=== PATIENT | female | born 1995 | race Hispanic/Latino ===

== ENCOUNTER 2018-10-02 21:46 | Emergency (ER) | payer OTHER, MEDICAID, SELFPAY ==
[2018-10-02 22:00] VITALS: BP 130/85; PULSE 105; RESP 18; TEMP 36.1; O2SAT 96; BMI 43.4
--- NOTE | 2018-10-02 22:33 | ED.ABDPAIN ---
HPI - Abdominal Pain General Chief Complaint: Abdominal Pain Stated Complaint: STATES PAIN FROM CYST ON OVARY Time Seen by Provider: 10/02/18 22:32 Source: patient and family Mode of arrival: ambulatory Limitations: no limitations History of Present Illness HPI narrative: 23-year-old female, nonsmoker presents with chief complaint lower pelvic pain consistent with a previously diagnosed right ovarian cyst. She states her pain is worse with motion and improves with rest. She denies any dizziness, weakness or lightheadedness. She denies nausea or vomiting. She denies any vaginal discharge but has had minimal bleeding. Her symptoms have been significant ever since an IUD that was placed in May. She had been put on some unknown control for help with her symptoms. MD complaint: abdominal pain Onset (ago): day(s) Pain Consistency: constant Location: suprapubic Severity: mild Related Data Allergies Allergy/AdvReac Type Severity Reaction Status Date / Time No Known Drug Allergies Allergy Verified 10/03/18 00:12 Review of Systems Constitutional Denies chills, Denies fever(s), Denies lethargy and Denies weakness Eyes Denies change in vision, Denies eye discharge, Denies irritation and Denies loss of vision ENT Ears, Nose, Mouth, and Throat: Denies change in voice, Denies neck pain and Denies sore throat Cardiovascular Denies chest pain, Denies irregular heart rhythm, Denies lightheadedness, Denies palpitations, Denies dyspnea, Denies dyspnea on exertion and Denies orthopnea Respiratory Denies cough, Denies dyspnea, Denies dyspnea on exertion and Denies wheezing Gastrointestinal Gastrointestinal: Denies abdominal pain, Denies change in bowel habits, Denies diarrhea, Denies nausea and Denies vomiting Genitourinary Denies hematuria, Reports pelvic pain, Denies flank pain, Denies urinary incontinence and Denies urinary urgency Musculoskeletal Denies neck pain Integumentary/Breasts Denies pruritus, Denies erythema, Denies rash and Denies wounds Neurologic Denies confusion, Denies loss of vision and Denies weakness Psychiatric Denies anxiety, Denies confusion, Denies depression, Denies homicidal ideation and Denies suicidal ideation Endocrine Denies palpitations Hematologic/Lymphatic Denies easy bruising Allergic/Immunologic Denies wheezing PFSH Social History Smoking Status: Never smoker Exam Narrative Exam Narrative: GEN: Morbidly obese 23-year-old female in mild distress, clutching her right lower abdomen EYES: Pupils are equal, round, and reactive to light and accommodation. Extraoccular muscles are intact bilaterally. There is no subconjunctival hemorrhage or exudate. CHEST: Lungs are clear to auscultation bilaterally and free of wheezes, rales, or rhonchi. Heart rate is regular rhythm, there are no murmurs, clicks, rubs, or gallops. There is no chest wall tenderness. ABD: Abdomen is soft and moderate tenderness. There is no guarding or rebound. Bowel sounds are normal in all 4 quadrants. There is no mass or organomegaly. EXT: Full painless ROM of all extremities with no loss of sensation or strength. SKIN: Warm, pink, and dry. No erythema or rash Initial Vital Signs Initial Vital Signs: Vital Signs Temperature 97 F L 10/02/18 22:00 Pulse Rate 105 H 10/02/18 22:00 Respiratory Rate 18 10/02/18 22:00 Blood Pressure 130/85 10/02/18 22:00 Pulse Oximetry 96 10/02/18 22:00 Course Orders Ordered: ED Orders 10/02/18 23:13 US pelvic complete Stat 10/03/18 00:33 Urine Microscopic Stat Discontinued Medications Hydrocodone Bitart/Acetaminophen (Vicodin Prepack) 1 bottle MISC SEEINSTR ONE Stop: 10/03/18 01:16 Last Admin: 10/03/18 01:22 Dose: 1 bottle Ketorolac Tromethamine (Toradol) 60 mg IM NOW ONE Stop: 10/02/18 23:13 Last Admin: 10/02/18 23:22 Dose: 60 mg Vital Signs - 8 hr 10/02/18 22:00 10/03/18 01:25 Temperature 97 F L Pulse Rate 105 H 95 H Respiratory Rate 18 18 Blood Pressure 130/85 125/80 Pulse Oximetry 96 98 MDM - Abdominal Pain Differential Diagnosis Differential diagnosis: Likely abdominal pain, acute appendicitis, calculus of kidney, constipation, diverticulitis, endometriosis, gastroenteritis, pancreatitis and small bowel obstruction Medical Records Attestation: I reviewed the patient's medical records. Lab Data Attestation: I reviewed the patient's lab results. Lab Results 10/03/18 Range/Units 00:33 Urine RBC 1-5/hpf (0-5/HPF) Urine WBC 1-5/hpf (0-5/HPF) Ur Squamous Epith Cells 5-10 /hpf H Calcium Oxalate Crystal Moderate H (None) Urine Bacteria Few (2-10) H (None) Urine Mucus 2+ H (Negative) Ur Culture Indicated? Culture not indicate Micro UA Comment Point of care testing: Point of Care Testing Test Results Negative Urine Dip Bedside Urine Glucose 100 mg/dl Bedside Urine Bilirubin - Negative Bedside Urine Ketone +/- 5 Urine Specific [place] 1.03 Bedside Urine Occult Blood +++ Bedside Urine pH 5.5 Bedside Urine Protein + 30 Bedside Urine Urobilinogen +/- 1mg Bedside Urine Nitrite - Negative Bedside Urine Leukocytes +/- 15 Esterase Imaging Data US - abdomen: Radiologist's impression: Well positioned IUD. Trace fluid in the cervix. 1.2 cm maximum diameter follicle left ovary. 1.8 cm simple dominant follicle in right ovary Discharge Plan Departure Patient Disposition: Home Clinical Impression: Ovarian cyst Discharge Date/Time: 10/03/18 01:25 Interventions: ED Discharge Assessment Last Done: 10/03/18 01:25 Instructions: DI for Ovarian Cyst Activity Restrictions/Additional Instructions: *You have been diagnosed with [ ovarian cyst pain ] *What to do: *Take medications as directed *Follow up with your primary care provider in 2-3 days, call for an appointment. Let them know you were seen in the Emergency Department and that we ask that you be seen in follow up *Return to ER if you should have any new, worsening or concerning symptoms
--- NOTE | 2018-10-02 23:13 | DI.US.S_ITS ---
PROCEDURE: US PELVIC COMPLETE INDICATIONS: PAIN; HISTORY CYSTS TECHNIQUE: Real-time scanning was performed of the pelvic organs, with image documentation. Additional endovaginal scanning was necessary due to incomplete visualization of the adnexal and endometrial structures by transabdominal scanning. COMPARISON: None. FINDINGS: Transabdominal scanning: Limited scanning through the kidneys shows no hydronephrosis. No pathologic free abdominal or pelvic fluid. Endovaginal scanning: Uterus: Uterus is normal in size at 8.9 x 4.1 x 5.9 cm. appropriately positioned intrauterine device is noted. Possible section scar is noted in the lower uterine segment; please correlate with clinical history. The endometrium measures 7.4 mm in combined thickness. Ovaries: Right adnexa measures 3.7 x 2.7 x 2.8 cm. There is a 1.8 x 1.4 x 1.3 cm simple cyst in the left adnexa. Left adnexa measures 3.3 x 2.1 x 2.7 cm. There is a 1.1 x 1.2 x 1.0 cm complex cyst in left adnexa. Doppler evaluation of the left adnexal cyst demonstrates no internal vascularity. IMPRESSION: 1. Intrauterine device appears properly positioned. 2. Probable lower uterine segment section scar. 3. 1.8 cm simple right adnexal cyst. 3. 1.2 cm complex left adnexal cyst which likely represents small hemorrhagic cyst. Recommend followup ultrasound in 4-6 weeks to ensure resolution of the finding. Dictated by: Joan Tatum MD, PhD on 10/03/2018 at 9:05 Approved by: Joan Tatum MD, PhD on 10/03/2018 at 9:09
[2018-10-02] MEDS: KETOROLAC 60 MG/2 ML VIAL IM (23:22)
[2018-10-03 00:47] LABS: Calcium Oxalate Crystals Urine Moderate; RBC Urine 1-5/HPF (0-5/HPF); Squamous Epithelial Cell Urine 5-10 /HPF; WBC Urine 1-5/HPF (0-5/HPF)
[2018-10-03 00:48] LABS: Bacteria Urine Few (2-10); Mucus Urine 2+ (Negative)
[2018-10-03] MEDS: HYDROCODONE/ACET 5/325 PREPACK 1 BOTTLE MISC (01:22)
[2018-10-03 01:25] VITALS: BP 125/80; PULSE 95; RESP 18; O2SAT 98
== END 2018-10-03 01:25 | disposition home or self-care (01) ==
PROVIDERS: Emergency Provider Emergency Medicine
DX: N83.209 Unspecified ovarian cyst, unspecified side (principal)
CPT/HCPCS: 76830; 76856; 81003; 81015; 81025; 96372; 99282; 99284; J1885

== ENCOUNTER 2019-01-22 22:54 | Emergency (ER) | payer OTHER, MEDICAID, SELFPAY ==
[2019-01-22 23:04] VITALS: BP 137/84; PULSE 120; RESP 20; TEMP 36.7; O2SAT 96; BMI 43.4
--- NOTE | 2019-01-22 23:55 | ED.BACK ---
HPI - Back Pain/Injury General Chief Complaint: Back Pain/Injury Stated Complaint: LOW BACK PAIN Time Seen by Provider: 01/22/19 22:58 Source: patient and family Mode of arrival: ambulatory Limitations: no limitations History of Present Illness HPI Narrative: 23-year-old female nonsmoker presents with 1 year of lumbar pain with radiation to her right buttock. She states the pain has been present off and on ever since she had an epidural with the delivery of her last child. She denies any numbness, tingling or weakness. She states her pain is worse with motion and improves with rest. She denies fever or chills. her pain is present the majority of the time but made worse by the above. She denies any saddle anesthesia or foot drop. She has no trouble with bowel or bladder control MD Complaint: back pain and back injury Onset (ago): year(s) Duration: intermittent Similar Symptoms Previously: Yes Location: lumbar spine Severity: moderate Quality: sharp and stabbing Radiation: buttocks Severity scale (1-10): 8 Relieving factors: none Exacerbating factors: movement Context: other Associated symptoms: denies other symptoms Related Data Previous Rx's Medication Instructions Recorded hydrocodone-acetaminophen 1 tab PO Q4-6H PRN #10 tab 01/23/19 ketorolac 10 mg PO Q6H PRN #14 tab 01/23/19 prednisone 20 mg PO DAILY #5 tab 01/23/19 Allergies Allergy/AdvReac Type Severity Reaction Status Date / Time No Known Drug Allergies Allergy Verified 10/03/18 00:12 Review of Systems Review of Systems ROS Unobtainable: All systems reviewed & are unremarkable except as noted in HPI and below Constitutional Denies chills, Denies fever(s), Denies lethargy and Denies weakness Eyes Denies change in vision, Denies eye discharge, Denies irritation and Denies loss of vision ENT Ears, Nose, Mouth, and Throat: Denies change in voice, Denies neck pain and Denies sore throat Cardiovascular Denies chest pain, Denies irregular heart rhythm, Denies lightheadedness, Denies palpitations, Denies dyspnea, Denies dyspnea on exertion and Denies orthopnea Respiratory Denies cough, Denies dyspnea, Denies dyspnea on exertion and Denies wheezing Gastrointestinal Gastrointestinal: Denies abdominal pain, Denies change in bowel habits, Denies diarrhea, Denies nausea and Denies vomiting Genitourinary Denies hematuria, Denies flank pain, Denies urinary incontinence and Denies urinary urgency Musculoskeletal Reports back pain and Denies neck pain Integumentary/Breasts Denies pruritus, Denies erythema, Denies rash and Denies wounds Neurologic Denies confusion, Denies loss of vision and Denies weakness Psychiatric Denies anxiety, Denies confusion, Denies depression, Denies homicidal ideation and Denies suicidal ideation Endocrine Denies palpitations Hematologic/Lymphatic Denies easy bruising Allergic/Immunologic Denies wheezing PFSH Social History Smoking Status: Never smoker Social History Smoking Status: Never smoker Exam Narrative Exam Narrative: GENERAL: This is a well-nourished, well-developed patient, in mild distress. HEAD: Atraumatic. Normocephalic. No temporal or scalp tenderness. EYES: Pupils equal round and reactive. Extraocular motions intact. No scleral icterus. No injection or drainage. ENT: Nose without bleeding, purulent drainage or septal hematoma. Throat without erythema, tonsillar hypertrophy or exudate. Uvula midline. Airway patent. NECK: Trachea midline. No JVD or lymphadenopathy. Supple, nontender, no meningeal signs. CARDIOVASCULAR: Regular rate and rhythm without murmurs, gallops, or rubs. RESPIRATORY: Clear to auscultation. Breath sounds equal bilaterally. No wheezes, rales, or rhonchi. GASTROINTESTINAL: Abdomen soft, non-tender, nondistended. No hepato-splenomegaly, or palpable masses. No guarding. EXTREMITIES: No clubbing, cyanosis, or edema. No joint tenderness, effusion, or edema noted. BACK: decorating machine tender but free of any obvious external abnormalities. Patient exam notes decreased range of motion and muscle spasm, but no CVA tenderness, or vertebral point tenderness. There are no symptoms of cauda equina such as saddle anesthesia, and decreased reflexes, decreased sensation or strength. NEURO: AOx3. SKIN: No rash or erythema. Initial Vital Signs Initial Vital Signs: Vital Signs Temperature 98.1 F 01/22/19 23:04 Pulse Rate 120 H 01/22/19 23:04 Respiratory Rate 20 01/22/19 23:04 Blood Pressure 137/84 01/22/19 23:04 Pulse Oximetry 96 01/22/19 23:04 Course Orders Ordered: Discontinued Medications Hydrocodone Bitart/Acetaminophen (Vicodin Prepack) 1 bottle MISC SEEINSTR ONE Stop: 01/23/19 00:07 Last Admin: 01/23/19 00:23 Dose: 1 bottle Ketorolac Tromethamine (Toradol) 60 mg IM NOW ONE Stop: 01/23/19 00:07 Last Admin: 01/23/19 00:23 Dose: 60 mg Prednisone (Deltasone) 40 mg PO NOW ONE Stop: 01/23/19 00:07 Last Admin: 01/23/19 00:24 Dose: 40 mg Vital Signs - 8 hr 01/22/19 23:04 Temperature 98.1 F Pulse Rate 120 H Respiratory Rate 20 Blood Pressure 137/84 Pulse Oximetry 96 MDM - Back Pain/Injury MDM Narrative Medical decision making narrative: Multiple etiologies of back pain considered including; Epidural abscess, cauda equina, mass occupying lesion, and other considered Discharge Plan Departure Patient Disposition: Home Clinical Impression: Strain of lumbar region Qualifiers: Encounter type: initial encounter Qualified Code(s): S39.012A - Strain of muscle, fascia and tendon of lower back, initial encounter Instructions: DI for Low Back Pain Activity Restrictions/Additional Instructions: *You have been diagnosed with [chronic low back pain] *What to do: *Take medications as directed *Follow up with your primary care provider in 2-3 days, call for an appointment. Let them know you were seen in the Emergency Department and that we ask that you be seen in follow up *Return to ER if you should have any new, worsening or concerning symptoms, such as [worsening pain, fever, chills, weakness of your right leg, trouble controlling her bowel or bladder or other bothersome symptoms] Prescriptions: New hydrocodone-acetaminophen 5-325 mg tablet 1 tab PO Q4-6H PRN (Reason: pain) Qty: 10 RF: 0 prednisone 20 mg tablet 20 mg PO DAILY Qty: 5 RF: 0 ketorolac 10 mg tablet 10 mg PO Q6H PRN (Reason: pain) Qty: 14 RF: 0
[2019-01-23] MEDS: KETOROLAC 60 MG/2 ML VIAL IM (00:23)
[2019-01-23] MEDS: HYDROCODONE/ACET 5/325 PREPACK 1 BOTTLE MISC (00:23)
[2019-01-23] MEDS: predniSONE 20 MG TABLET 40 MG PO (00:24)
[2019-01-23 00:56] VITALS: BP 144/94; PULSE 103; O2SAT 97
== END 2019-01-23 00:56 | disposition home or self-care (01) ==
PROVIDERS: Emergency Provider Emergency Medicine
DX: S39.012A Strain of muscle, fascia and tendon of lower back, initial encounter (principal)
CPT/HCPCS: 96372; 99282; 99283; J1885

== ENCOUNTER → 2019-04-09 14:30 | Outpatient (CLI) | payer OTHER, MEDICAID, SELFPAY ==
--- NOTE | 2019-04-09 14:33 | DI.RAD.S_ITS ---
PROCEDURE: XR ABDOMEN 1V INDICATIONS: Missing IUD TECHNIQUE: One view of the abdomen acquired. COMPARISON: None. FINDINGS: Surgical changes and devices: None. Bowel: Bowel gas pattern is normal. Soft tissues: No suspicious abdominal calcifications. Visualized solid organ contours appear normal in size. Bones: No suspicious bony lesions. IMPRESSION: No visualized IUD. Dictated by: Bi Thorne M.D. on 04/09/2019 at 15:51 Approved by: Bi Thorne M.D. on 04/09/2019 at 15:52
== END ==
PROVIDERS: PCP Hospitalist; Visit Provider Specialist
DX: T83.32XA Displacement of intrauterine contraceptive device, initial encounter (principal)
CPT/HCPCS: 74018

== ENCOUNTER → 2019-05-06 13:00 | Outpatient (CLI) | payer OTHER, MEDICAID, SELFPAY | PROVIDERS: PCP Hospitalist; Visit Provider Hospitalist | DX: R19.7 Diarrhea, unspecified (principal) | CPT/HCPCS: 87045; 87147; 87899 ==

== ENCOUNTER 2019-05-16 23:17 | Emergency (ER) | payer OTHER, MEDICAID, SELFPAY ==
--- NOTE | 2019-05-16 23:20 | ED.ABDPAIN ---
HPI - Abdominal Pain General Chief Complaint: GI Bleed Stated Complaint: abdominal pain Time Seen by Provider: 05/16/19 23:20 Source: patient Mode of arrival: ambulatory Limitations: no limitations History of Present Illness HPI narrative: Patient is a 24-year-old female here for evaluation of bright red blood per rectum. Patient states she has been diagnosed with hemorrhoids in the past. She states that she does have pain with going to the bathroom. She states she had 1 episode of bright red blood today. She also states she has diarrhea. This is not new. She has talked with her primary doctor about this. She states that her primary doctor has not referred her to see a GI specialist. No vaginal bleeding. No urinary symptoms. She also is complaining of right-sided abdominal pain. Related Data Previous Rx's Medication Instructions Recorded citalopram 20 mg tablet 20 mg PO DAILY #30 tab 04/01/19 norelgestromin 150 mcg-e.estradiol 1 patch TRANSDERMAL QWEEK #3 each 04/09/19 35 mcg/24 hr weekly transderm patch hydrocortisone acetate 25 mg 25 mg HI BEDTIME #12 each 05/05/19 rectal suppository nortriptyline 25 mg capsule 25 mg PO BEDTIME #30 cap 05/14/19 Allergies Allergy/AdvReac Type Severity Reaction Status Date / Time No Known Drug Allergies Allergy Verified 05/16/19 23:29 Review of Systems Constitutional Denies fever(s) Cardiovascular Denies chest pain and Denies dyspnea Respiratory Denies dyspnea Gastrointestinal Gastrointestinal: Reports abdominal pain, Denies nausea and Denies vomiting Comments: Diarrhea bright red blood per rectum Musculoskeletal Denies back pain and Denies arthralgias Integumentary/Breasts Denies rash Neurologic Denies behavioral changes Psychiatric Denies behavioral changes Hematologic/Lymphatic Denies easy bleeding and Denies easy bruising [facility] Medical History Hemorrhoids (Acute) Social History Smoking Status: Never smoker Social History Smoking Status: Never smoker Exam Initial Vital Signs Initial Vital Signs: Vital Signs Temperature 98.4 F 05/16/19 23:25 Pulse Rate 97 H 05/16/19 23:25 Respiratory Rate 18 05/16/19 23:25 Blood Pressure 153/90 H 05/16/19 23:25 Pulse Oximetry 98 05/16/19 23:25 Const General: cooperative, well developed and well groomed Orientation: alert, awake and oriented x3 Resp Effort & Inspection: normal respiratory effort Auscultation: clear to auscultation bilaterally Cardio Rate: tachycardic Rhythm: regular rhythm GI Inspection: non-distended Palpation: soft, No firm and tender (Mild tender right side abdomen) Skin Lesions: no lesions Rashes: no rashes Neuro General: alert and awake Cognition: normal cognition Speech: speech normal Extrem General: normal to inspection and capillary refill normal Psych Appearance: grossly normal and well kempt Course Orders Ordered: ED Orders 05/16/19 23:40 CT abdomen pelvis w con Stat Basic Metabolic Panel Stat Complete Blood Count AUTO DIFF Stat 05/16/19 23:54 Urine Culture Stat Urine Microscopic Stat Discontinued Medications Sodium Chloride (Normal Saline 0.9%) 1,000 mls @ 1,000 mls/hr IV BOLUS ONE Stop: 05/17/19 00:39 Last Infusion: 05/17/19 01:30 Dose: 0 mls/hr Admin: 05/17/19 00:15 Dose: 1,000 mls/hr Vital Signs - 8 hr 05/16/19 23:25 05/17/19 01:33 Temperature 98.4 F Pulse Rate 97 H 109 H Respiratory Rate 18 14 Blood Pressure 153/90 H Blood Pressure [Right Arm] 109/52 L Pulse Oximetry 98 98 MDM - Abdominal Pain Medical Records Attestation: I reviewed the patient's medical records. Lab Data Attestation: I reviewed the patient's lab results. Result diagrams: 05/17/19 00:15 05/17/19 00:15 Lab Results 05/16/19 05/17/19 05/17/19 Range/Units 23:54 00:15 00:15 WBC 11.6 H (4.5-11.0) X10^3/uL RBC 5.16 (4.0-5.2) X10^6/uL Hgb 14.0 (12.0-16.0) g/dL Hct 40.5 (36-46) % MCV 78.4 L (80-100) fL MCH 27.1 (26-34) PG MCHC 34.6 (30-36) % RDW 13.7 (11.6-14.8) % Plt Count 254 (150-400) X10^3/uL Neut % (Auto) 58.5 (50-75) % Lymph % (Auto) 31.8 (25-40) % Stone % (Auto) 7.0 (3-14) % Eos % (Auto) 2.2 (2-4) % Baso % (Auto) 0.5 (0-2) % Neut # (Auto) 6800 (5072-7476) /uL Lymph # (Auto) 3700 (0293-9229) /uL Stone # (Auto) 800 (0-900) /uL Eos # (Auto) 300 (0-450) /uL Baso # (Auto) 100 (0-100) /uL Sodium 139 (137-145) mmol/L Potassium 3.9 (3.4-5.1) mmol/L Chloride 100 (98-107) mmol/L Carbon Dioxide 25 (22-32) mmol/L BUN 9 (7-17) mg/dL Creatinine 0.40 L (0.52-1.04) mg/dL Estimated GFR > 60.0 (>60) mL/min BUN/Creatinine Ratio 22.5 H (6-22) Glucose 257 H (70-100) mg/dL Calcium 9.8 (8.4-10.2) mg/dL Urine RBC 0-1/hpf (0-5/HPF) Urine WBC 0-1/hpf (0-5/HPF) Ur Squamous Epith Cells 1-5 /hpf (0-5/HPF) Urine Bacteria None seen (None) Ur Culture Indicated? Specimen cultured Micro UA Comment Vicky esterase + Point of care testing: Point of Care Testing Test Results Negative Urine Dip Bedside Urine Glucose 500 mg/dl Bedside Urine Bilirubin - Negative Bedside Urine Ketone + 15 Urine Specific [place] 1.025 Bedside Urine Occult Blood - Negative Bedside Urine pH 6 Bedside Urine Protein +/- 15 Bedside Urine Urobilinogen +/- 1mg Bedside Urine Nitrite + Positive Bedside Urine Leukocytes + [address] scan - abdomen: Radiologist's impression: Preliminary read Normal appendix No diverticulitis or bowel obstruction MDM Narrative Medical decision making narrative: Labs are unremarkable, has a relatively benign abdominal exam. CT scan is negative. I do suspect her symptoms are secondary to her hemorrhoids. I did inform her that she should talk with the primary doctor about referral to have a colonoscopy. There is no surgical issue currently. Will hold on further workup. Patient was given return precautions and follow-up instructions. She expressed understanding and agreement plan. Discharge Plan Departure Patient Disposition: Home Clinical Impression: Bright red blood per rectum Abdominal pain Qualifiers: Abdominal location: unspecified location Qualified Code(s): R10.9 - Unspecified abdominal pain Instructions: DI for Rectal Bleeding Activity Restrictions/Additional Instructions: I do recommend that you talk with your primary doctor on Saturday about the indications for referral to have a colonoscopy. Return to the emergency department for any new symptoms. Prescriptions: No Action citalopram [Celexa] 20 mg tablet 20 mg PO DAILY Qty: 30 RF: 1 Xulane 150-35 mcg/24 hr patch weekly 1 patch transdermal QWEEK Qty: 3 RF: 6 hydrocortisone acetate [Anucort-HC] 25 mg suppository 25 mg HI BEDTIME Qty: 12 RF: 0 nortriptyline 25 mg capsule 25 mg PO BEDTIME Qty: 30 RF: 0 Referrals: Amanda Balderrama MD [Primary Care Provider] -
[2019-05-16 23:25] VITALS: BP 153/90; PULSE 97; RESP 18; TEMP 36.9; O2SAT 98; BMI 36.6
--- NOTE | 2019-05-16 23:40 | DI.CT.S_ITS ---
PROCEDURE: CT ABDOMEN PELVIS W CON INDICATIONS: Right-sided abdominal pain TECHNIQUE: After the administration of oral and intravenous contrast, 5 mm thick sections acquired from the diaphragms to the symphysis. 5 mm thick coronal and sagittal reformats were performed. For radiation dose reduction, the following was used: automated exposure control, adjustment of mA and/or kV according to patient size. COMPARISON: None. FINDINGS: Image quality: Diagnostic. ABDOMEN: Lung bases: Lung bases are clear. Heart size is normal. Solid organs: The liver is enlarged and measures up to 24.4 cm in craniocaudal dimension. There is prominent hypodensity of the liver when compared to the spleen. More focally prominent areas of low attenuation are evident along the falciform ligament. No solid liver lesions are appreciated. The gallbladder is decompressed and subsequently not well evaluated. No intrahepatic or extrahepatic biliary dilatation is evident. The spleen is enlarged, as well and measures up to 15.7 cm in craniocaudal dimension. No focal splenic lesions are appreciated. The adrenals and pancreas are within normal limits. Both kidneys are normal in size. There is no hydronephrosis or nephrolithiasis. 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 Peritoneum and bowel: Stomach is unremarkable. The small bowel loops are nondilated. The appendix is well-visualized and normal in size. Air and stool are seen within the colon. No free fluid, loculated fluid collection or free air is evident. Subcutaneous thickening and edema is identified within the periumbilical region, which may represent scarring from previous surgery. Nodes and vessels: No retroperitoneal or mesenteric adenopathy. Aorta and inferior vena cava are normal in caliber. Bones: No acute fracture or suspicious osseous lesion. PELVIS: Genitourinary: Bladder wall thickness is normal. The uterus and ovaries are not enlarged or adequately evaluated on CT. Miscellaneous: No inguinal hernias or adenopathy. No free fluid or loculated fluid collection is evident. Bones: No suspicious bony lesions. No acute pelvic fractures are evident. Mild elongation of the bilateral acetabula is present. This can be seen in the setting of femoral acetabular impingement. Please correlate clinically. IMPRESSION: 1. No acute process is evident within the abdomen or pelvis. 2. Hepatosplenomegaly. There is also hepatic steatosis. 3. Normal appendix. No bowel obstruction. Note: The preliminary [facility] report and the final report are concordant. Dictated by: Bry Goodson M.D. on 05/17/2019 at 7:10 Approved by: Bry Goodson M.D. on 05/17/2019 at 7:15
[2019-05-17] MEDS: SODIUM CHLORIDE 0.9% 1,000 ML 1000 ML IV (00:15)
[2019-05-17 00:16] LABS: Bacteria Urine None Seen; RBC Urine 0-1/HPF (0-5/HPF); Squamous Epithelial Cell Urine 1-5 /HPF (0-5/HPF); WBC Urine 0-1/HPF (0-5/HPF)
[2019-05-17 00:17] LABS: Culture Indicated Urine Specimen Cultured; Urine Comments LEU ESTERASE +
[2019-05-17 00:31] LABS: Add Manual Diff / Slide Review NO; Basophils Absolute Auto 100 /uL (0-100); Basophils Percent Auto 0.5 % (0-2); Eosinophils Absolute Auto 300 /uL (0-450); Eosinophils Percent Auto 2.2 % (2-4); Hematocrit 40.5 % (36-46); Lymphocytes Absolute Auto 3700 /uL (1100-4500); Lymphocytes Percent Auto 31.8 % (25-40); Mean Corpuscular HGB Conc 34.6 % (30-36); Mean Corpuscular Hemoglobin 27.1 PG (26-34); Mean Corpuscular Volume 78.4 fL (80-100); Monocytes Absolute Auto 800 /uL (0-900); Neutrophils Absolute Auto 6800 /uL (1500-7000); Neutrophils Percent Auto 58.5 % (50-75); Platelet Count 254 X10^3/uL (150-400); Red Blood Cell Count 5.16 X10^6/uL (4.0-5.2); Red Cell Distribution Width 13.7 % (11.6-14.8); White Blood Cell Count 11.6 X10^3/uL (4.5-11.0)
[2019-05-17 00:36] LABS: BUN Creatinine Ratio 22.5 (6-22); Blood Urea Nitrogen 9 mg/dL (7-17); Calcium 9.8 mg/dL (8.4-10.2); Carbon Dioxide 25 mmol/L (22-32); Chloride 100 mmol/L (98-107); Estimated Glomerular Filt Rate > 60.0 mL/min (>60); Glucose 257 mg/dL (70-100); HEMOLYSIS < 15 (0-50); Potassium 3.9 mmol/L (3.4-5.1); Sodium 139 mmol/L (137-145)
[2019-05-17 01:33] VITALS: BP 109/52; PULSE 109; RESP 14; O2SAT 98
--- NOTE | 2019-05-17 02:06 | PC.NURSE ---
Pt reports having a month of water stools and some bloody stools. Tonight she had bright red blood and clots in the toilet after bowel movment. She called PCP who sent her to ER for evaluation. She reports some lightheadedness and feeling tired. conjunctiva is bright pink with no pallor noted. Pt came in a wheelchair then ambulated self to restroom.
[2019-05-17 02:15] VITALS: BP 115/81; PULSE 98; RESP 14; O2SAT 98
== END 2019-05-17 02:15 | disposition home or self-care (01) ==
PROVIDERS: Emergency Provider Emergency Medicine; PCP Hospitalist
DX: R10.9 Unspecified abdominal pain (principal); K62.5 Hemorrhage of anus and rectum
CPT/HCPCS: 36415; 36591; 74177; 80048; 81003; 81015; 81025; 85025; 87086; 96360; 99283; 99285; Q9967

== ENCOUNTER 2019-05-22 22:42 | Emergency (ER) | payer OTHER, MEDICAID, SELFPAY ==
[2019-05-22 23:21] VITALS: BP 98/62; PULSE 117; RESP 22; TEMP 36.8; O2SAT 96
[2019-05-23] MEDS: SODIUM CHLORIDE 0.9% 1,000 ML 1000 ML IV (00:25)
[2019-05-23 00:33] LABS: Prothrombin Time 11.8 SECONDS (10.1-12.7)
--- NOTE | 2019-05-23 00:33 | ED_ITS ---
HPI - Abdominal Pain General Chief Complaint: Abdominal Pain Stated Complaint: LOTS OF PAIN DOWN BELLOW Time Seen by Provider: 05/23/19 00:33 Source: patient Mode of arrival: ambulatory Limitations: no limitations History of Present Illness HPI narrative: A 24-year-old female comes to the emergency with complaint of abdominal pain. Patient states that she has been having this abdominal pain on off for a while but it is much worse tonight. She did start her right side but now it is more right lower quadrant. Patient has had issues with nausea but no vomiting. She has had issues with bowel movements with blood in them on and off for several weeks and is in the process of being set up for a colonoscopy. She is currently on her period but states that that is a regular thing and has not been related to her blood. She denies any dysuria urgency or frequency. She denies any vaginal discharge or odor. Patient states she has a history of PCOS. She has been following with Dr. Balderrama in order to get set up for full or other evaluation. She has had a history of an ovarian cyst which required removal, sh e states was about softball size. Related Data Previous Rx's Medication Instructions Recorded citalopram 20 mg tablet 20 mg PO DAILY #30 tab 04/01/19 norelgestromin 150 mcg-e.estradiol 1 patch TRANSDERMAL QWEEK #3 each 04/09/19 35 mcg/24 hr weekly transderm patch nortriptyline 25 mg capsule 25 mg PO BEDTIME #30 cap 05/14/19 hydrocortisone acetate 25 mg 25 mg UT BEDTIME #12 each 05/19/19 rectal suppository dicyclomine 20 mg PO QID PRN #14 tab 05/23/19 Allergies Allergy/AdvReac Type Severity Reaction Status Date / Time No Known Drug Allergies Allergy Verified 05/19/19 12:17 Review of Systems Review of Systems ROS Unobtainable: All systems reviewed & are unremarkable except as noted in HPI and below PFSH Social History Smoking Status: Never smoker Social History Smoking Status: Never smoker Exam Narrative Exam Narrative: GENERAL: Alert and oriented x three, obese female in moderate distress. HEENT: Head normocephalic, atraumatic, EOMI, pupils reactive, face symmetric, moist mucous membranes NECK: Supple, full range of motion CARDIOVASCULAR: Regular rate and rhythm without murmurs, rubs or gallops. RESPIRATORY: Breath sounds equal bilaterally, no wheezes rales or rhonchi. ABDOMEN: Soft, right lower quadrant tenderness. Normoactive bowel sounds all 4 quadrants. No guarding or rebound, rigidity, no mass. : Mild right CVA tenderness, no left CVA tenderness. EXTREMITIES: Normal range of motion, no clubbing or edema. Neurovascularly intact NEUROLOGICAL: Cranial nerves II through XII grossly intact. Moving all e xtremities SKIN: Warm, dry, no petechiae, no rashes or lesions. Initial Vital Signs Initial Vital Signs: Vital Signs Temperature 98.3 F 05/22/19 23:21 Pulse Rate 117 H 05/22/19 23:21 Respiratory Rate 22 05/22/19 23:21 Blood Pressure 98/62 05/22/19 23:21 Pulse Oximetry 96 05/22/19 23:21 Course Orders Ordered: ED Orders 05/22/19 23:32 Complete Blood Count AUTO DIFF Stat Comprehensive Metabolic Panel Stat Lipase Stat Partial Thromboplastin Time Stat Prothrombin Time INR Stat 05/23/19 00:59 CT abdomen pelvis w con Stat 05/23/19 01:00 Urine Culture Stat Urine Microscopic Stat Discontinued Medications Sodium Chloride (Normal Saline 0.9%) 1,000 mls @ 1,000 mls/hr IV BOLUS ONE Stop: 05/23/19 00:34 Last Infusion: 05/23/19 01:38 Dose: 0 mls/hr Documented by: Admin: 05/23/19 00:25 Dose: 1,000 mls/hr Documented by: DENA Ketorolac Tromethamine (Toradol) 30 mg IV NOW ONE Stop: 05/23/19 00:59 Last Admin: 05/23/19 01:17 Dose: 30 mg Documented by: DENA Ondansetron HCl (Zofran) 4 mg IV NOW ONE Stop: 05/23/19 00:59 Last Admin: 05/23/19 01:17 Dose: 4 mg Documented by: DENA Vital Signs Vital signs: Vital Signs - 8 hr 05/22/19 23:21 05/23/19 01:18 05/23/19 03:12 Temperature 98.3 F Pulse Rate 117 H 111 H 106 H Respiratory Rate 22 17 22 Blood Pressure 98/62 114/67 Blood Pressure [Left Arm] 141/88 H Pulse Oximetry 96 98 99 MDM - Abdominal Pain Lab Data Attestation: I reviewed the patient's lab results. Result diagrams: 05/23/19 00:20 05/23/19 00:20 Labs: Lab Results 05/23/19 05/23/19 05/23/19 Range/Units 00:20 00:20 00:20 WBC 12.1 H (4.5-11.0) X10^3/uL RBC 5.01 (4.0-5.2) X10^6/uL Hgb 13.4 (12.0-16.0) g/dL Hct 39.6 (36-46) % MCV 79.0 L (80-100) fL MCH 26.8 (26-34) PG MCHC 34.0 (30-36) % RDW 13.8 (11.6-14.8) % Plt Count 298 (150-400) X10^3/uL Neut % (Auto) 61.5 (50-75) % Lymph % (Auto) 29.0 (25-40) % Barton % (Auto) 6.9 (3-14) % Eos % (Auto) 1.9 L (2-4) % Baso % (Auto) 0.7 (0-2) % Neut # (Auto) 7500 H (2344-9777) /uL Lymph # (Auto) 3500 (0120-2376) /uL Barton # (Auto) 800 (0-900) /uL Eos # (Auto) 200 (0-450) /uL Baso # (Auto) 100 (0-100) /uL PT 11.8 (10.1-12.7) SECONDS INR 1.0 (0.9-1.3) APTT 34 (26.4-36.2) SECONDS Sodium 139 (137-145) mmol/L Potassium 4.0 (3.4-5.1) mmol/L Chloride 102 (98-107) mmol/L Carbon Dioxide 24 (22-32) mmol/L BUN 9 (7-17) mg/dL Creatinine 0.40 L (0.52-1.04) mg/dL Estimated GFR > 60.0 (>60) mL/min BUN/Creatinine Ratio 22.5 H (6-22) Glucose 221 H (70-100) mg/dL Calcium 9.4 (8.4-10.2) mg/dL Total Bilirubin 0.2 (0.2-1.3) mg/dL AST 78 H (14-36) IU/L ALT 38 (9-52) IU/L Alkaline Phosphatase 69 (38-126) U/L Total Protein 7.7 (6.3-8.2) g/dL Albumin 4.2 (3.5-5.0) g/dL Globulin 3.5 (1.7-4.1) g/dL Albumin/Globulin Ratio 1.2 (1.0-2.8) Lipase 44 (23-300) U/L Urine RBC (0-5/HPF) Urine WBC (0-5/HPF) Ur Squamous Epith Cells (0-5/HPF) Urine Bacteria (None) Ur Culture Indicated? 05/23/19 Range/Units 01:00 WBC (4.5-11.0) X10^3/uL RBC (4.0-5.2) X10^6/uL Hgb (12.0-16.0) g/dL Hct (36-46) % MCV (80-100) fL MCH (26-34) PG MCHC (30-36) % RDW (11.6-14.8) % Plt Count (150-400) X10^3/uL Neut % (Auto) (50-75) % Lymph % (Auto) (25-40) % Barton % (Auto) (3-14) % Eos % (Auto) (2-4) % Baso % (Auto) (0-2) % Neut # (Auto) (9035-7402) /uL Lymph # (Auto) (0061-1537) /uL Barton # (Auto) (0-900) /uL Eos # (Auto) (0-450) /uL Baso # (Auto) (0-100) /uL PT (10.1-12.7) SECONDS INR (0.9-1.3) APTT (26.4-36.2) SECONDS Sodium (137-145) mmol/L Potassium (3.4-5.1) mmol/L Chloride (98-107) mmol/L Carbon Dioxide (22-32) mmol/L BUN (7-17) mg/dL Creatinine (0.52-1.04) mg/dL Estimated GFR (>60) mL/min BUN/Creatinine Ratio (6-22) Glucose (70-100) mg/dL Calcium (8.4-10.2) mg/dL Total Bilirubin (0.2-1.3) mg/dL AST (14-36) IU/L ALT (9-52) IU/L Alkaline Phosphatase (38-126) U/L Total Protein (6.3-8.2) g/dL Albumin (3.5-5.0) g/dL Globulin (1.7-4.1) g/dL Albumin/Globulin Ratio (1.0-2.8) Lipase (23-300) U/L Urine RBC None seen (0-5/HPF) Urine WBC 0-1/hpf (0-5/HPF) Ur Squamous Epith Cells 1-5 /hpf (0-5/HPF) Urine Bacteria Few (2-10) H (None) Ur Culture Indicated? Specimen cultured Point of care testing: Point of Care Testing Test Results Negative Urine Dip Bedside Urine Glucose 250 mg/dl Bedside Urine Bilirubin - Negative Bedside Urine Ketone + 15 Urine Specific [place] 1.030 Bedside Urine Occult Blood - Negative Bedside Urine pH 6.0 Bedside Urine Protein + 30 Bedside Urine Urobilinogen 1+ 2mg Bedside Urine Nitrite - Negative Bedside Urine Leukocytes +/- [address] scan - abdomen: Radiologist's impression: Twenty lung bases clear, fatty hepatomegaly again noted. Gallbladder and solid organs otherwise unremarkable. No urolithiasis. Uterus, ovaries and appendix normal. No bowel obstruction, pneumoperitoneum, hernia or acute fracture. [facility] Narrative Medical decision making narrative: Discussed with patient her white count is very slightly high at 13, she has been slightly tachycardic throughout her stay but she states that is normal for her when she is in pain. Patient's lab work otherwise not show a lot of other major abnormalities her single LFT is slightly elevated. Urine shows some leuks but no nitrates and was sent for urine culture but patient's symptoms sound more GI in nature she is scheduled to follow up with General surgery on Saturday for possible scope. CT of abdomen pelvis does not show any acute findings. Patient has never been on Bentyl but does describe crampy like pain so we discussed trying this in the short term. Patient feeling more comfortable. Discharge Plan Departure Patient Disposition: Home Clinical Impression: Abdominal pain Discharge Date/Time: 05/23/19 03:12 Instructions: DI for Abdominal Pain-Adult Activity Restrictions/Additional Instructions: Follow-up with your physician this week for recheck. I would encourage you to follow up with General surgery for colonoscopy is you have already planning. Your urine was sent for urine culture today shows possible infection and takes 24-48 hours to result. If positive you will get a phone call. Continue home medications as prescribed. Take Bentyl 1 tablet every 6-8 hours as needed for abdominal spasm or cramping. Your prescription was sent to [facility] in [place]. Return to the emergency department for fevers greater than 100.4 F, persistent vomiting, rapidly worsening symptoms, passing out, new chest pain or shortness of breath, bloody stools that are increasing or any other new or concerning symptoms. Prescriptions: New dicyclomine 20 mg tablet 20 mg PO QID PRN (Reason: spasm) Qty: 14 RF: 0 No Action citalopram [Celexa] 20 mg tablet 20 mg PO DAILY Qty: 30 RF: 1 Xulane 150-35 mcg/24 hr patch weekly 1 patch transdermal QWEEK Qty: 3 RF: 6 nortriptyline 25 mg capsule 25 mg PO BEDTIME Qty: 30 RF: 0 hydrocortisone acetate [Anucort-HC] 25 mg suppository 25 mg UT BEDTIME Qty: 12 RF: 0 Referrals: Amanda Balderrama MD [Primary Care Provider] -
[2019-05-23 00:35] LABS: Add Manual Diff / Slide Review NO; Basophils Absolute Auto 100 /uL (0-100); Basophils Percent Auto 0.7 % (0-2); Eosinophils Absolute Auto 200 /uL (0-450); Eosinophils Percent Auto 1.9 % (2-4); Hematocrit 39.6 % (36-46); Hemoglobin 13.4 g/dL (12.0-16.0); Lymphocytes Absolute Auto 3500 /uL (1100-4500); Mean Corpuscular Hemoglobin 26.8 PG (26-34); Monocytes Absolute Auto 800 /uL (0-900); Monocytes Percent Auto 6.9 % (3-14); Neutrophils Absolute Auto 7500 /uL (1500-7000); Neutrophils Percent Auto 61.5 % (50-75); PTT Partial Thromboplastin Tim 34 SECONDS (26.4-36.2); Platelet Count 298 X10^3/uL (150-400); Red Blood Cell Count 5.01 X10^6/uL (4.0-5.2); Red Cell Distribution Width 13.8 % (11.6-14.8); White Blood Cell Count 12.1 X10^3/uL (4.5-11.0)
[2019-05-23 00:37] LABS: Alanine Aminotransferase 38 IU/L (9-52); Albumin 4.2 g/dL (3.5-5.0); Albumin Globulin Ratio 1.2 (1.0-2.8); Alkaline Phosphatase 69 U/L (38-126); Aspartate Aminotransferase 78 IU/L (14-36); BUN Creatinine Ratio 22.5 (6-22); Bilirubin Total 0.2 mg/dL (0.2-1.3); Blood Urea Nitrogen 9 mg/dL (7-17); Calcium 9.4 mg/dL (8.4-10.2); Carbon Dioxide 24 mmol/L (22-32); Chloride 102 mmol/L (98-107); Estimated Glomerular Filt Rate > 60.0 mL/min (>60); Globulin 3.5 g/dL (1.7-4.1); Glucose 221 mg/dL (70-100); HEMOLYSIS < 15 (0-50); Lipase 44 U/L (23-300); Sodium 139 mmol/L (137-145); Total Protein 7.7 g/dL (6.3-8.2)
--- NOTE | 2019-05-23 00:59 | DI.CT.S_ITS ---
PROCEDURE: CT ABDOMEN PELVIS W CON INDICATIONS: Right lower abdominal pain, acute on chronic TECHNIQUE: After the administration of intravenous contrast, 5 mm thick sections acquired from the diaphragm to the symphysis. 5 mm coronal and sagittal reformats were acquired. For radiation dose reduction, the following was used: automated exposure control, adjustment of mA and/or kV according to patient size. COMPARISON: [facility], CT, CT ABDOMEN PELVIS W CON, 05/17/2019, 1:12. FINDINGS: Image quality: Excellent. ABDOMEN: Lung bases: Lung bases are clear. Heart size is normal. Solid organs: Liver is prominent in size. No focal liver lesions are seen. Diffuse fatty liver infiltration is noted. Gallbladder is largely decompressed at the time of this study. Biliary system is non dilated. Pancreas enhances normally. The spleen is enlarged measuring 14.7 cm craniocaudally. No adrenal nodules. Kidneys demonstrate normal size and enhancement, without hydronephrosis. Peritoneum and bowel: In this patient with this given history, scrutiny is given to the appendix. No appendix (either normal or abnormal) is identified on this study. Bowel loops demonstrate normal wall thickness and caliber. No free fluid or air. Nodes and vessels: No retroperitoneal or mesenteric adenopathy by size criteria. Aorta and inferior vena cava are normal in size. Miscellaneous: No ventral hernias. PELVIS: Genitourinary: Bladder wall thickness is normal. The right ovary is not identified. The left ovary demonstrates physiologic cystic changes. Miscellaneous: No inguinal hernias or adenopathy. Bones: No suspicious bony lesions. No vertebral body compression fractures. IMPRESSION: No imaging explanation is found for this patient's presenting history of right lower abdominal pain, acute on chronic. Incidental note is made of: Fatty liver infiltration Hepatosplenomegaly Note: No significant discrepancy from the preliminary report. Dictated by: Santosh Mart M.D. on 05/23/2019 at 8:32 Approved by: Santosh Mart M.D. on 05/23/2019 at 8:35
[2019-05-23] MEDS: ONDANSETRON 4 MG/2 ML INJ IV (01:17)
[2019-05-23] MEDS: KETOROLAC 60 MG/2 ML VIAL 30 MG IV (01:17)
[2019-05-23 01:18] VITALS: BP 141/88; PULSE 111; RESP 17; O2SAT 98
[2019-05-23 01:19] LABS: RBC Urine None Seen (0-5/HPF)
[2019-05-23 01:36] LABS: Bacteria Urine Few (2-10); Culture Indicated Urine Specimen Cultured; Squamous Epithelial Cell Urine 1-5 /HPF (0-5/HPF); WBC Urine 0-1/HPF (0-5/HPF)
[2019-05-23 03:12] VITALS: BP 114/67; PULSE 106; RESP 22; O2SAT 99
== END 2019-05-23 03:12 | disposition home or self-care (01) ==
PROVIDERS: Emergency Provider Emergency Medicine; PCP Hospitalist
DX: R10.9 Unspecified abdominal pain (principal)
CPT/HCPCS: 36591; 74177; 80053; 81003; 81015; 81025; 83690; 85025; 85610; 85730; 87086; 96361; 96374; 96375; 99283; 99285; J1885; J2405; Q9967

== ENCOUNTER 2019-06-08 06:23 | Day surgery (SDC) | payer OTHER, MEDICAID, SELFPAY ==
[2019-06-08] VITALS (17 sets, daily range): BP systolic 80–126; BP diastolic 43–85; PULSE 86–114; RESP 10–30; TEMP 36.1–36.7; O2SAT 90–98
--- NOTE | 2019-06-08 07:23 | PM.PREOP ---
Pre-operative Note Interval Note History & Physical reviewed/Exam performed by Physician: Yes Changes to H&P: No ASA Class (for procedural sedation): II
[2019-06-08] MEDS: SODIUM CHLORIDE 0.9% 1,000 ML 200 ML IV ×2 (07:45→08:47)
--- NOTE | 2019-06-08 07:45 | PM.OP.ENDO ---
Operative Date/Time/Diagnoses Date of procedure: 06/08/19 Time of procedure: 08:13 Pre-op diagnosis: blood per rectum Post-op diagnosis: same Procedure & Clinicians Study performed: colonoscopy Same procedure as scheduled: Yes Indications: 24-year-old female with blood per rectum presents for a diagnostic colonoscopy. Surgeon: Wayne Fierro Procedure Notes SCOAP/Timeout: Performed Procedure in detail: A digital rectal exam was performed that was negative for internal masses. Small external hemorrhoids present. This scope was inserted into the rectum and advanced through the colon. The ileocecal valve was reached. Attempt was made to intubate the terminal ileum but after multiple attempts I was unable to do so successfully. The scope was then carefully withdrawn. The quality of the prep was excellent. The colon was negative for masses negative for bleeding negative for diverticulosis negative for polyps. The scope was retroflexed within the rectum and in demonstrated no internal hemorrhoids. Scope was then carefully withdrawn. Patient tolerated the procedure well. Scope withdrawal time: 6 Sedation minutes: 22 Specimen(s): none sent Complications: none Impression: Normal colonoscopy Post-procedure Recommendations: High fiber diet and Other recommendation (will refer to GI if continued abdominal pain and blood per rectum) Disposition: same day surgery
[2019-06-08] MEDS: ONDANSETRON 4 MG/2 ML INJ IV (07:52)
[2019-06-08] MEDS: GLUCAGON,HUMAN RECOMBINANT 1 MG/ML VIAL IV (07:57)
[2019-06-08] MEDS: fentaNYL 250 MCG/5 ML INJ IV (08:01)
[2019-06-08] MEDS: MIDAZOLAM 5 MG/5 ML VIAL IV (08:11)
--- NOTE | 2019-06-08 08:31 | SUR.PHASEI ---
Arrived in PACU sleeping, aroused easily to voice, denies pain/nausea 0815 Dr. Fierro here, spoke with patient, told her that she had a normal colon and would refer her to a GI dr for follow-up. Pt returned to sleep. HOB elevated slightly.
--- NOTE | 2019-06-08 08:39 | SUR.PHASEI ---
Pt. states that that she is normally tachy when in this type of setting and that it is related to anxiety. She is calm and pleased that the procedure went well. Denies pain, nausea, light-headedness. Juice given.
--- NOTE | 2019-06-08 08:56 | SUR.PHASEI ---
copy of note on VS -Desats, questioned patient regarding sleep apnea, denies snoring, states that people tell her that she makes more of a moaning type sound. Observed patient, noticed brief periods of apnea. Discussed following up with her primary doctor. Pt. has since desat to 82% and rebounds to upper 90's. Dozing intermittently, arouses easily to voice.
--- NOTE | 2019-06-08 09:12 | SUR.PHASEI ---
Pt. sitting up without bed/back support; denies pain or light-headedness. Tolerated juice well. Relaxed.
--- NOTE | 2019-06-08 09:25 | SUR.PHASEII ---
Pt to [facility], friend called to bedside. Sitting up, comfortable, more fluids given. Will continue to monitor. Patient on continuous pulse oximeter, RA sat 95%; skin warm and dry, resp unlabored.
--- NOTE | 2019-06-08 09:52 | SUR.PHASEII ---
0945 Pt stable, has not desatted in [facility], 96% RA; denies s/s of hypotension, states that she feels great. Will consult surgeon regarding discharge.
--- NOTE | 2019-06-08 19:27 | SUR.PHASEII ---
[address] Fierro, told him of patients BP primarily in the 80's and tendency to desat, but has maintained sat in the mid-upper 90s in [facility]. Pt. denies pain, light-headedness/dizziness. approved discharge and stated that she had quite a bit of vomiting prior to admission. IV dc'd.
== END 2019-06-08 10:30 | disposition home or self-care (01) ==
PROVIDERS: PCP Hospitalist; Visit Provider Surgery
PROC: 0DJD8ZZ Inspection of Lower Intestinal Tract, Via Natural or Artificial Opening Endoscopic (ICD-10-PCS; CPT 45378; principal; 2019-06-08 07:45)
DX: K62.5 Hemorrhage of anus and rectum (principal); K64.4 Residual hemorrhoidal skin tags
CPT/HCPCS: 45378; 99152; J1610; J2250; J2405; J3010

== ENCOUNTER 2020-08-20 16:10 | Emergency (ER) | payer OTHER, MEDICAID, SELFPAY ==
[2020-08-20 16:17] VITALS: BP 144/90; PULSE 112; RESP 18; TEMP 36.9; O2SAT 97; BMI 40.2
[2020-08-20 16:39] VITALS: PULSE 106; RESP 19; O2SAT 97
[2020-08-20] MEDS: SODIUM CHLORIDE 0.9% 1,000 ML 1000 ML IV ×2 (16:55→17:53)
[2020-08-20] MEDS: ONDANSETRON 4 MG/2 ML INJ IV (16:55)
[2020-08-20 17:00] VITALS: BP 120/70; PULSE 98; RESP 18; O2SAT 96
[2020-08-20 17:03] LABS: Add Manual Diff / Slide Review NO; Basophils Absolute Auto 0 /uL (0-100); Basophils Percent Auto 0.4 % (0-2); Eosinophils Absolute Auto 200 /uL (0-450); Eosinophils Percent Auto 1.8 % (2-4); Hematocrit 42.5 % (36-46); Hemoglobin 14.5 g/dL (12.0-16.0); Lymphocytes Absolute Auto 2700 /uL (1100-4500); Lymphocytes Percent Auto 25.6 % (25-40); Mean Corpuscular HGB Conc 34.1 % (30-36); Mean Corpuscular Hemoglobin 27.1 PG (26-34); Mean Corpuscular Volume 79.4 fL (80-100); Monocytes Absolute Auto 800 /uL (0-900); Monocytes Percent Auto 7.8 % (3-14); Neutrophils Absolute Auto 6700 /uL (1500-7000); Neutrophils Percent Auto 64.4 % (50-75); Platelet Count 286 X10^3/uL (150-400); Red Blood Cell Count 5.36 X10^6/uL (4.0-5.2); Red Cell Distribution Width 13.9 % (11.6-14.8); White Blood Cell Count 10.5 X10^3/uL (4.5-11.0)
[2020-08-20 17:16] LABS: Alanine Aminotransferase 72 IU/L (<35); Albumin 4.4 g/dL (3.5-5.0); Albumin Globulin Ratio 1.1 (1.0-2.8); Alkaline Phosphatase 93 U/L (38-126); Aspartate Aminotransferase 121 IU/L (14-36); BUN Creatinine Ratio 17.9 (6-22); Bilirubin Total 0.4 mg/dL (0.2-1.3); Blood Urea Nitrogen 7 mg/dL (7-17); Calcium 9.1 mg/dL (8.4-10.2); Carbon Dioxide 27 mmol/L (22-32); Chloride 102 mmol/L (98-107); Estimated Glomerular Filt Rate > 60.0 mL/min (>60); Globulin 3.9 g/dL (1.7-4.1); Glucose 229 mg/dL (70-100); HEMOLYSIS < 15 (0-50); Lipase 46 U/L (23-300); Potassium 3.6 mmol/L (3.4-5.1); Sodium 137 mmol/L (137-145); Total Protein 8.3 g/dL (6.3-8.2)
[2020-08-20 17:30] VITALS: BP 120/68; PULSE 98; O2SAT 98
[2020-08-20 17:32] LABS: Magnesium 1.8 mg/dL (1.6-2.3)
[2020-08-20 17:47] LABS: COVID19 -Nasal RAPID Negative (Negative)
[2020-08-20 18:00] VITALS: BP 133/79; PULSE 100; RESP 18; O2SAT 97
--- NOTE | 2020-08-20 18:00 | ED.NAVMDI ---
HPI - Nausea/Vomiting/Diarrhea <MARKUS Cantu - Last Filed: 08/20/20 19:16> General Chief complaint: Nausea/Vomiting/Diarrhea Stated complaint: nausea, vomiting, diarrhea since Sat. Time Seen by Provider: 08/20/20 16:14 Source: patient and family Mode of arrival: Ambulatory Limitations: no limitations History of Present Illness HPI Narrative: The patient is a 25-year-old female nonsmoker presents with her mother with a history of PCOS who presents with a chief complaint of nausea vomiting and diarrhea off and on since Saturday. She states this started shortly after she had some sandwich from [employer], though her daughter also ate sandwich from [employer] and did not get ill. She states that she had vomiting and diarrhea all day on , felt better on Saturday, and then today developed loose watery stools again. No recent antibiotic use denies any fevers muscle aches or chills. Denies any abdominal pain. Denies any cough, congestion, shortness of breath. Denies any dysuria urgency or frequency. Related Data Home Medications Medication Instructions Recorded Confirmed naproxen 500 mg tablet 500 mg PO BID PRN 01/15/20 04/08/20 Previous Rx's Medication Instructions Recorded norelgestromin 150 mcg-e.estradiol 1 patch TRANSDERMAL QWEEK #6 each 04/08/20 35 mcg/24 hr weekly transderm patch ondansetron 4 mg PO Q6H PRN #20 tab 08/20/20 Allergies Allergy/AdvReac Type Severity Reaction Status Date / Time propofol Allergy Severe Difficulty Verified 06/08/19 07:51 Breathing Review of Systems <MARKUS Cantu - Last Filed: 08/20/20 19:16> Review of Systems Narrative: GENERAL: Denies chills, fatigue, malaise, fever, sweats. HEENT: Denies sinus pain, ear pain, sore throat, difficulty swallowing, dizziness. RESPIRATORY: Denies dyspnea, cough, wheezing, hemoptysis, sputum. CARDIOVASCULAR: Denies chest pain, palpitations, orthopnea, edema, GASTROINTESTINAL: See HPI : Denies dysuria, frequency, incontinence, hematuria, urinary retention. MUSCULOSKELETAL: denies weakness, joint pain, or bony pain SKIN: Denies rash, skin lesions, or other NEUROLOGIC: Denies weakness, headache, numbness, change in speech, confusion, seizures, incoordination. PSYCHIATRIC: No concerning psychosocial issues. 12 point review of systems is negative except for those stated above Patient History <MARKUS Cantu - Last Filed: 08/20/20 19:16> Medical History Blood per rectum Elevated fasting blood sugar Hemorrhoids Miscarriage within last 12 months PCOS (polycystic ovarian syndrome) Pelvic pain Preventative health care Sciatic nerve pain Strep pharyngitis Surveillance of oral contraception, patch, or vaginal ring Tonsillitis Unwanted fertility Uses hormonal contraceptive patch as primary control method Surgical History History of Hx of cholecystectomy Hx of dilation and curettage Family History Grandmother Hypertension Cancer Stroke Grandfather Diabetes mellitus Stroke Social History household members: family Smoking Status: Never smoker alcohol intake: current substance use type: does not use Smoking Status: Never smoker alcohol intake frequency: 0-2 drinks per day Substance Use Type: does not use Exam <MARKUS Cantu - Last Filed: 08/20/20 19:16> Narrative Exam Narrative: GENERAL: This is a well-nourished, well-developed patient, in no acute distress HEAD: Atraumatic. Normocephalic. No temporal or scalp tenderness. EYES: Pupils equal round and reactive. Extraocular motions intact. No scleral icterus. No injection or drainage. ENT: Nose without bleeding, purulent drainage or septal hematoma. Throat without erythema, tonsillar hypertrophy or exudate. Uvula midline. Airway patent. Dry mucous membranes noted. NECK: Trachea midline. No JVD or lymphadenopathy. Supple, nontender, no meningeal signs. CARDIOVASCULAR: Regular rate and rhythm respiratory effort. RESPIRATORY: Clear to auscultation. Breath sounds equal bilaterally. No wheezes, rales, or rhonchi. Cough. Accessory muscle use. GASTROINTESTINAL: Abdomen soft, non-tender, nondistended. No hepato-splenomegaly, or palpable masses. No guarding. Active bowel sounds all 4 quadrants. Soft and non tender to palpation with no guarding. EXTREMITIES: No clubbing, cyanosis, or edema. No joint tenderness, effusion, or edema noted. BACK: Nontender without deformity or crepitance. No flank tenderness. NEURO: AOx3. SKIN: No rash or erythema on visible skin. Initial Vital Signs Initial Vital Signs: Vital Signs Temperature 98.4 F 08/20/20 16:17 Pulse Rate 112 H 08/20/20 16:17 Respiratory Rate 18 08/20/20 16:17 Blood Pressure 144/90 H 08/20/20 16:17 Pulse Oximetry 97 08/20/20 16:17 <Aaliyah Velasco DO - Last Filed: 08/21/20 07:41> Initial Vital Signs Initial Vital Signs: Vital Signs Temperature 98.4 F 08/20/20 16:17 Pulse Rate 112 H 08/20/20 16:17 Respiratory Rate 18 08/20/20 16:17 Blood Pressure 144/90 H 08/20/20 16:17 Pulse Oximetry 97 08/20/20 16:17 Scores <MARKUS Cantu - Last Filed: 08/20/20 19:16> GCS Johny coma scale eye opening: Spontaneous Johny coma scale verbal response: Orientated [place] coma scale motor response: Obey commands [place] coma scale total score: 15 Course <MARKUS Cantu - Last Filed: 08/20/20 19:16> Orders Ordered: Discontinued Medications Sodium Chloride (Normal Saline 0.9%) 1,000 mls @ 1,000 mls/hr IV BOLUS ONE Stop: 08/20/20 17:45 Last Infusion: 08/20/20 17:54 Dose: 0 mls/hr Documented by: Admin: 08/20/20 16:55 Dose: 1,000 mls/hr Documented by: OLAMIDE Sodium Chloride (Normal Saline 0.9%) 1,000 mls @ 1,000 mls/hr IV BOLUS ONE Stop: 08/20/20 18:50 Last Infusion: 08/20/20 18:37 Dose: 0 mls/hr Documented by: Admin: 08/20/20 17:53 Dose: 1,000 mls/hr Documented by: OLAMIDE Ondansetron HCl (Ondansetron 4 Mg/2 Ml Inj) 4 mg IV NOW ONE Stop: 08/20/20 16:47 Last Admin: 08/20/20 16:55 Dose: 4 mg Documented by: OLAMIDE Ondansetron HCl (Ondansetron 4 Mg Odt Prepack) 1 bottle MISC SEEINSTR ONE Stop: 08/20/20 19:08 Last Admin: 08/20/20 19:17 Dose: 1 bottle Documented by: OLAMIDE Vital Signs Vital signs: Vital Signs - 8 hr 08/20/20 16:17 08/20/20 16:39 08/20/20 17:00 Temperature 98.4 F Pulse Rate 112 H 106 H 98 H Respiratory Rate 18 19 18 Blood Pressure 144/90 H 120/70 Pulse Oximetry 97 97 96 08/20/20 17:30 08/20/20 18:00 Temperature Pulse Rate 98 H 100 H Respiratory Rate 18 Blood Pressure 120/68 133/79 Pulse Oximetry 98 97 <Aaliyah Velasco DO - Last Filed: 08/21/20 07:41> Orders Ordered: Discontinued Medications Sodium Chloride (Normal Saline 0.9%) 1,000 mls @ 1,000 mls/hr IV BOLUS ONE Stop: 08/20/20 17:45 Last Infusion: 08/20/20 17:54 Dose: 0 mls/hr Documented by: Admin: 08/20/20 16:55 Dose: 1,000 mls/hr Documented by: OLAMIDE Sodium Chloride (Normal Saline 0.9%) 1,000 mls @ 1,000 mls/hr IV BOLUS ONE Stop: 08/20/20 18:50 Last Infusion: 08/20/20 18:37 Dose: 0 mls/hr Documented by: Admin: 08/20/20 17:53 Dose: 1,000 mls/hr Documented by: OLAMIDE Ondansetron HCl (Ondansetron 4 Mg/2 Ml Inj) 4 mg IV NOW ONE Stop: 08/20/20 16:47 Last Admin: 08/20/20 16:55 Dose: 4 mg Documented by: OLAMIDE Ondansetron HCl (Ondansetron 4 Mg Odt Prepack) 1 bottle MISC SEEINSTR ONE Stop: 08/20/20 19:08 Last Admin: 08/20/20 19:17 Dose: 1 bottle Documented by: OLAMIDE Vital Signs Vital signs: Vital Signs - 8 hr 08/20/20 16:17 08/20/20 16:39 08/20/20 17:00 Temperature 98.4 F Pulse Rate 112 H 106 H 98 H Respiratory Rate 18 19 18 Blood Pressure 144/90 H 120/70 Pulse Oximetry 97 97 96 08/20/20 17:30 08/20/20 18:00 Temperature Pulse Rate 98 H 100 H Respiratory Rate 18 Blood Pressure 120/68 133/79 Pulse Oximetry 98 97 MDM - Nausea/Vomiting/Diarrhea <NUNU Cantu- - Last Filed: 08/20/20 19:16> Lab Data Attestation: I reviewed the patient's lab results. Result diagrams: 08/20/20 16:25 08/20/20 16:25 Labs: Lab Results 08/20/20 08/20/20 08/20/20 Range/Units 16:25 16:25 16:25 WBC 10.5 (4.5-11.0) X10^3/uL RBC 5.36 H (4.0-5.2) X10^6/uL Hgb 14.5 (12.0-16.0) g/dL Hct 42.5 (36-46) % MCV 79.4 L (80-100) fL MCH 27.1 (26-34) PG MCHC 34.1 (30-36) % RDW 13.9 (11.6-14.8) % Plt Count 286 (150-400) X10^3/uL Neut % (Auto) 64.4 (50-75) % Lymph % (Auto) 25.6 (25-40) % [place] % (Auto) 7.8 (3-14) % Eos % (Auto) 1.8 L (2-4) % Baso % (Auto) 0.4 (0-2) % Neut # (Auto) 6700 (9135-0223) /uL Lymph # (Auto) 2700 (9773-4660) /uL [place] # (Auto) 800 (0-900) /uL Eos # (Auto) 200 (0-450) /uL Baso # (Auto) 0 (0-100) /uL Sodium 137 (137-145) mmol/L Potassium 3.6 (3.4-5.1) mmol/L Chloride 102 (98-107) mmol/L Carbon Dioxide 27 (22-32) mmol/L BUN 7 (7-17) mg/dL Creatinine 0.39 L (0.52-1.04) mg/dL Estimated GFR > 60.0 (>60) mL/min BUN/Creatinine Ratio 17.9 (6-22) Glucose 229 H (70-100) mg/dL Calcium 9.1 (8.4-10.2) mg/dL Magnesium 1.8 (1.6-2.3) mg/dL Total Bilirubin 0.4 (0.2-1.3) mg/dL AST 121 H (14-36) IU/L ALT 72 H (<35) IU/L Alkaline Phosphatase 93 (38-126) U/L Total Protein 8.3 H (6.3-8.2) g/dL Albumin 4.4 (3.5-5.0) g/dL Globulin 3.9 (1.7-4.1) g/dL Albumin/Globulin Ratio 1.1 (1.0-2.8) Lipase 46 (23-300) U/L COVID-19 PCR (Negative) 08/20/20 Range/Units 16:50 WBC (4.5-11.0) X10^3/uL RBC (4.0-5.2) X10^6/uL Hgb (12.0-16.0) g/dL Hct (36-46) % MCV (80-100) fL MCH (26-34) PG MCHC (30-36) % RDW (11.6-14.8) % Plt Count (150-400) X10^3/uL Neut % (Auto) (50-75) % Lymph % (Auto) (25-40) % [place] % (Auto) (3-14) % Eos % (Auto) (2-4) % Baso % (Auto) (0-2) % Neut # (Auto) (2686-1448) /uL Lymph # (Auto) (8054-8855) /uL [place] # (Auto) (0-900) /uL Eos # (Auto) (0-450) /uL Baso # (Auto) (0-100) /uL Sodium (137-145) mmol/L Potassium (3.4-5.1) mmol/L Chloride (98-107) mmol/L Carbon Dioxide (22-32) mmol/L BUN (7-17) mg/dL Creatinine (0.52-1.04) mg/dL Estimated GFR (>60) mL/min BUN/Creatinine Ratio (6-22) Glucose (70-100) mg/dL Calcium (8.4-10.2) mg/dL Magnesium (1.6-2.3) mg/dL Total Bilirubin (0.2-1.3) mg/dL AST (14-36) IU/L ALT (<35) IU/L Alkaline Phosphatase (38-126) U/L Total Protein (6.3-8.2) g/dL Albumin (3.5-5.0) g/dL Globulin (1.7-4.1) g/dL Albumin/Globulin Ratio (1.0-2.8) Lipase (23-300) U/L COVID-19 PCR Negative (Negative) Point of Care Testing Test Results Negative Urine Dip Bedside Urine Glucose Negative Bedside Urine Bilirubin - Negative Bedside Urine Ketone - Negative Urine Specific [place] 1.020 Bedside Urine Occult Blood - Negative Bedside Urine pH 6.0 Bedside Urine Protein +/- 15 Bedside Urine Urobilinogen - Negative Bedside Urine Nitrite - Negative Bedside Urine Leukocytes - Negative Esterase MDM Narrative Medical decision making narrative: The patient is a 25-year-old female who presents with a chief complaint of nausea and diarrhea. She was vomiting a few days ago, but is no longer. She is hemodynamically stable throughout her stay in the ER, labs are grossly within normal limits with no leukocytosis. She denies any abdominal pain and has no pain to palpation. She feels much improved after Zofran and fluids. Urinalysis shows no signs of infection. The patient does complain of hemorrhoid pain, but adamantly declines Hemoccult or rectal exam. She was able to be stable reviewed removal was throughout her stay in the ER, she has no episodes of vomiting or diarrhea during her 3 hour emergency department stay, so we were unable to obtain a GI panel. Will hold off on imaging as she feels much improved, has no leukocytosis, no fever, no abdominal pain whatsoever. Discussed at length the importance of follow-up with primary care provider in the next few days. Patient has no questions or concerns upon discharge and states understanding of return precautions as well as follow-up care. <Aaliyah Velasco, DO - Last Filed: 08/21/20 07:41> Lab Data Labs: Lab Results 08/20/20 08/20/20 08/20/20 Range/Units 16:25 16:25 16:25 WBC 10.5 (4.5-11.0) X10^3/uL RBC 5.36 H (4.0-5.2) X10^6/uL Hgb 14.5 (12.0-16.0) g/dL Hct 42.5 (36-46) % MCV 79.4 L (80-100) fL MCH 27.1 (26-34) PG MCHC 34.1 (30-36) % RDW 13.9 (11.6-14.8) % Plt Count 286 (150-400) X10^3/uL Neut % (Auto) 64.4 (50-75) % Lymph % (Auto) 25.6 (25-40) % [place] % (Auto) 7.8 (3-14) % Eos % (Auto) 1.8 L (2-4) % Baso % (Auto) 0.4 (0-2) % Neut # (Auto) 6700 (5057-7896) /uL Lymph # (Auto) 2700 (7582-8331) /uL [place] # (Auto) 800 (0-900) /uL Eos # (Auto) 200 (0-450) /uL Baso # (Auto) 0 (0-100) /uL Sodium 137 (137-145) mmol/L Potassium 3.6 (3.4-5.1) mmol/L Chloride 102 (98-107) mmol/L Carbon Dioxide 27 (22-32) mmol/L BUN 7 (7-17) mg/dL Creatinine 0.39 L (0.52-1.04) mg/dL Estimated GFR > 60.0 (>60) mL/min BUN/Creatinine Ratio 17.9 (6-22) Glucose 229 H (70-100) mg/dL Calcium 9.1 (8.4-10.2) mg/dL Magnesium 1.8 (1.6-2.3) mg/dL Total Bilirubin 0.4 (0.2-1.3) mg/dL AST 121 H (14-36) IU/L ALT 72 H (<35) IU/L Alkaline Phosphatase 93 (38-126) U/L Total Protein 8.3 H (6.3-8.2) g/dL Albumin 4.4 (3.5-5.0) g/dL Globulin 3.9 (1.7-4.1) g/dL Albumin/Globulin Ratio 1.1 (1.0-2.8) Lipase 46 (23-300) U/L COVID-19 PCR (Negative) 08/20/20 Range/Units 16:50 WBC (4.5-11.0) X10^3/uL RBC (4.0-5.2) X10^6/uL Hgb (12.0-16.0) g/dL Hct (36-46) % MCV (80-100) fL MCH (26-34) PG MCHC (30-36) % RDW (11.6-14.8) % Plt Count (150-400) X10^3/uL Neut % (Auto) (50-75) % Lymph % (Auto) (25-40) % [place] % (Auto) (3-14) % Eos % (Auto) (2-4) % Baso % (Auto) (0-2) % Neut # (Auto) (3518-2861) /uL Lymph # (Auto) (3109-9118) /uL [place] # (Auto) (0-900) /uL Eos # (Auto) (0-450) /uL Baso # (Auto) (0-100) /uL Sodium (137-145) mmol/L Potassium (3.4-5.1) mmol/L Chloride (98-107) mmol/L Carbon Dioxide (22-32) mmol/L BUN (7-17) mg/dL Creatinine (0.52-1.04) mg/dL Estimated GFR (>60) mL/min BUN/Creatinine Ratio (6-22) Glucose (70-100) mg/dL Calcium (8.4-10.2) mg/dL Magnesium (1.6-2.3) mg/dL Total Bilirubin (0.2-1.3) mg/dL AST (14-36) IU/L ALT (<35) IU/L Alkaline Phosphatase (38-126) U/L Total Protein (6.3-8.2) g/dL Albumin (3.5-5.0) g/dL Globulin (1.7-4.1) g/dL Albumin/Globulin Ratio (1.0-2.8) Lipase (23-300) U/L COVID-19 PCR Negative (Negative) Point of Care Testing Test Results Negative Urine Dip Bedside Urine Glucose Negative Bedside Urine Bilirubin - Negative Bedside Urine Ketone - Negative Urine Specific [place] 1.020 Bedside Urine Occult Blood - Negative Bedside Urine pH 6.0 Bedside Urine Protein +/- 15 Bedside Urine Urobilinogen - Negative Bedside Urine Nitrite - Negative Bedside Urine Leukocytes - Negative Esterase Discharge Plan Departure Patient Disposition: Home Clinical Impression: Nausea Diarrhea Qualifiers: Diarrhea type: unspecified type Qualified Code(s): R19.7 - Diarrhea, unspecified Instructions: DI for Diarrhea and Traveler's Diarrhea -- Adult, DI for Nausea -- Adult, DI for Vomiting -- Adult Activity Restrictions/Additional Instructions: Thank you for trusting us with your care today. As discussed, please follow-up with primary care provider in the next few days. We have done lab work which came back well, urinalysis which came back well, and the nausea medicine has worked well. I sent a prescription of nausea medicine to [facility] in [place]. We gave you a take-home pack of ondansetron to get a 3rd tonight since pharmacies are closed. Be aware that this can be constipating. As suggested, please eat a light diet. Please avoid spicy foods, deep fried fatty foods etcetera As discussed, please come back to the ER for acute concerns such as abdominal pain with fever, inability keep down fluids etcetera Prescriptions: New ondansetron 4 mg tablet,disintegrating 4 mg PO Q6H PRN (Reason: nausea and vomiting) Qty: 20 RF: 0 No Action norelgestromin-ethin.estradiol 150-35 mcg/24 hr patch weekly 1 patch transdermal QWEEK Qty: 6 RF: 6 naproxen 500 mg tablet 500 mg PO BID PRNRF: 0 Referrals: Cecy Schneider ARNP [Primary Care Provider] - Stand Alone Forms: Work Release Note <Aaliyah Velasco DO - Last Filed: 08/21/20 07:41> Cosign ED Attending Cosnicholasature Attestation: I was immediately available in the department for consultation. Documentation has been reviewed. I agree with assessment and plan.
[2020-08-20] MEDS: ONDANSETRON 4 MG ODT PREPACK 1 BOTTLE MISC (19:17)
[2020-08-20 19:20] VITALS: BP 126/67; PULSE 94; RESP 18; TEMP 36.9; O2SAT 97
== END 2020-08-20 19:32 | disposition home or self-care (01) ==
PROVIDERS: Emergency Provider Nurse Practitioner Family; PCP Nurse Practitioner
DX: R19.7 Diarrhea, unspecified (principal)
CPT/HCPCS: 36415; 80053; 81003; 81025; 83690; 83735; 85025; 87635; 96361; 96374; 99281; 99284; J2405

== ENCOUNTER → 2020-12-13 09:28 | Outpatient (ROUT) | payer OTHER, MEDICAID, SELFPAY | PROVIDERS: PCP Nurse Practitioner; Visit Provider Specialist | DX: N90.89 Other specified noninflammatory disorders of vulva and perineum (principal) | CPT/HCPCS: 87255 ==

== ENCOUNTER → 2021-04-03 07:56 | Outpatient (CLI) | payer OTHER, MEDICAID, SELFPAY ==
--- NOTE | 2021-04-03 07:57 | DI.US.S_ITS ---
PROCEDURE: US PELVIC COMPLETE INDICATIONS: PAIN TECHNIQUE: Real-time scanning was performed of the pelvic organs, with image documentation. Additional endovaginal scanning was necessary due to incomplete visualization of the adnexal and endometrial structures by transabdominal scanning. COMPARISON: [facility], US, US PELVIC COMPLETE, 01/15/2020, 13:37. FINDINGS: Uterus: Uterus is normal in size at 7.1 x 3.6 x 4.9 cm. The endometrium measures 9.8 mm in combined thickness. Ovaries: The right ovary measures 5.2 x 3.2 x 2.3 centimeters. There are 2 complex cysts, 1 measuring 1.9 x 1.7 x 1.5 centimeters which has a crenated appearance and one measuring 1.7 x 1.3 x 1.5 centimeters with a simple appearance. Normal appearing and number of follicles are seen. The left ovary measures 2.5 x 1.7 x 2.4 centimeters. No solid or cystic mass. Normal appearing and number of follicles are seen. Other: No pathologic free abdominal or pelvic fluid. IMPRESSION: 1. Left ovarian cysts.. 2. No ultrasound evidence of polycystic ovarian disease at this time. Dictated by: Jeremi Lopez M.D. on 04/03/2021 at 17:13 Approved by: Jeremi Lopez M.D. on 04/03/2021 at 17:19
== END ==
PROVIDERS: PCP Nurse Practitioner; Referring Provider Specialist; Visit Provider Specialist
DX: R10.2 Pelvic and perineal pain (principal); N83.291 Other ovarian cyst, right side
CPT/HCPCS: 76830; 76856

== ENCOUNTER → 2021-05-04 13:12 | Outpatient (CLI) | payer OTHER, MEDICAID, SELFPAY ==
[2021-05-05 10:25] LABS: Candida species Negative (Negative); Gardnerella vaginalis Positive (Negative); Trichomoas vaginalis Negative (Negative)
== END ==
PROVIDERS: PCP Nurse Practitioner; Visit Provider Specialist
DX: L29.2 Pruritus vulvae (principal)
CPT/HCPCS: 87480; 87510; 87660

== ENCOUNTER 2021-06-26 20:22 | Emergency (ER) | payer OTHER, MEDICAID, SELFPAY ==
[2021-06-26 20:24] VITALS: BP 148/82; PULSE 112; RESP 18; TEMP 36.6; O2SAT 96
[2021-06-26 21:48] LABS: Bacteria Urine Few (2-10); RBC Urine 0-1/HPF (0-5/HPF); Squamous Epithelial Cell Urine 0-1 /HPF (0-5/HPF); WBC Urine 0-1/HPF (0-5/HPF)
[2021-06-26 21:49] LABS: Culture Indicated Urine Cult Not Indicated
--- NOTE | 2021-06-26 23:10 | ED.FEMALEGU ---
HPI - Female Genitourinary General Chief complaint: Urogenital-Female Stated complaint: LOWER PELVIC PAIN Time Seen by Provider: 06/26/21 23:10 Source: patient Mode of arrival: Ambulatory Limitations: no limitations History of Present Illness HPI Narrative: 26-year-old female comes emergency department complaint of lower pelvic pain. Patient states acute on chronic. She has had chronic or pelvic discomfort. She has had torsion in the past which she went to surgery for but states this does not feel similar at this time. She denies fevers or chills. She has some nausea when her pain was much worse at home. She has not any vomiting. She denies any back or flank pain. She describes at all in the lower pelvic. She denies any frequency dysuria or sense of urgency. She denies any new vaginal bleeding. She has some discharge which she saw Dr. White for and was told she had an infection with the pH was off. And was prescribed something for it. She denies any black or bloody stools or diarrhea. She has had some mild constipation but having bowel movements. She denies other abdominal surgeries besides one for ovarian torsion. She denies any other daily medications. She did recently go back on her transdermal control patch. She had stopped this because she thought it might affect her pelvic pain. She is accompanied by her mother. She denies tobacco, your to 2 drinks daily, no illicit. She did try dose of ibuprofen earlier today. Related Data Home Medications Medication Instructions Recorded Confirmed naproxen 500 mg tablet 500 mg PO BID PRN 01/15/20 04/08/20 Previous Rx's Medication Instructions Recorded norelgestromin 150 mcg-e.estradiol 1 patch TRANSDERMAL QWEEK #6 each 04/08/20 35 mcg/24 hr weekly transderm patch fluconazole 150 mg tablet 150 mg PO Q3D #2 tab 12/09/20 valacyclovir 1 gram tablet 1,000 mg PO BID #20 tab 12/15/20 terconazole 0.8 % vaginal cream 1 appful VAGINAL BEDTIME 3 Days 03/14/21 #20 g clobetasol 0.05 % topical gel 1 applic TOPICAL BID #15 g 05/04/21 Allergies Allergy/AdvReac Type Severity Reaction Status Date / Time propofol Allergy Severe Difficulty Verified 06/08/19 07:51 Breathing Review of Systems Review of Systems ROS Unobtainable: All systems reviewed & are unremarkable except as noted in HPI and below Patient History Medical History Blood per rectum Elevated fasting blood sugar Hemorrhoids Infection due to yeast Miscarriage within last 12 months PCOS (polycystic ovarian syndrome) Pelvic pain Preventative health care Sciatic nerve pain Strep pharyngitis Surveillance of oral contraception, patch, or vaginal ring Tonsillitis Unwanted fertility Uses hormonal contraceptive patch as primary control method Surgical History History of Hx of cholecystectomy Hx of dilation and curettage Family History Grandmother Hypertension Cancer Stroke Grandfather Diabetes mellitus Stroke alcohol intake frequency: 0-2 drinks per day Substance Use Type: does not use Exam Narrative Exam Narrative: GENERAL: Alert and oriented x three, obese female in [id number] distress. HEENT: Head normocephalic, atraumatic, EOMI, pupils reactive, face symmetric, moist mucous membranes NECK: Supple, full range of motion CARDIOVASCULAR: Regular rate and rhythm without murmurs, rubs or gallops. RESPIRATORY: Breath sounds equal bilaterally, no wheezes rales or rhonchi. ABDOMEN: Soft, generalized lower bilateral quadrant tenderness. Normoactive bowel sounds all 4 quadrants. No guarding or rebound, rigidity, no mass, nondistended. : No CVA tenderness. Patient politely defers pelvic exam. EXTREMITIES: Normal range of motion, no clubbing or edema. Neurovascularly intact NEUROLOGICAL: Cranial nerves II through XII grossly intact. Moving all extremities SKIN: Warm, dry, no petechiae, no rashes or lesions. Initial Vital Signs Initial Vital Signs: Vital Signs Temperature 97.9 F 06/26/21 20:24 Pulse Rate 112 H 06/26/21 20:24 Respiratory Rate 18 06/26/21 20:24 Blood Pressure 148/82 H 06/26/21 20:24 Pulse Oximetry 96 06/26/21 20:24 Course Orders Ordered: ED Orders 06/26/21 21:00 Urine Microscopic Stat 06/26/21 23:18 pelvic complete Stat Complete Blood Count AUTO DIFF Stat Comprehensive Metabolic Panel Stat Lipase Stat Discontinued Medications Ketorolac Tromethamine (Ketorolac 30 Mg/Ml Vial) 30 mg IV NOW ONE Stop: 06/26/21 23:19 Last Admin: 06/27/21 00:25 Dose: 30 mg Documented by: VICTORIA Vital Signs Vital signs: Vital Signs - 8 hr 06/27/21 01:31 Pulse Rate 91 H Respiratory Rate 17 Blood Pressure 118/69 Pulse Oximetry 97 MDM - Female Genitourinary Lab Data Result diagrams: 06/27/21 00:20 06/27/21 00:20 Labs: Lab Results 06/26/21 06/27/21 06/27/21 Range/Units 21:00 00:20 00:20 WBC 14.1 H (4.5-11.0) X10^3/uL RBC 5.22 H (4.0-5.2) X10^6/uL Hgb 13.7 (12.0-16.0) g/dL Hct 41.5 (36-46) % MCV 79.5 L (80-100) fL MCH 26.3 (26-34) PG MCHC 33.1 (30-36) % RDW 13.4 (11.6-14.8) % Plt Count 347 (150-400) X10^3/uL Neut % (Auto) 64.8 (50-75) % Lymph % (Auto) 27.1 (25-40) % [place] % (Auto) 5.6 (3-14) % Eos % (Auto) 1.5 L (2-4) % Baso % (Auto) 1.0 (0-2) % Neut # (Auto) 9200 H (5907-0071) /uL Lymph # (Auto) 3800 (7922-4851) /uL [place] # (Auto) 800 (0-900) /uL Eos # (Auto) 200 (0-450) /uL Baso # (Auto) 100 (0-100) /uL Sodium 139 (137-145) mmol/L Potassium 4.0 (3.4-5.1) mmol/L Chloride 101 (98-107) mmol/L Carbon Dioxide 29 (22-32) mmol/L BUN 9 (7-17) mg/dL Creatinine 0.38 L (0.52-1.04) mg/dL Estimated GFR > 60.0 (>60) mL/min BUN/Creatinine Ratio 23.7 H (6-22) Glucose 318 H (70-100) mg/dL Calcium 9.8 (8.4-10.2) mg/dL Total Bilirubin 0.3 (0.2-1.3) mg/dL AST 18 (14-36) IU/L ALT 18 (<35) IU/L Alkaline Phosphatase 83 (38-126) U/L Total Protein 8.2 (6.3-8.2) g/dL Albumin 4.4 (3.5-5.0) g/dL Globulin 3.8 (1.7-4.1) g/dL Albumin/Globulin Ratio 1.2 (1.0-2.8) Lipase 44 (23-300) U/L Urine RBC 0-1/hpf (0-5/HPF) Urine WBC 0-1/hpf (0-5/HPF) Ur Squamous Epith Cells 0-1 /hpf (0-5/HPF) Urine Bacteria Few (2-10) H (None) Ur Culture Indicated? Cult not indicated Point of Care Testing Test Results Negative Urine Dip Bedside Urine Glucose 500 mg/dl Bedside Urine Bilirubin - Negative Bedside Urine Ketone - Negative Urine Specific [place] 1.020 Bedside Urine Occult Blood - Negative Bedside Urine pH 6 Bedside Urine Protein - Negative Bedside Urine Urobilinogen - Negative Bedside Urine Nitrite - Negative Bedside Urine Leukocytes - Negative Esterase Imaging Data US - MANAGER OF WAREHOUSE: Radiologist's Impression: [place] [address] Ultrasound Report Signed Patient: Rosalino Dinh MR#: [id number] : 1995 Acct:[id number] Age/Sex: 26 / F Date of Service: 06/26/21 Loc: ED Accession Number: [id number] ?? Procedure: US pelvic complete Ordering Provider: Paty Almendarez D.O. PROCEDURE:? US PELVIC COMPLETE ? INDICATIONS:? PAIN ? TECHNIQUE:? Real-time scanning was performed of the pelvic organs, with image documentation.? Additional endovaginal scanning was necessary due to incomplete visualization of the adnexal and endometrial structures by transabdominal scanning.? ? COMPARISON:? [facility], , US PELVIC COMPLETE, 01/15/2020, 13:37.? [facility], , US PELVIC COMPLETE, 04/03/2021, 8:33. ? FINDINGS:? ?? Uterus:? Uterus is normal in size at 7.6 x 5.6 x 4.1 cm.? No fibroids seen.? The endometrium measures 13 mm in combined thickness.? Heterogeneous hypoechoic nabothian cyst.? ? Ovaries:? Within normal limits.? Blood flow seen in both ovaries. Right ovary measures 4 x 3.8 x 3.4 cm.? Simple right ovarian cyst measuring 3.2 cm. Left ovary measures 3.7 x 3.5 x 1.9 cm.? Crenulated left ovarian cyst measuring 1.5 cm. ? Other: ? No pathologic free abdominal or pelvic fluid. ? IMPRESSION:? ? 1. Sonographic appearance of the ovaries is within normal limits.? Small crenulated left ovarian cyst likely a corpus luteum or collapsing hemorrhagic cyst.? Simple right ovarian cyst. ? 2. Endometrium measures 1.3 cm. ? 3. Mildly complex nabothian cyst is unchanged in the short-term interval. ? ? Dictated by: Victor Hugo Bonner M.D. on 06/27/2021 at 0:17 ? ? Approved by: Victor Hugo Bonner M.D. on 06/27/2021 at 0:23?? MDM Narrative Medical decision making narrative: This is a 26-year-old female with acute on chronic pelvic pain. Patient states she was significantly more comfortable prior to arrival. She still quite uncomfortable. Labs show mild leukocytosis, she does have elevated glucose with otherwise normal belly labs. Urine is negative. poc urine is + for glucose, no ketones. Anion gap is 9 with bicarb of 29. Patient is hyperglycemic but no signs of DKA. Pelvic ultrasound shows ovarian cyst and a cranially did ovarian cyst which could potentially be hemorrhagic cyst. We discussed is a potential for her pain. We also discussed a pelvic exam would be appropriate she very politely defers at this time and would prefer to follow-up. Patient feels much better after Toradol. Return precautions were discussed. Patient feels comfortable with this plan. Discharge Plan Departure Patient Disposition: Home Clinical Impression: Ovarian cyst, Pelvic pain Instructions: DI for Pelvic Pain Activity Restrictions/Additional Instructions: Your imaging today does show an ovarian cyst on the right that is 3.2cm and small cyst or possible collapsing hemorrhagic cyst on the left. Your imaging otherwise does not show any other major changes. Your labs show mildly elevated white count and glucose. You may continue to take ibuprofen up to 800 mg every 8 hours and/or Tylenol up to a 1000 mg every 8 hours. As discussed a repeated pelvic exam would be appropriate if you are not having any improvement in her pelvic pain. Please return for fevers, lightheadedness or passing out, rapidly worsening abdominal pain, persistent vomiting, black or bloody stools, pain that is reminiscent of your prior ovarian torsion or other new or concerning symptoms. Prescriptions: No Action valacyclovir 1 gram tablet 1,000 mg PO BID Qty: 20 RF: 0 terconazole 0.8 % cream 1 appful vaginal BEDTIME 3 Days Qty: 20 RF: 1 norelgestromin-ethin.estradiol 150-35 mcg/24 hr patch weekly 1 patch transdermal QWEEK Qty: 6 RF: 6 fluconazole 150 mg tablet 150 mg PO Q3D Qty: 2 RF: 1 clobetasol 0.05 % gel 1 applic topical BID Qty: 15 RF: 1 naproxen 500 mg tablet 500 mg PO BID PRNRF: 0 Referrals: Cecy Schneider ARNP [Primary Care Provider] -
--- NOTE | 2021-06-26 23:18 | DI.US.S_ITS ---
PROCEDURE: US PELVIC COMPLETE INDICATIONS: PAIN TECHNIQUE: Real-time scanning was performed of the pelvic organs, with image documentation. Additional endovaginal scanning was necessary due to incomplete visualization of the adnexal and endometrial structures by transabdominal scanning. COMPARISON: [facility], US, US PELVIC COMPLETE, 01/15/2020, 13:37. [facility], US, US PELVIC COMPLETE, 04/03/2021, 8:33. FINDINGS: Uterus: Uterus is normal in size at 7.6 x 5.6 x 4.1 cm. No fibroids seen. The endometrium measures 13 mm in combined thickness. Heterogeneous hypoechoic nabothian cyst. Ovaries: Within normal limits. Blood flow seen in both ovaries. Right ovary measures 4 x 3.8 x 3.4 cm. Simple right ovarian cyst measuring 3.2 cm. Left ovary measures 3.7 x 3.5 x 1.9 cm. Crenulated left ovarian cyst measuring 1.5 cm. Other: No pathologic free abdominal or pelvic fluid. IMPRESSION: 1. Sonographic appearance of the ovaries is within normal limits. Small crenulated left ovarian cyst likely a corpus luteum or collapsing hemorrhagic cyst. Simple right ovarian cyst. 2. Endometrium measures 1.3 cm. 3. Mildly complex nabothian cyst is unchanged in the short-term interval. Dictated by: Victor Hugo Bonner M.D. on 06/27/2021 at 0:17 Approved by: Victor Hugo Bonner M.D. on 06/27/2021 at 0:23
[2021-06-27] MEDS: KETOROLAC 30 MG/ML VIAL IV (00:25)
[2021-06-27 00:30] LABS: Add Manual Diff / Slide Review NO; Basophils Absolute Auto 100 /uL (0-100); Eosinophils Absolute Auto 200 /uL (0-450); Eosinophils Percent Auto 1.5 % (2-4); Hematocrit 41.5 % (36-46); Hemoglobin 13.7 g/dL (12.0-16.0); Lymphocytes Absolute Auto 3800 /uL (1100-4500); Lymphocytes Percent Auto 27.1 % (25-40); Mean Corpuscular HGB Conc 33.1 % (30-36); Mean Corpuscular Hemoglobin 26.3 PG (26-34); Mean Corpuscular Volume 79.5 fL (80-100); Monocytes Absolute Auto 800 /uL (0-900); Monocytes Percent Auto 5.6 % (3-14); Neutrophils Absolute Auto 9200 /uL (1500-7000); Neutrophils Percent Auto 64.8 % (50-75); Platelet Count 347 X10^3/uL (150-400); Red Blood Cell Count 5.22 X10^6/uL (4.0-5.2); Red Cell Distribution Width 13.4 % (11.6-14.8); White Blood Cell Count 14.1 X10^3/uL (4.5-11.0)
[2021-06-27 00:39] LABS: Alanine Aminotransferase 18 IU/L (<35); Albumin 4.4 g/dL (3.5-5.0); Albumin Globulin Ratio 1.2 (1.0-2.8); Alkaline Phosphatase 83 U/L (38-126); Aspartate Aminotransferase 18 IU/L (14-36); BUN Creatinine Ratio 23.7 (6-22); Bilirubin Total 0.3 mg/dL (0.2-1.3); Blood Urea Nitrogen 9 mg/dL (7-17); Calcium 9.8 mg/dL (8.4-10.2); Carbon Dioxide 29 mmol/L (22-32); Chloride 101 mmol/L (98-107); Estimated Glomerular Filt Rate > 60.0 mL/min (>60); Globulin 3.8 g/dL (1.7-4.1); Glucose 318 mg/dL (70-100); HEMOLYSIS 16 (0-50); Lipase 44 U/L (23-300); Sodium 139 mmol/L (137-145); Total Protein 8.2 g/dL (6.3-8.2)
[2021-06-27 01:31] VITALS: BP 118/69; PULSE 91; RESP 17; O2SAT 97
== END 2021-06-27 01:33 | disposition home or self-care (01) ==
PROVIDERS: Emergency Provider Emergency Medicine; PCP Nurse Practitioner
DX: N83.201 Unspecified ovarian cyst, right side (principal); R10.2 Pelvic and perineal pain; K59.00 Constipation, unspecified; R73.9 Hyperglycemia, unspecified
CPT/HCPCS: 36415; 76830; 76856; 80053; 81003; 81015; 81025; 83690; 85025; 96374; 99284; J1885

== ENCOUNTER → 2021-08-21 10:42 | Outpatient (CLI) | payer OTHER, MEDICAID, SELFPAY | PROVIDERS: PCP Nurse Practitioner; Referring Provider Physician Assistant; Visit Provider Physician Assistant | DX: R30.9 Painful micturition, unspecified (principal) | CPT/HCPCS: 87086 ==

== ENCOUNTER → 2021-08-21 11:23 | Outpatient (CLI) | payer OTHER, MEDICAID, SELFPAY ==
[2021-08-21 13:07] LABS: Hematocrit 39.7 % (36-46); Hemoglobin 13.4 g/dL (12.0-16.0); Mean Corpuscular HGB Conc 33.8 % (30-36); Mean Corpuscular Hemoglobin 26.9 PG (26-34); Mean Corpuscular Volume 79.7 fL (80-100); Platelet Count 290 X10^3/uL (150-400); Red Blood Cell Count 4.99 X10^6/uL (4.0-5.2); Red Cell Distribution Width 13.6 % (11.6-14.8); White Blood Cell Count 13.8 X10^3/uL (4.5-11.0)
[2021-08-21 13:23] LABS: Hemoglobin A1C% w Est Avg Glu 10.4 % (4.0-6.0)
[2021-08-21 13:25] LABS: Alanine Aminotransferase 28 IU/L (<35); Albumin 4.4 g/dL (3.5-5.0); Albumin Globulin Ratio 1.3 (1.0-2.8); Alkaline Phosphatase 80 U/L (38-126); Aspartate Aminotransferase 45 IU/L (14-36); BUN Creatinine Ratio 26.3 (6-22); Bilirubin Total 0.3 mg/dL (0.2-1.3); Blood Urea Nitrogen 10 mg/dL (7-17); Calcium 9.6 mg/dL (8.4-10.2); Carbon Dioxide 23 mmol/L (22-32); Chloride 100 mmol/L (98-107); Cholesterol 201 mg/dL (140-199); Estimated Glomerular Filt Rate > 60.0 mL/min (>60); Globulin 3.3 g/dL (1.7-4.1); Glucose 356 mg/dL (70-100); HDL Cholesterol 37 mg/dL (40-60); HEMOLYSIS < 15 (0-50); Potassium 4.1 mmol/L (3.4-5.1); Sodium 137 mmol/L (137-145); Total Protein 7.7 g/dL (6.3-8.2); Triglycerides 461 mg/dL (35-150)
[2021-08-21 13:47] LABS: Free T3, Triiodothyronine Free 3.78 pg/mL (2.77-5.27); Free T4, Direct Thyroxine 1.24 ng/dL (0.78-2.19)
[2021-08-21 14:00] LABS: Thyroid Stimulating Hormone 1.12 uIU/mL (0.47-4.68)
[2021-08-21 14:20] LABS: Urine N gonorrhoeae NOT DETECTED
[2021-08-21 14:21] LABS: Urine Chlamydia NOT DETECTED
[2021-08-21 15:42] LABS: Creatinine Urine Random 74.6 mg/dL
[2021-08-21 15:50] LABS: Microalbumi Creatinin Ratio Ur 210.4 ug/mg CR (<30); Microalbumin Urine Random 15.7 mg/dL (0-1.6)
[2021-08-21 17:10] LABS: Hepatitis B Surface Antigen NEGATIVE s/c (NEGATIVE)
[2021-08-21 17:29] LABS: HIV 1 & 2 Ab/Ag 4th Gen Combo NEGATIVE (NEGATIVE); Hep C Virus Ab w/Reflex Quant NEGATIVE s/c (NEGATIVE)
[2021-08-22 09:04] LABS: HSV1IGG < 0.91 index (0.00-0.90)
[2021-08-22 20:24] LABS: HSV I/II IgM <0.91 Ratio (0.00-0.90)
[2021-08-24 16:16] LABS: RPR Screen Non Reactive (Non Reactive)
== END ==
PROVIDERS: PCP Nurse Practitioner; Referring Provider Nurse Practitioner; Visit Provider Nurse Practitioner
DX: D72.829 Elevated white blood cell count, unspecified (principal); R73.9 Hyperglycemia, unspecified; Z11.3 Encounter for screening for infections with a predominantly sexual mode of transmission; E28.2 Polycystic ovarian syndrome; R03.0 Elevated blood-pressure reading, without diagnosis of hypertension; R30.9 Painful micturition, unspecified
CPT/HCPCS: 36415; 80053; 80061; 81002; 82043; 82570; 82948; 83036; 84439; 84443; 84481; 85027; 86592; 86694; 86695; 86696; 86803; 87077; 87086; 87186; 87340; 87389; 87491; 87591

== ENCOUNTER → 2021-10-23 12:38 | Outpatient (CLI) | payer OTHER, MEDICAID, SELFPAY ==
--- NOTE | 2021-10-23 | DI.RAD.S_ITS ---
PROCEDURE: XR HAND LT MIN 3V INDICATIONS: PAIN RT HAND AND FINGER TECHNIQUE: 3 views of the left hand(s) acquired. COMPARISON: None. FINDINGS: Bones: Joint spaces maintained. No degenerative changes. No fractures or dislocations. Carpal bones are normally aligned. No suspicious bony lesions. Soft tissues: No suspicious soft tissue calcifications. IMPRESSION: Normal left and radiographs. No acute finding or degenerative changes. Dictated by: Alf St M.D. on 10/23/2021 at 13:32 Approved by: Alf St M.D. on 10/23/2021 at 13:34
== END ==
PROVIDERS: PCP Nurse Practitioner; Referring Provider Nurse Practitioner; Visit Provider Nurse Practitioner
DX: M79.641 Pain in right hand (principal); M79.644 Pain in right finger(s)
CPT/HCPCS: 73130

== ENCOUNTER 2022-04-06 09:32 | Emergency (ER) | payer OTHER, MEDICAID, SELFPAY ==
[2022-04-06 09:43] VITALS: BP 123/77; PULSE 85; RESP 22; TEMP 36.3; O2SAT 97; BMI 39.7
--- NOTE | 2022-04-06 10:08 | ED.FEMALEGU ---
HPI - Female Genitourinary General Chief complaint: Urogenital-Female Stated complaint: cyst on rt ovary Time Seen by Provider: 04/06/22 10:04 Source: patient Mode of arrival: Wheelchair Limitations: no limitations History of Present Illness HPI Narrative: The patient presents with onset of sharp right lower quadrant pain this morning. She says she has chronic pain in that area, pain is much worse now. She also has occasional sciatic pain. She has not eaten breakfast, but she has no loss of appetite. She has no nausea or vomiting. She is probably mid cycle, she denies . She has no fever or chills. In 2017 she had an ovarian cyst with torsion, requiring operative intervention. Related Data Home Medications Medication Instructions Recorded Confirmed naproxen 500 mg tablet 500 mg PO BID PRN 01/15/20 02/01/22 cholecalciferol (vitamin D3) 25 25 mcg PO DAILY 02/01/22 02/01/22 mcg (1,000 unit) capsule iron 125 mg-iron 25 mg (asp tab PO 02/01/22 02/01/22 gly)-folic acid 1 mg-mvit,min#38 tablet multivitamin with minerals 1 tab PO DAILY 02/01/22 02/01/22 (Hair,Skin and Nails tablet) norelgestromin 150 mcg-e.estradiol 1 patch transdermal QWEEK 02/01/22 02/01/22 35 mcg/24 hr weekly transderm patch (Xulane) vitamin B complex (B 1 tab PO DAILY 02/01/22 02/01/22 Complex-Vitamin B12 tablet) Previous Rx's Medication Instructions Recorded Glucometer #1 ea 08/22/21 Lancettes #100 ea 08/22/21 glucose test strips #100 ea 08/22/21 lancette device #1 ea 08/22/21 omega-3 acid ethyl esters 1 gram 1 cap PO BID #180 caps 08/22/21 capsule (Lovaza) Blood Pressure Cuff - Omron upper #1 ea 10/23/21 arm lisinopril 5 mg tablet 5 mg PO DAILY #90 tabs 10/23/21 metformin 1,000 mg tablet,extended 2,000 mg PO QPM #180 tabs 10/23/21 release 24hr metformin 500 mg tablet,extended 1,000 mg PO BID 30 days #120 tabs 02/10/22 release 24 hr calcium carbonate 600 mg calcium 600 mg PO BID #180 tabs 02/01/22 (1,500 mg) tablet (Calcium) spironolactone 50 mg tablet 50 mg PO QAM #90 tabs 02/01/22 valacyclovir 1 gram tablet 1,000 mg PO BID herpes #20 tabs 03/28/22 hydrocodone 5 mg-acetaminophen 325 1 tab PO Q4-6H PRN pain #14 tabs 04/06/22 mg tablet Allergies Allergy/AdvReac Type Severity Reaction Status Date / Time propofol Allergy Severe Difficulty Verified 12/23/21 14:09 Breathing Review of Systems Constitutional Constitutional: Denies body ache(s), Denies chills and Denies headache(s) ENT Ears, Nose, Mouth, and Throat: Denies headache(s), Denies sinus pain and Denies sinus pressure Cardiovascular Cardiovascular: Denies chest pain, Denies pedal edema and Denies dyspnea Respiratory Respiratory: Denies cough and Denies dyspnea Gastrointestinal Gastrointestinal: Reports as per HPI, Reports abdominal pain, Denies heartburn and Denies vomiting Genitourinary Genitourinary: Denies dysuria and Denies flank pain Musculoskeletal Musculoskeletal: Denies back pain Integumentary/Breasts Skin/Breast: Denies rash Neurologic Neurologic: Denies headache(s) Comments: No lower extremity weakness. Hematologic/Lymphatic On Anticoagulants: No Patient History Medical History Acute cystitis Blood per rectum Diabetes mellitus type 2 in obese Diabetes mellitus, new onset Elevated fasting blood sugar Hemorrhoids Hirsutism Hypertension Hypertriglyceridemia Infection due to yeast Miscarriage within last 12 months Non-insulin dependent diabetes mellitus PCOS (polycystic ovarian syndrome) Pelvic pain Preventative health care Sciatic nerve pain Strep pharyngitis Surveillance of oral contraception, patch, or vaginal ring Tonsillitis Unwanted fertility Uses hormonal contraceptive patch as primary control method Surgical History History of Hx of cholecystectomy Hx of dilation and curettage Family History Grandmother Hypertension Cancer Stroke Grandfather Diabetes mellitus Stroke alcohol intake frequency: 0-2 drinks per day Substance Use Type: marijuana Exam Initial Vital Signs Initial Vital Signs: Vital Signs Temperature 97.4 F L 04/06/22 09:43 Pulse Rate 85 04/06/22 09:43 Respiratory Rate 22 04/06/22 09:43 Blood Pressure 123/77 04/06/22 09:43 Pulse Oximetry 97 04/06/22 09:43 Oxygen Delivery Method 04/06/22 09:43 Const General: cooperative, healthy appearing and other (Uncomfortable.) Nutritional Appearance: obese [facility] Head: normocephalic and atraumatic Resp Auscultation: clear to auscultation bilaterally Cardio Rate: regular rate Rhythm: regular rhythm Heart Sounds: S1 normal, S2 normal, no click, no gallops, no murmurs and no rubs GI Inspection: normal to inspection Other: Tenderness in the right lower quadrant, guarding but no rebound. No masses. Normal bowel sounds. General: No CVA tenderness Back/Spine/Pelvis Back: normal to inspection and No CVA tenderness Skin General: no rashes or lesions noted Neuro General: patient alert, patient awake and patient oriented x3 Motor: muscle tone normal throughout Other: Normal SLR on the right Extrem General: normal to inspection, no pedal edema and no calf tenderness Psych Appearance: grossly normal Course Course Course Narrative: The patient feels somewhat better with IV Toradol. CT revealed an ovarian cyst, no appendicitis. Ultrasound confirmed the absence of ovarian torsion. She will be discharged home on Ne[place]ha and ibuprofen. 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 Orders Ordered: ED Orders 04/06/22 10:11 CT abdomen pelvis w con Stat 04/06/22 10:49 Complete Blood Count AUTO DIFF Stat Comprehensive Metabolic Panel Stat Lipase Stat 04/06/22 12:34 US pelvic limited Stat Sodium Chloride (Normal Saline 0.9%) 1,000 mls @ 250 mls/hr IV CONT MUSTAPHA Last Admin: 04/06/22 11:26 Dose: 250 mls/hr Documented By: NIRAJ Discontinued Medications Ketorolac Tromethamine (Ketorolac 30 Mg/Ml Vial) 30 mg IV NOW ONE Stop: 04/06/22 10:10 Last Admin: 04/06/22 11:26 Dose: 30 mg Documented By: NIRAJ Vital Signs Vital signs: Vital Signs - 8 hr 04/06/22 09:43 04/06/22 12:35 04/06/22 12:36 Temperature 97.4 F L Pulse Rate 85 88 88 Respiratory Rate 22 Blood Pressure 123/77 Pulse Oximetry 97 97 98 Oxygen Delivery Method Room Air 04/06/22 12:36 04/06/22 13:00 04/06/22 13:00 Temperature Pulse Rate 88 Respiratory Rate Blood Pressure 124/76 117/73 Pulse Oximetry 96 Oxygen Delivery Method MDM - Female Genitourinary Lab Data Result diagrams: 04/06/22 10:49 04/06/22 10:49 Labs: Lab Results 04/06/22 04/06/22 Range/Units 10:49 10:49 WBC 9.9 (4.5-11.0) X10^3/uL RBC 4.90 (4.0-5.2) X10^6/uL Hgb 13.4 (12.0-16.0) g/dL Hct 38.9 (36-46) % MCV 79.4 L (80-100) fL MCH 27.4 (26-34) PG MCHC 34.5 (30-36) % RDW 13.6 (11.6-14.8) % Plt Count 308 (150-400) X10^3/uL Neut % (Auto) 66.8 (50-75) % Lymph % (Auto) 25.1 (25-40) % [place] % (Auto) 6.5 (3-14) % Eos % (Auto) 1.1 L (2-4) % Baso % (Auto) 0.5 (0-2) % Neut # (Auto) 6600 (8207-5508) /uL Lymph # (Auto) 2500 (2397-2707) /uL [place] # (Auto) 600 (0-900) /uL Eos # (Auto) 100 (0-450) /uL Baso # (Auto) 0 (0-100) /uL Sodium 135 L (137-145) mmol/L Potassium 4.1 (3.4-5.1) mmol/L Chloride 102 (98-107) mmol/L Carbon Dioxide 24 (22-32) mmol/L BUN 7 (7-17) mg/dL Creatinine 0.41 L (0.52-1.04) mg/dL Estimated GFR > 60 (>60) mL/min BUN/Creatinine Ratio 17.1 (6-22) Glucose 318 H (70-100) mg/dL Calcium 8.6 (8.4-10.2) mg/dL Total Bilirubin 0.4 (0.2-1.3) mg/dL AST 44 H (14-36) IU/L ALT 44 H (<35) IU/L Alkaline Phosphatase 74 (38-126) U/L Total Protein 7.4 (6.3-8.2) g/dL Albumin 4.1 (3.5-5.0) g/dL Globulin 3.3 (1.7-4.1) g/dL Albumin/Globulin Ratio 1.2 (1.0-2.8) Lipase 47 (23-300) U/L Point of Care Testing Test Results Negative Urine Dip Bedside Urine Glucose 1000 mg/dl Bedside Urine Bilirubin - Negative Bedside Urine Ketone + 15 Urine Specific [place] 1.025 Bedside Urine Occult Blood - Negative Bedside Urine pH 6.0 Bedside Urine Protein - Negative Bedside Urine Urobilinogen - Negative Bedside Urine Nitrite - Negative Bedside Urine Leukocytes - Negative Esterase Imaging Data CT scan - abdomen/pelvis: Radiologist's Impression: Lung bases:? Unremarkable.? ? Heart:? No significant findings. ? ABDOMEN: Liver:? There is diffuse hypoattenuation of the liver parenchyma relative to the spleen compatible with hepatic steatosis. Gallbladder:? Unremarkable.? ? Biliary ducts:? Unremarkable.? ? Pancreas:? Homogeneous enhancement without focal lesions or pancreatic ductal dilatation. ?No peripancreatic inflammation or organized fluid collections.? ? Spleen:? Unremarkable.? ? Adrenal Glands:? Unremarkable.? ? Kidneys and Ureters:? Unremarkable.? ? ? Stomach and Bowel:? Stomach, small bowel loops, and colon are unremarkable.? Normal appendix Peritoneum:? No abnormal intraperitoneal fluid.? No free air.? ? Ventral Wall: ? No hernia.? Abdominal Nodes:? No retroperitoneal or mesenteric adenopathy by size criteria.? Vessels:? Aorta and inferior vena cava are normal in size.? ? PELVIS: Pelvic Organs:? There is a prominent cystic lesion noted in the right ovary/adnexa which is likely a cyst.? This measures approximately 3.9 x 3.7 cm in size (image 78/series 2).? Trace amount of pelvic free fluid likely physiologic.? No acute inflammatory changes in the region.? ? Bladder:? Urinary bladder thickness appears normal for degree of distention. No perivesicular inflammatory stranding.? ? Pelvic Nodes: No enlarged lymph nodes.? Miscellaneous: No inguinal hernias are seen. ? ? ? Bones:? Unremarkable.? ? ? IMPRESSION:? ? 1. A 3.9 x 3.7 cm cystic structure within the region of the right ovary/adnexa likely representing a cyst.? No associated inflammatory changes.? Otherwise, no acute abnormalities identified in the abdomen or pelvis.? Appendix is normal. ? 2. Hepatic steatosis.? ? Pelvic ultrasound:: My Impression: Right ovarian cyst, no evidence of torsion. Discharge Plan Departure Patient Disposition: Home Clinical Impression: Cyst of right ovary Instructions: DI for Ovarian Cyst Activity Restrictions/Additional Instructions: Ibuprofen foreign mg every 6 hours for pain. [place]ha every 4-6 hours as needed for added pain control. Contact your sugar laboratory assistant to arrange follow-up. Return to the ER as needed. Prescriptions: New hydrocodone-acetaminophen 5-325 mg tablet 1 tab PO Q4-6H PRN (Reason: pain) Qty: 14 0RF No Action metformin 500 mg tablet extended release 24 hr 1,000 mg PO BID 30 Days Qty: 120 11RF Rx Instructions: Take 1 tabs (1000mg) twice per day with meals valacyclovir 1 gram tablet 1,000 mg PO BID Qty: 20 0RF metformin 1,000 mg tablet extended release 24hr 2,000 mg PO QPM Qty: 180 3RF Rx Instructions: Take 2 of the extended release tabs every evening with dinner. lisinopril 5 mg tablet 5 mg PO DAILY Qty: 90 3RF Rx Instructions: Take 1 tab at bedtime daily. Please check your BP daily. (DME) Blood Pressure Cuff - Omron upper arm See Rx Instructions .Route .MEDSUPPLY Qty: 1 0RF Rx Instructions: Take your blood pressure daily as directed spironolactone 50 mg tablet 50 mg PO QAM Qty: 90 3RF Xulane 150-35 mcg/24 hr patch weekly 1 patch transdermal QWEEK Rx Instructions: apply once weekly for 3 weeks of a 4-week cycle vitamin B complex [B Complex-Vitamin B12] Tablet 1 tab PO DAILY Hair,Skin and Nails Tablet 1 tab PO DAILY calcium carbonate [Calcium 600] 600 mg calcium (1,500 mg) tablet 600 mg PO BID Qty: 180 0RF cholecalciferol (vitamin D3) 25 mcg (1,000 unit) capsule 25 mcg PO DAILY iron,iron asp gly-FA-mv,min38 125 mg iron-25 mg iron-1 mg tablet PO omega-3 acid ethyl esters [Lovaza] 1 gram capsule 1 cap PO BID Qty: 180 3RF Rx Instructions: Take 1 tab twice per day for elevated triglycerides (DME) Glucometer See Rx Instructions .Route .MEDSUPPLY Qty: 1 0RF Rx Instructions: Check FSBG daily and as needed. BRAND PER INSURANCE ([facility]) glucose test strips See Rx Instructions .Route .MEDSUPPLY Qty: 100 3RF Rx Instructions: Check FSBG daily and as needed. BRAND PER INSURANCE ([facility]) lancette device See Rx Instructions .Route .MEDSUPPLY Qty: 1 0RF Rx Instructions: Check blood glucose daily and as needed. BRAND PER INSURANCE ([facility]) Lancettes See Rx Instructions .Route .MEDSUPPLY Qty: 100 3RF Rx Instructions: Check FSBG daily and as needed. BRAND PER INSURANCE naproxen 500 mg tablet 500 mg PO BID PRN Referrals: Cecy Schneider ARNP [Primary Care Provider] - Stand Alone Forms: Work Release Note
--- NOTE | 2022-04-06 10:11 | DI.CT.S_ITS ---
PROCEDURE: CT ABDOMEN PELVIS W CON INDICATIONS: lower pelvic pains TECHNIQUE: After the administration of intravenous contrast, axial sections acquired from the lung bases to the pubic symphysis. Coronal and sagittal reformats were performed. For radiation dose reduction, the following was used: automated exposure control, adjustment of mA and/or kV according to patient size. COMPARISON: [facility], CT, CT ABDOMEN PELVIS W CON, 05/23/2019, 1:09. [facility], CT, CT ABDOMEN PELVIS W CON, 05/17/2019, 1:12. FINDINGS: Image quality: Excellent. Lung bases: Unremarkable. Heart: No significant findings. ABDOMEN: Liver: There is diffuse hypoattenuation of the liver parenchyma relative to the spleen compatible with hepatic steatosis. Gallbladder: Unremarkable. Biliary ducts: Unremarkable. Pancreas: Homogeneous enhancement without focal lesions or pancreatic ductal dilatation. No peripancreatic inflammation or organized fluid collections. Spleen: Unremarkable. Adrenal Glands: Unremarkable. Kidneys and Ureters: Unremarkable. Stomach and Bowel: Stomach, small bowel loops, and colon are unremarkable. Normal appendix Peritoneum: No abnormal intraperitoneal fluid. No free air. Ventral Wall: No hernia. Abdominal Nodes: No retroperitoneal or mesenteric adenopathy by size criteria. Vessels: Aorta and inferior vena cava are normal in size. PELVIS: Pelvic Organs: There is a prominent cystic lesion noted in the right ovary/adnexa which is likely a cyst. This measures approximately 3.9 x 3.7 cm in size (image 78/series 2). Trace amount of pelvic free fluid likely physiologic. No acute inflammatory changes in the region. Bladder: Urinary bladder thickness appears normal for degree of distention. No perivesicular inflammatory stranding. Pelvic Nodes: No enlarged lymph nodes. Miscellaneous: No inguinal hernias are seen. Bones: Unremarkable. IMPRESSION: 1. A 3.9 x 3.7 cm cystic structure within the region of the right ovary/adnexa likely representing a cyst. No associated inflammatory changes. Otherwise, no acute abnormalities identified in the abdomen or pelvis. Appendix is normal. 2. Hepatic steatosis. Dictated by: Brandon Alejandro M.D. on 04/06/2022 at 11:11 Approved by: Brandon Alejandro M.D. on 04/06/2022 at 11:18
[2022-04-06 10:56] LABS: Add Manual Diff / Slide Review NO; Basophils Absolute Auto 0 /uL (0-100); Basophils Percent Auto 0.5 % (0-2); Eosinophils Absolute Auto 100 /uL (0-450); Eosinophils Percent Auto 1.1 % (2-4); Hematocrit 38.9 % (36-46); Hemoglobin 13.4 g/dL (12.0-16.0); Lymphocytes Absolute Auto 2500 /uL (1100-4500); Lymphocytes Percent Auto 25.1 % (25-40); Mean Corpuscular HGB Conc 34.5 % (30-36); Mean Corpuscular Hemoglobin 27.4 PG (26-34); Mean Corpuscular Volume 79.4 fL (80-100); Monocytes Absolute Auto 600 /uL (0-900); Monocytes Percent Auto 6.5 % (3-14); Neutrophils Absolute Auto 6600 /uL (1500-7000); Neutrophils Percent Auto 66.8 % (50-75); Platelet Count 308 X10^3/uL (150-400); Red Cell Distribution Width 13.6 % (11.6-14.8); White Blood Cell Count 9.9 X10^3/uL (4.5-11.0)
[2022-04-06 11:07] LABS: Alanine Aminotransferase 44 IU/L (<35); Albumin 4.1 g/dL (3.5-5.0); Albumin Globulin Ratio 1.2 (1.0-2.8); Alkaline Phosphatase 74 U/L (38-126); Aspartate Aminotransferase 44 IU/L (14-36); BUN Creatinine Ratio 17.1 (6-22); Bilirubin Total 0.4 mg/dL (0.2-1.3); Blood Urea Nitrogen 7 mg/dL (7-17); Calcium 8.6 mg/dL (8.4-10.2); Carbon Dioxide 24 mmol/L (22-32); Chloride 102 mmol/L (98-107); Estimated Glomerular Filt Rate > 60 mL/min (>60); Globulin 3.3 g/dL (1.7-4.1); Glucose 318 mg/dL (70-100); HEMOLYSIS < 15 (0-50); Lipase 47 U/L (23-300); Potassium 4.1 mmol/L (3.4-5.1); Sodium 135 mmol/L (137-145); Total Protein 7.4 g/dL (6.3-8.2)
[2022-04-06] MEDS: KETOROLAC 30 MG/ML VIAL IV (11:26)
[2022-04-06] MEDS: SODIUM CHLORIDE 0.9% 1,000 ML 250 ML IV (11:26)
[2022-04-06 12:35] VITALS: PULSE 88; O2SAT 97
[2022-04-06 12:36] VITALS: BP 124/76; PULSE 88; O2SAT 98
[2022-04-06 13:00] VITALS: BP 117/73; PULSE 88; O2SAT 96
--- NOTE | 2022-04-06 13:54 | DI.US.S_ITS ---
PROCEDURE: US PELVIC COMPLETE COMPARISON: [facility], CT, CT ABDOMEN PELVIS W CON, 04/06/2022, 10:55. INDICATIONS: OVARIAN CYST VS TORSION TECHNIQUE: Grayscale and color flow transabdominal and transvaginal scanning of the pelvis, with image documentation. FINDINGS: The uterus is normal in size at 8.0 x 4.8 x 3.9 cm. The uterus is anteverted with a homogeneous echotexture. The endometrial echo complex measures 9 mm in thickness. The right ovary measures 3.9 x 3.6 x 4.6 cm (33.6 cc). The left ovary measures 3.4 x 2.6 x 2.7 cm (12.4 cc). A right ovarian cyst is seen with low-level internal echoes measuring 2.2 x 2.3 x 2.0 cm. Arterial and venous Doppler flow is seen within both ovaries, although this does not exclude the possibility of intermittent torsion-detorsion. Trace free fluid in seen in the pelvis. IMPRESSION: 1. Right ovary is enlarged by a 2.3 cm hemorrhagic cyst. Arterial and venous Doppler flow is seen to each ovary. 2. Trace free fluid in the pelvis is nonspecific and may be physiologic. Dictated by: Han Casey M.D. on 04/06/2022 at 14:22 Approved by: Han Casey M.D. on 04/06/2022 at 14:29
== END 2022-04-06 14:30 | disposition home or self-care (01) ==
PROVIDERS: Emergency Provider Emergency Medicine; PCP Nurse Practitioner
DX: N83.201 Unspecified ovarian cyst, right side (principal)
CPT/HCPCS: 36415; 74177; 76856; 76857; 80053; 81003; 81025; 83690; 85025; 96361; 96374; 99284; J1885

== ENCOUNTER → 2022-07-11 16:00 | Outpatient (CLI) | payer OTHER, MEDICAID, SELFPAY ==
[2022-07-11 16:39] LABS: Add Manual Diff / Slide Review NO; Basophils Absolute Auto 100 /uL (0-100); Basophils Percent Auto 0.6 % (0-2); Eosinophils Absolute Auto 200 /uL (0-450); Eosinophils Percent Auto 2.1 % (2-4); Hematocrit 41.4 % (36-46); Hemoglobin 13.8 g/dL (12.0-16.0); Hemoglobin A1C% w Est Avg Glu 6.7 % (4.0-6.0); Lymphocytes Absolute Auto 3100 /uL (1100-4500); Lymphocytes Percent Auto 26.9 % (25-40); Mean Corpuscular HGB Conc 33.3 % (30-36); Mean Corpuscular Hemoglobin 27.1 PG (26-34); Mean Corpuscular Volume 81.4 fL (80-100); Monocytes Absolute Auto 600 /uL (0-900); Monocytes Percent Auto 5.6 % (3-14); Neutrophils Absolute Auto 7400 /uL (1500-7000); Neutrophils Percent Auto 64.8 % (50-75); Platelet Count 383 X10^3/uL (150-400); Red Blood Cell Count 5.08 X10^6/uL (4.0-5.2); Red Cell Distribution Width 13.7 % (11.6-14.8); White Blood Cell Count 11.5 X10^3/uL (4.5-11.0)
[2022-07-11 16:48] LABS: Alanine Aminotransferase 25 IU/L (<35); Albumin 4.3 g/dL (3.5-5.0); Alkaline Phosphatase 64 U/L (38-126); Aspartate Aminotransferase 25 IU/L (14-36); BUN Creatinine Ratio 26.3 (6-22); Bilirubin Total 0.3 mg/dL (0.2-1.3); Blood Urea Nitrogen 15 mg/dL (7-17); Calcium 9.4 mg/dL (8.4-10.2); Carbon Dioxide 25 mmol/L (22-32); Chloride 103 mmol/L (98-107); Cholesterol 241 mg/dL (140-199); Estimated Glomerular Filt Rate > 60 mL/min (>60); Globulin 4.3 g/dL (1.7-4.1); Glucose 113 mg/dL (70-100); HDL Cholesterol 35 mg/dL (40-60); HEMOLYSIS < 15 (0-50); LDL Cholesterol Calculated 169 mg/dL (<100); Sodium 139 mmol/L (137-145); Total Protein 8.6 g/dL (6.3-8.2); Triglycerides 186 mg/dL (35-150)
[2022-07-11 17:18] LABS: Thyroid Stimulating Hormone 0.967 uIU/mL (0.47-4.68)
[2022-07-11 17:46] LABS: Creatinine Urine Random 47.4 mg/dL
[2022-07-11 17:52] LABS: Microalbumi Creatinin Ratio Ur 18.9 ug/mg CR (<30); Microalbumin Urine Random 0.9 mg/dL (0-1.6)
== END ==
PROVIDERS: PCP Nurse Practitioner; Referring Provider Nurse Practitioner; Visit Provider Nurse Practitioner
DX: D72.829 Elevated white blood cell count, unspecified (principal); E28.2 Polycystic ovarian syndrome; E78.1 Pure hyperglyceridemia; I10 Essential (primary) hypertension
CPT/HCPCS: 36415; 80053; 80061; 82043; 82570; 83036; 84443; 85025

== ENCOUNTER → 2022-07-30 15:10 | Outpatient (CLI) | payer OTHER, MEDICAID, SELFPAY | PROVIDERS: PCP Nurse Practitioner; Visit Provider Registered Nurse | DX: J02.9 Acute pharyngitis, unspecified (principal) | CPT/HCPCS: 87070; 87077; 87147; 87880 ==

== ENCOUNTER 2023-04-03 08:31 | Observation (INO) | payer OTHER, MEDICAID, SELFPAY ==
[2023-04-03] VITALS (20 sets, daily range): BP systolic 100–136; BP diastolic 54–86; PULSE 70–123; RESP 16–35; TEMP 36.6–37.7; O2SAT 86–99; BMI 37.1
--- NOTE | 2023-04-03 | PATH_ITS ---
[facility] Accession Number: [id number] No. of containers..01 Tissue . 01 Material submitted: . product of conception - PRODUCTS OF CONCEPTION . 01 Diagnosis: Uterine Contents: Rare degenerated chorionic villi, gestational endometrium, and decidual tissues (products of conception). Negative for gestational trophoblastic disease. MRV 04/10/2023 1508 Local . 01 Electronically signed: . Sanjana Guthrie MD, Pathologist NPI- [id number] . 01 Gross description: . The specimen is received in formalin labeled with the patient's name, , and products of conception, and consists of multiple de la rosa, spongy soft tissue fragments admixed with hemorrhagic material aggregating to 6.4 x 5.5 x 3.1 cm. No tissue is grossly identified. Mortar Worker sections are submitted in cassettes A1-A2. ([id number]) /[facility] 04/06/2023 1607 Local . 01 Pathologist provided ICD-10: O03.4 . 01 CPT . 064678 Specimen Comment: A courtesy copy of this report has been sent to [phone] Performed at: 01 [facility] [address] [place] [address], [place], [place] [id number] MD Adrian Parnell MD Phone: [phone]
--- NOTE | 2023-04-03 09:42 | DI.US.S_ITS ---
PROCEDURE: US PELVIC COMPLETE INDICATIONS: HEAVY BLEEDING. CHEMICALLY INDUCED 03/28/23 TECHNIQUE: Real-time scanning was performed of the pelvic organs, with image documentation. Additional endovaginal scanning was necessary due to incomplete visualization of the adnexal and endometrial structures by transabdominal scanning. COMPARISON: [facility], CT, CT ABDOMEN PELVIS W CON, 04/06/2022, 10:55. [facility], RG, US PELVIC COMPLETE, 04/06/2022, 13:54. FINDINGS: Limited examination due to the patient's body habitus. Uterus: Uterus is anteverted and normal in size at 10.5 x 6.0 x 4.3 cm. The myometrium is heterogeneous. The endometrium measures 25.6 mm combined thickness. On Doppler ultrasound, endometrium has increased vascularity. Cervix is thickened and demonstrates no vascularity, probably caused by a clot. Ovaries: The right ovary is not visualized. The left ovary measures 4.1 x 2.1 x 2.0 cm, with a calculated ovarian volume of 9.2 cc. The ovaries have a normal sonographic appearance. Less than 12 follicles can be seen in each ovary. No adnexal masses are seen. Other: No pathologic free abdominal or pelvic fluid. IMPRESSION: 1. Enlarged uterus with thickened endometrium which demonstrates increased vascularity. Cannot rule out retained products of conception. 2. Thickened cervix with no vascularity on Doppler ultrasound, probably caused by clot in the endocervical canal. 3. Right ovary is not visualized. Left ovary is grossly normal. We strive to produce accurate, complete, and clear reports of imaging services. To assist us in improving patient care, this report was composed using standard report templates and voice recognition software. Therefore, it may contain abnormal punctuation, insertions and/or omissions. Occasional wrong-word or sound-alike substitutions may occur. Though we review the report and make efforts to correct it, we do recommend that the report be read carefully in proper context to recognize any text inaccuracies. Dictated by: Pam Whitney M.D. on 04/03/2023 at 10:39 Approved by: Pam Whitney M.D. on 04/03/2023 at 10:54
[2023-04-03] MEDS: KETOROLAC 30 MG/ML VIAL 15 MG IV (09:49)
[2023-04-03 10:15] LABS: Add Manual Diff / Slide Review NO; Basophils Absolute Auto 0 /uL (0-100); Basophils Percent Auto 0.3 % (0-2); Eosinophils Absolute Auto 300 /uL (0-450); Eosinophils Percent Auto 2.4 % (2-4); Hemoglobin 10.9 g/dL (12.0-16.0); Lymphocytes Absolute Auto 3300 /uL (1100-4500); Mean Corpuscular HGB Conc 35.1 % (30-36); Mean Corpuscular Hemoglobin 29.1 PG (26-34); Mean Corpuscular Volume 82.7 fL (80-100); Monocytes Absolute Auto 900 /uL (0-900); Monocytes Percent Auto 6.8 % (3-14); Neutrophils Absolute Auto 8200 /uL (1500-7000); Neutrophils Percent Auto 64.5 % (50-75); Platelet Count 348 X10^3/uL (150-400); Red Blood Cell Count 3.75 X10^6/uL (4.0-5.2); Red Cell Distribution Width 13.4 % (11.6-14.8); White Blood Cell Count 12.7 X10^3/uL (4.5-11.0)
[2023-04-03 10:24] LABS: Alanine Aminotransferase 27 IU/L (<35); Albumin 3.9 g/dL (3.5-5.0); Albumin Globulin Ratio 1.2 (1.0-2.8); Alkaline Phosphatase 74 U/L (38-126); Aspartate Aminotransferase 26 IU/L (14-36); Bilirubin Total 0.1 mg/dL (0.2-1.3); Blood Urea Nitrogen 7 mg/dL (7-17); Calcium 8.6 mg/dL (8.4-10.2); Carbon Dioxide 25 mmol/L (22-32); Chloride 102 mmol/L (98-107); Estimated Glomerular Filt Rate > 60 mL/min (>60); Globulin 3.3 g/dL (1.7-4.1); Glucose 206 mg/dL (70-100); HEMOLYSIS < 15 (0-50); Potassium 3.9 mmol/L (3.4-5.1); Sodium 136 mmol/L (137-145); Total Protein 7.2 g/dL (6.3-8.2)
--- NOTE | 2023-04-03 10:28 | ED.PREGNANCY ---
HPI - General Chief complaint: OB/Uterine Contractions Stated complaint: process T-6, pain and heavy bleeding Time Seen by Provider: 04/03/23 09:42 Source: patient Mode of arrival: Ambulatory History of Present Illness HPI Narrative: This is a 28-year-old female with history of PCOS, diabetes type 2 and suspected endometriosis with prior who took Milfoprostone on 03/30/2023 patient was reportedly 7 weeks she was seen at [facility] emergency department at that time. Patient's hCG level on 03/30/2023 was 40,275 mIU per mL, hemoglobin was 12 with a hematocrit of 35 platelets of 268. Patient had presented with vaginal bleeding and some nausea was recommended to follow up if having new or worsening symptoms. No fevers. Patient states she did have quite a bit of bleeding with large clots the 1st day, she states it is slowed but still present still occasionally has clots but sometimes is more stringy had decreased somewhat but is like a very heavy. Has increased a little bit more. She states she is felt a little dizzy no syncope. No active chest pain or shortness of breath. No nausea or vomiting, she states she is been having regular bowel movements. No urinary symptoms such as dysuria urgency or frequency. Patient states she is having quite a bit of crampy abdominal pain. She is tried ibuprofen and Tylenol home without much improvement. She states she is had prior and removal of ovarian cyst. She was following with OBGYN here locally in the past. [facility] approximately 7 weeks did have an ultrasound at that time. States she is sensitivity to propofol 3rd difficult for her to wake up. Occasional tobacco, occasional ETOH, occasional marijuana no other illicit. She is accompanied by her mother today. Related Data Home Medications Medication Instructions Recorded Confirmed naproxen 500 mg tablet 500 mg PO BID PRN Pain (Scale 01/15/20 04/03/23 Score 1-3) cholecalciferol (vitamin D3) 25 25 mcg PO DAILY 02/01/22 04/03/23 mcg (1,000 unit) capsule iron 125 mg-iron 25 mg (asp tab PO 02/01/22 07/19/22 gly)-folic acid 1 mg-mvit,min#38 tablet multivitamin with minerals 1 tab PO DAILY 02/01/22 04/03/23 (Hair,Skin and Nails tablet) vitamin B complex (B 1 tab PO DAILY 02/01/22 04/03/23 Complex-Vitamin B12 tablet) Previous Rx's Medication Instructions Recorded Glucometer #1 ea 08/22/21 Lancettes #100 ea 08/22/21 glucose test strips #100 ea 08/22/21 lancette device #1 ea 08/22/21 Blood Pressure Cuff - Omron upper #1 ea 10/23/21 arm lisinopril 5 mg tablet 5 mg PO DAILY #90 tabs 10/23/21 calcium carbonate 600 mg calcium 600 mg PO BID #180 tabs 02/01/22 (1,500 mg) tablet (Calcium) hydrocodone 5 mg-acetaminophen 325 1 tab PO Q4-6H PRN pain #14 tabs 04/06/22 mg tablet metformin 500 mg tablet,extended 1,000 mg PO BID 30 days #120 tabs 05/16/22 release 24 hr empagliflozin 10 mg tablet 10 mg PO QAM #90 tabs 07/19/22 (Jardiance) metronidazole 1 % topical gel 1 applic topical BEDTIME #60 grams 07/19/22 omega-3 acid ethyl esters 1 gram 1 cap PO BID #180 caps 07/19/22 capsule (Lovaza) rosuvastatin 5 mg tablet 5 mg PO DAILY #90 tabs 07/19/22 spironolactone 100 mg tablet 100 mg PO QAM #90 tabs 07/19/22 valacyclovir 1 gram tablet 1,000 mg PO BID herpes #20 tabs 07/19/22 norelgestromin 150 mcg-e.estradiol 1 patch transdermal QWEEK #12 ea 08/20/22 35 mcg/24 hr weekly transderm patch (Xulane) oxycodone 5 mg tablet 5 mg PO Q4H PRN pain #10 tabs 04/03/23 Allergies Allergy/AdvReac Type Severity Reaction Status Date / Time propofol Allergy Severe Difficulty Verified 04/03/23 08:39 Breathing Review of Systems Review of Systems ROS Unobtainable: All systems reviewed & are unremarkable except as noted in HPI and below Exam Narrative Exam Narrative: GENERAL: Alert and oriented x three, obese female in mild distress. HEENT: Head normocephalic, atraumatic, EOMI, pupils reactive, face symmetric, moist mucous membranes NECK: Supple, full range of motion CARDIOVASCULAR: Regular rate and rhythm without murmurs, rubs or gallops. RESPIRATORY: Breath sounds equal bilaterally, no wheezes rales or rhonchi. ABDOMEN: Soft, nontender. Normoactive bowel sounds all 4 quadrants. No guarding or rebound, rigidity, no mass : No CVA tenderness EXTREMITIES: Normal range of motion, no clubbing or edema. Neurovascularly intact NEUROLOGICAL: Cranial nerves II through XII grossly intact. Moving all extremities SKIN: Warm, dry, no petechiae, no rashes or lesions. Initial Vital Signs Initial Vital Signs: Vital Signs Temperature 97.9 F 04/03/23 08:33 Pulse Rate 105 H 04/03/23 08:33 Respiratory Rate 22 04/03/23 08:33 Blood Pressure 134/75 04/03/23 08:33 Pulse Oximetry 97 04/03/23 08:33 Oxygen Delivery Method Room Air 04/03/23 08:33 Course Orders Ordered: ED Orders 04/03/23 09:55 ABO RH Type Stat CBC Auto Diff [Complete Blood Count AUTO DIFF] Stat CMP [Comprehensive Metabolic Panel] Stat HCG Quantitative /Beta subunit Stat Lactated Ringer's (Lactated Ringers) 1,000 mls @ 100 mls/hr IV CONT MUSTAPHA Last Infusion: 04/03/23 17:08 Dose: 100 mls/hr Documented By: Admin: 04/03/23 12:47 Dose: 100 mls/hr Documented By: TYRONE Discontinued Medications Hydrocodone Bitart/Acetaminophen (Hydrocodone/Acet 5/325 Tablet) 2 tab PO NOW ONE Stop: 04/03/23 11:01 Last Admin: 04/03/23 11:06 Dose: 2 tab Documented By: NIVIA Ketorolac Tromethamine (Ketorolac 30 Mg/Ml Vial) 15 mg IV NOW ONE Stop: 04/03/23 09:43 Last Admin: 04/03/23 09:49 Dose: 15 mg Documented By: NIVIA Vital Signs Vital signs: Vital Signs - 8 hr 04/03/23 11:12 04/03/23 11:11 04/03/23 11:11 Pulse Rate 96 H 85 Respiratory Rate 18 Blood Pressure 136/83 136/83 Pulse Oximetry 98 98 Oxygen Delivery Method Room Air Room Air MDM - OB/Uterine Contractions Lab Data 04/03/23 09:55 04/03/23 09:55 Labs: Lab Results 04/03/23 04/03/23 04/03/23 Range/Units 09:55 09:55 09:55 WBC 12.7 H (4.5-11.0) X10^3/uL RBC 3.75 L (4.0-5.2) X10^6/uL Hgb 10.9 L (12.0-16.0) g/dL Hct 31.0 L (36-46) % MCV 82.7 (80-100) fL MCH 29.1 (26-34) PG MCHC 35.1 (30-36) % RDW 13.4 (11.6-14.8) % Plt Count 348 (150-400) X10^3/uL Neut % (Auto) 64.5 (50-75) % Lymph % (Auto) 26.0 (25-40) % [place] % (Auto) 6.8 (3-14) % Eos % (Auto) 2.4 (2-4) % Baso % (Auto) 0.3 (0-2) % Neut # (Auto) 8200 H (7317-7810) /uL Lymph # (Auto) 3300 (7192-7272) /uL [place] # (Auto) 900 (0-900) /uL Eos # (Auto) 300 (0-450) /uL Baso # (Auto) 0 (0-100) /uL Sodium 136 L (137-145) mmol/L Potassium 3.9 (3.4-5.1) mmol/L Chloride 102 (98-107) mmol/L Carbon Dioxide 25 (22-32) mmol/L BUN 7 (7-17) mg/dL Creatinine 0.35 L (0.52-1.04) mg/dL Estimated GFR > 60 (>60) mL/min BUN/Creatinine Ratio 20.0 (6-22) Glucose 206 H (70-100) mg/dL Calcium 8.6 (8.4-10.2) mg/dL Total Bilirubin 0.1 L (0.2-1.3) mg/dL AST 26 (14-36) IU/L ALT 27 (<35) IU/L Alkaline Phosphatase 74 (38-126) U/L Total Protein 7.2 (6.3-8.2) g/dL Albumin 3.9 (3.5-5.0) g/dL Globulin 3.3 (1.7-4.1) g/dL Albumin/Globulin Ratio 1.2 (1.0-2.8) HCG, Quant 5512.8 mIU/mL Blood Type A Positive Point of Care Testing Glucose POC 106 Imaging Data US - OB: Radiologist's Impression: [address] [address] Ultrasound Report Signed Patient: Rosalino Dinh MR#: [id number] : 1995 Acct:[id number] Age/Sex: 28 / F Date of Service: 04/03/23 Loc: ED Accession Number: [id number] ?? Procedure: US pelvic complete Ordering Provider: Paty Almendarez D.O. PROCEDURE:? US PELVIC COMPLETE ? INDICATIONS:? HEAVY BLEEDING. CHEMICALLY INDUCED 03/28/23 ? TECHNIQUE:? Real-time scanning was performed of the pelvic organs, with image documentation.? Additional endovaginal scanning was necessary due to incomplete visualization of the adnexal and endometrial structures by transabdominal scanning.? ? COMPARISON:? [facility], CT, CT ABDOMEN PELVIS W CON, 04/06/2022, 10:55.? [facility], RG, US? PELVIC COMPLETE, 04/06/2022, 13:54. ? FINDINGS:? Limited examination due to the patient's body habitus. ?? Uterus:? Uterus is anteverted and normal in size at 10.5 x 6.0 x 4.3 cm. The myometrium is heterogeneous. ? The endometrium measures 25.6 mm combined thickness.? On Doppler ultrasound, endometrium has increased vascularity.? Cervix is thickened and demonstrates no vascularity, probably caused by a clot. ? Ovaries:? The right ovary is not visualized. The left ovary measures 4.1 x 2.1 x 2.0 cm, with a calculated ovarian volume of 9.2 cc. The ovaries have a normal sonographic appearance. Less than 12 follicles can be seen in each ovary.? No adnexal masses are seen. ? Other:? No pathologic free abdominal or pelvic fluid. ? ? IMPRESSION:? ? 1. Enlarged uterus with thickened endometrium which demonstrates increased vascularity.? Cannot rule out retained products of conception. ? 2. Thickened cervix with no vascularity on Doppler ultrasound, probably caused by clot in the endocervical canal. ? 3. Right ovary is not visualized.? Left ovary is grossly normal.? ? ? We strive to produce accurate, complete, and clear reports of imaging services. To assist us in improving patient care, this report was composed using standard report templates and voice recognition software. Therefore, it may contain abnormal punctuation, insertions and/or omissions. Occasional wrong-word or sound-alike substitutions may occur. Though we review the report and make efforts to correct it, we do recommend that the report be read carefully in proper context to recognize any text inaccuracies. ? ? Dictated by: Pam Whitney M.D. on 04/03/2023 at 10:39 ? ? Approved by: Pam Whitney M.D. on 04/03/2023 at 10:54?? MDM Narrative Medical decision making narrative: This is a 28-year-old female who had a chemically induced on 03/30 23 had quite a bit of bleeding cramping and discomfort. Has persisted pelvic cramping is still little bit worse today and bleeding is still persistent although not worse than when it started. Patient's labs do show a hemoglobin was 12 by records at [facility] she is tend today, [place] [id number], she is Rh positive. Normal renal function electrolytes. Pelvic US shows enlarged uterus with thickened endometrium increased vascularity can not rule out retained products, thickened cervix no vascularity likely clot in the endocervical canal right ovary not visualized left ovary grossly normal. No adnexal masses. Patient had a dose of Toradol somewhat helpful but still uncomfortable states she has tolerated things like [place] in the past well. Given a dose here. RH positive not requiring RhoGAM. Patient has been hemodynamically stable in the department. Case discussed with manager sharepoint, Dr. White. She met with patient to discuss options watchful waiting, additional dose of Cytotec versus D&C. Patient elects for D&C. NPO. Patient taken to OR by Dr. White for incomplete miscarriage/retained products. Discharge Plan Departure Patient Disposition: Admitted to Surgery Clinical Impression: Incomplete miscarriage with blood clot Admit Date/Time: 04/03/23 12:28 Admit Provider: Nusrat White
[2023-04-03 10:40] LABS: HCG Quantitative /Beta subunit 5512.8 mIU/mL
[2023-04-03] MEDS: HYDROCODONE/ACET 5/325 TABLET 2 TAB PO (11:06)
--- NOTE | 2023-04-03 12:38 | PM.GYNHP.1 ---
History of Present Illness History of Present Illness Reason for admission: incomplete Narrative: Rosalino Dinh is a 28 year old 4 para 1 female presented to the emergency room after using oral mifepristone for termination who presented to the emergency room in [facility] for bleeding after using the medication on the . She now presents to the ER here for continued bleeding and cramping. Ultrasound showed probable retained products of conception. Patient's hematocrit has decreased from 35-30. Patient was given options continuing to monitor, Cytotec, or suction D&C. Patient has had a suction D&C before and feels that this would be the next best step for her. Patient has gotten on 3 different kinds of control. Patient denies fevers. No headaches. No constipation or diarrhea. No problems with urination. PFSH Medical History Blood per rectum Diabetes mellitus type 2 in obese Diabetes mellitus, new onset Hemorrhoids Hirsutism Hypertension Miscarriage within last 12 months Mixed hyperlipidemia due to type 2 diabetes mellitus Non-insulin dependent diabetes mellitus PCOS (polycystic ovarian syndrome) Pelvic pain Sciatic nerve pain Strep pharyngitis Surveillance of oral contraception, patch, or vaginal ring Tonsillitis Unwanted fertility Uses hormonal contraceptive patch as primary control method Surgical History History of Hx of cholecystectomy Hx of dilation and curettage Family History Grandmother Hypertension Cancer Stroke Grandfather Diabetes mellitus Stroke Social History household members: family Smoking Status: Current some day smoker alcohol intake: current substance use type: does not use Meds Home Medications and Allergies Home Medications Medication Instructions Recorded Confirmed Type naproxen 500 mg tablet 500 mg PO BID PRN 01/15/20 07/19/22 History Glucometer #1 ea 08/22/21 07/19/22 Rx Lancettes #100 ea 08/22/21 07/19/22 Rx glucose test strips #100 ea 08/22/21 07/19/22 Rx lancette device #1 ea 08/22/21 07/19/22 Rx Blood Pressure Cuff - Omron upper #1 ea 10/23/21 07/19/22 Rx arm lisinopril 5 mg tablet 5 mg PO DAILY #90 tabs 10/23/21 07/19/22 Rx calcium carbonate 600 mg calcium 600 mg PO BID #180 tabs 02/01/22 07/19/22 Rx (1,500 mg) tablet (Calcium) cholecalciferol (vitamin D3) 25 25 mcg PO DAILY 02/01/22 07/19/22 History mcg (1,000 unit) capsule iron 125 mg-iron 25 mg (asp tab PO 02/01/22 07/19/22 History gly)-folic acid 1 mg-mvit,min#38 tablet multivitamin with minerals 1 tab PO DAILY 02/01/22 07/19/22 History (Hair,Skin and Nails tablet) vitamin B complex (B 1 tab PO DAILY 02/01/22 07/19/22 History Complex-Vitamin B12 tablet) hydrocodone 5 mg-acetaminophen 325 1 tab PO Q4-6H PRN pain #14 tabs 04/06/22 07/19/22 Rx mg tablet metformin 500 mg tablet,extended 1,000 mg PO BID 30 days #120 tabs 05/16/22 07/19/22 Rx release 24 hr empagliflozin 10 mg tablet 10 mg PO QAM #90 tabs 07/19/22 07/19/22 Rx (Jardiance) metronidazole 1 % topical gel 1 applic topical BEDTIME #60 grams 07/19/22 07/19/22 Rx omega-3 acid ethyl esters 1 gram 1 cap PO BID #180 caps 07/19/22 07/19/22 Rx capsule (Lovaza) rosuvastatin 5 mg tablet 5 mg PO DAILY #90 tabs 07/19/22 07/19/22 Rx spironolactone 100 mg tablet 100 mg PO QAM #90 tabs 07/19/22 07/19/22 Rx valacyclovir 1 gram tablet 1,000 mg PO BID herpes #20 tabs 07/19/22 07/19/22 Rx norelgestromin 150 mcg-e.estradiol 1 patch transdermal QWEEK #12 ea 08/20/22 Rx 35 mcg/24 hr weekly transderm patch (Xulane) Allergies Allergy/AdvReac Type Severity Reaction Status Date / Time propofol Allergy Severe Difficulty Verified 04/03/23 08:39 Breathing Review of Systems Review of Systems Narrative: Patient presented to the emergency room with significant cramping however since she has gotten the pain medicine her cramping has decreased significantly. She has moderate vaginal bleeding. ROS: Yes All systems reviewed with the patient and are negative except as otherwise documented Exam Vital Signs (past 8 hours): - 04/03/23 08:33 04/03/23 11:12 Temperature 97.9 F Pulse Rate 105 H 96 H Respiratory Rate 22 18 Blood Pressure 134/75 136/83 Pulse Oximetry 97 98 Oxygen Delivery Method Room Air Room Air Oxygen Delivery Method Room Air Narrative Exam Narrative: HEENT exam within normal limits. Lungs are clear to auscultation percussion. Heart is regular rate and rhythm no S3-S4 murmurs. No thyromegaly. Abdomen is soft with minimal tenderness. Pelvic exam not performed. Extremities without edema and nontender. Consent form for suction D&C was reviewed with the patient. Minimal risk of reaction to medication or anesthesia, infection, bleeding that could require blood transfusion that she is agreeable to if necessary to save her life, perforation the uterus that could result in damage to internal structures such as bowel, bladder, ureters that could require additional surgery. Consent form signed and questions answered. Objective Imaging US - abdomen: Radiologist's impression: FINDINGS:? Limited examination due to the patient's body habitus. ?? Uterus:? Uterus is anteverted and normal in size at 10.5 x 6.0 x 4.3 cm. The myometrium is heterogeneous. ? The endometrium measures 25.6 mm combined thickness.? On Doppler ultrasound, endometrium has increased vascularity.? Cervix is thickened and demonstrates no vascularity, probably caused by a clot. ? Ovaries:? The right ovary is not visualized. The left ovary measures 4.1 x 2.1 x 2.0 cm, with a calculated ovarian volume of 9.2 cc. The ovaries have a normal sonographic appearance. Less than 12 follicles can be seen in each ovary.? No adnexal masses are seen. ? Other:? No pathologic free abdominal or pelvic fluid. ? ? IMPRESSION:? ? 1. Enlarged uterus with thickened endometrium which demonstrates increased vascularity.? Cannot rule out retained products of conception. ? 2. Thickened cervix with no vascularity on Doppler ultrasound, probably caused by clot in the endocervical canal. ? 3. Right ovary is not visualized.? Left ovary is grossly normal.? ? Labs 04/03/23 09:55 04/03/23 09:55 Labs: Laboratory Results - last 24 hr 04/03/23 04/03/23 04/03/23 09:55 09:55 09:55 WBC 12.7 H RBC 3.75 L Hgb 10.9 L Hct 31.0 L MCV 82.7 MCH 29.1 MCHC 35.1 RDW 13.4 Plt Count 348 Neut % (Auto) 64.5 Lymph % (Auto) 26.0 [place] % (Auto) 6.8 Eos % (Auto) 2.4 Baso % (Auto) 0.3 Neut # (Auto) 8200 H Lymph # (Auto) 3300 [place] # (Auto) 900 Eos # (Auto) 300 Baso # (Auto) 0 Sodium 136 L Potassium 3.9 Chloride 102 Carbon Dioxide 25 BUN 7 Creatinine 0.35 L Estimated GFR > 60 BUN/Creatinine Ratio 20.0 Glucose 206 H Calcium 8.6 Total Bilirubin 0.1 L AST 26 ALT 27 Alkaline Phosphatase 74 Total Protein 7.2 Albumin 3.9 Globulin 3.3 Albumin/Globulin Ratio 1.2 HCG, Quant 5512.8 Blood Type A Positive Assessment & Plan Assessment and plan (1) Incomplete miscarriage with blood clot: Status: Acute Plan Patient will be taken to the operating room when available to perform suction D&C.
--- NOTE | 2023-04-03 12:45 | PM.PREOP ---
Pre-operative Note COVID-19 Criteria for continued procedure: Deterioration of the patient's condition or overall health Interval Note History & Physical reviewed/Exam performed by Physician: Yes Changes to H&P: No
[2023-04-03] MEDS: LACTATED RINGERS 1,000 ML 100 ML IV (12:47)
--- NOTE | 2023-04-03 19:11 | PM.OP.1 ---
Operative Date/Time/Diagnoses Date of procedure: 04/03/23 Time of procedure: 19:12 Pre-op diagnosis: Incomplete miscarriage Post-op diagnosis: same Procedure & Clinicians Procedure: Suction D&C Same procedure as scheduled: Yes Indications: Incomplete miscarriage Surgeon: Nusrat White Click Yes if Unassisted: Yes Anesthesia Type: General Operative Notes Findings: Dilated cervix with retained products conception Closure Type: not applicable Specimen(s): other (Retained products of conception) Estimated Blood Loss (mL): 250 Blood products transfused: none Procedure in detail: Patient was brought to the operating room where she underwent general anesthesia. She was prepped and draped in the usual sterile fashion in [facility]. She would urinated just prior to coming to the OR. Antibiotics were not indicated. A preop checklist was reviewed prior to beginning the case. A single-tooth tenaculum was placed on the anterior lip of the cervix. The cervix was found to be dilated to at least a # 8 Hegar dilator. A 7 suction curette was placed in the uterus and tissue was removed. Sharp curette was performed. This was repeated x2 until all of the tissue appeared to be removed. The single-tooth tenaculum was removed and the patient went to recovery room. Counts of instruments and sponges were correct. Complications: none Post-operative Condition: stable Disposition: same day surgery Plan for aftercare: Home when awake and stable. Follow-up in 2 weeks.
--- NOTE | 2023-04-03 19:16 | SUR.OPER ---
Lithotomy on padded OR bed, head on pillow, arms secured on padded arm boards at <90 degrees abduction. Legs secured in padded yellow fins stirrups.
[2023-04-03] MEDS: ALBUTEROL 2.5 MG/3 ML NEB (ADULT) INH (19:30)
--- NOTE | 2023-04-03 20:14 | SUR.PHASEI ---
Patient diaphoretic and still needs oxygen at 3 liters via simple mask due to inability to keep oxygen saturation above 90%. Encouraged deep breathing. Cool cloth provided. Recheck of андрей pad exhibits no new bleeding.
[2023-04-03] MEDS: ONDANSETRON 4 MG/2 ML INJ IV ×2 (20:19→20:55)
--- NOTE | 2023-04-03 20:26 | SUR.PHASEI ---
Incentive spirometry initiated; only 500 noted.
--- NOTE | 2023-04-03 20:40 | SUR.PHASEI ---
Anesthesiologist at bedside to re-assess; lungs CTA;
== END 2023-04-03 21:31 | disposition home or self-care (01) ==
LOC: ED 12:26 → AC 12:29
PROVIDERS: Admitting Provider Specialist; Emergency Provider Emergency Medicine; PCP Nurse Practitioner; Referring Provider Emergency Medicine; Visit Provider Specialist
PROC: (CPT 58120; principal; 2023-04-03 17:30)
DX: O03.4 Incomplete spontaneous abortion without complication (principal); O03.2 Embolism following incomplete spontaneous abortion; I10 Essential (primary) hypertension; E11.9 Type 2 diabetes mellitus without complications; E66.9 Obesity, unspecified; F17.200 Nicotine dependence, unspecified, uncomplicated; Z79.84 Long term (current) use of oral hypoglycemic drugs
CPT/HCPCS: 59812; 36415; 76830; 76856; 80053; 82962; 84702; 85025; 86900; 86901; 93975; 96361; 96374; 96375; 99221; 99284; G0378; J1100; J1885; J2250; J2405; J2704; J3010; J7613

== ENCOUNTER 2023-04-11 12:24 | Inpatient (IN) | payer OTHER, MEDICAID, SELFPAY ==
[2023-04-11] VITALS (7 sets, daily range): BP systolic 98–134; BP diastolic 60–78; PULSE 83–113; RESP 16–22; TEMP 36.1–36.9; O2SAT 93–96; BMI 38.3
[2023-04-11] MEDS: ONDANSETRON 4 MG/2 ML INJ IV ×3 (12:37→20:07)
[2023-04-11 12:51] LABS: Add Manual Diff / Slide Review NO; Basophils Absolute Auto 100 /uL (0-100); Basophils Percent Auto 0.4 % (0-2); Eosinophils Absolute Auto 0 /uL (0-450); Eosinophils Percent Auto 0.2 % (2-4); Hematocrit 35.7 % (36-46); Hemoglobin 12.1 g/dL (12.0-16.0); Lymphocytes Absolute Auto 2100 /uL (1100-4500); Lymphocytes Percent Auto 10.3 % (25-40); Mean Corpuscular HGB Conc 33.8 % (30-36); Mean Corpuscular Volume 82.9 fL (80-100); Monocytes Absolute Auto 800 /uL (0-900); Monocytes Percent Auto 4.1 % (3-14); Neutrophils Absolute Auto 17300 /uL (1500-7000); Platelet Count 481 X10^3/uL (150-400); Red Blood Cell Count 4.31 X10^6/uL (4.0-5.2); Red Cell Distribution Width 13.8 % (11.6-14.8); White Blood Cell Count 20.4 X10^3/uL (4.5-11.0)
--- NOTE | 2023-04-11 13:03 | DI.CT.S_ITS ---
PROCEDURE: CT ABDOMEN PELVIS W CON INDICATIONS: Recent D and C, concern for retained product and infection TECHNIQUE: After the administration of intravenous contrast, axial sections acquired from the lung bases to the pubic symphysis. Coronal and sagittal reformats were performed. For radiation dose reduction, the following was used: automated exposure control, adjustment of mA and/or kV according to patient size. COMPARISON: [facility], CT, CT ABDOMEN PELVIS W CON, 04/06/2022, 10:55. FINDINGS: Image quality: Excellent. Lung bases: Unremarkable. Heart: No significant findings. ABDOMEN: Liver: Mild diffuse hepatic steatosis. No focal liver lesion. Gallbladder: Unremarkable. Biliary ducts: Unremarkable. Pancreas: Unremarkable. Spleen: Unremarkable. Adrenal Glands: Unremarkable. Kidneys and Ureters: Unremarkable. Stomach and Bowel: The colon is unremarkable. The terminal ileum demonstrates wall thickening and wall edema. There are multiple loops of ileum which have diffuse wall thickening and inflammatory change in the adjacent fat. Consider infectious versus inflammatory ileitis. Consider Crohn's disease. Bowel ischemia unlikely in this age group. Peritoneum: There is mild abdominal and pelvic ascites secondary to be inflammatory bowel process. Ventral Wall: No hernias. Abdominal Nodes: No retroperitoneal or mesenteric adenopathy by size criteria. Vessels: Aorta and inferior vena cava are normal in size. PELVIS: Pelvic Organs: Unremarkable. Bladder: Unremarkable. Pelvic Nodes: No enlarged lymph nodes. Miscellaneous: No hernias are seen. Bones: Unremarkable. IMPRESSION: 1. Extensive abnormal process involving the ileum. Wall thickening and edema. Surrounding inflammatory change in the adjacent fat. Associated ascites. 2. Mild diffuse hepatic steatosis. Comment: Consider infectious versus inflammatory ileitis. Consider Crohn's disease. Ischemic bowel is unlikely in this age group. Dictated by: Alexi Torres M.D. on 04/11/2023 at 13:30 Approved by: Alexi Torres M.D. on 04/11/2023 at 13:35
[2023-04-11 13:05] LABS: Alanine Aminotransferase 24 IU/L (<35); Albumin 4.5 g/dL (3.5-5.0); Albumin Globulin Ratio 1.2 (1.0-2.8); Alkaline Phosphatase 94 U/L (38-126); Aspartate Aminotransferase 19 IU/L (14-36); Bilirubin Total 0.4 mg/dL (0.2-1.3); Blood Urea Nitrogen 8 mg/dL (7-17); Calcium 9.4 mg/dL (8.4-10.2); Carbon Dioxide 25 mmol/L (22-32); Chloride 100 mmol/L (98-107); Estimated Glomerular Filt Rate > 60 mL/min (>60); Globulin 3.9 g/dL (1.7-4.1); Glucose 201 mg/dL (70-100); HEMOLYSIS < 15 (0-50); Lipase 40 U/L (23-300); Potassium 4.2 mmol/L (3.4-5.1); Sodium 136 mmol/L (137-145); Total Protein 8.4 g/dL (6.3-8.2)
[2023-04-11 13:23] LABS: Lactate (Lactic Acid) 1.4 mmol/L (0.7-2.1)
--- NOTE | 2023-04-11 13:25 | ED.ABDPAIN ---
HPI - Abdominal Pain <ROCKY Gastelum - Last Filed: 04/11/23 15:56> General Chief Complaint: Abdominal Pain Stated Complaint: ABD pain Time Seen by Provider: 04/11/23 13:02 Source: patient Mode of arrival: Ambulatory History of Present Illness HPI narrative: This is a 28-year-old female who was diagnosed with an incomplete miscarriage with a blood clot on 04/03/2023 and had a D&C by Dr. White on the same day at 19:00. Patient presents to the emergency department today for sharp mid abdominal pain, vomiting, feeling horrible, chills, states still having bloody vaginal discharge but denies any change to this and denies it being significantly heavy. She denies urinary or stool changes, denies dysuria or urinary frequency. She complains of periumbilical sharp pain. States that she has had chills, feeling hot and cold, vomiting with constant nausea. States that she has not been able to keep anything down today. Related Data Home Medications Medication Instructions Recorded Confirmed naproxen 500 mg tablet 500 mg PO BID PRN Pain (Scale 01/15/20 04/11/23 Score 1-3) cholecalciferol (vitamin D3) 25 25 mcg PO DAILY 02/01/22 04/11/23 mcg (1,000 unit) capsule multivitamin with minerals 1 tab PO DAILY 02/01/22 04/11/23 (Hair,Skin and Nails tablet) vitamin B complex (B 1 tab PO DAILY 02/01/22 04/11/23 Complex-Vitamin B12 tablet) Previous Rx's Medication Instructions Recorded Glucometer #1 ea 08/22/21 Lancettes #100 ea 08/22/21 glucose test strips #100 ea 08/22/21 lancette device #1 ea 08/22/21 Blood Pressure Cuff - Omron upper #1 ea 10/23/21 arm lisinopril 5 mg tablet 5 mg PO DAILY #90 tabs 10/23/21 calcium carbonate 600 mg calcium 600 mg PO BID #180 tabs 02/01/22 (1,500 mg) tablet (Calcium) metformin 500 mg tablet,extended 1,000 mg PO BID 30 days #120 tabs 05/16/22 release 24 hr empagliflozin 10 mg tablet 10 mg PO QAM #90 tabs 07/19/22 (Jardiance) omega-3 acid ethyl esters 1 gram 1 cap PO BID #180 caps 07/19/22 capsule (Lovaza) rosuvastatin 5 mg tablet 5 mg PO DAILY #90 tabs 07/19/22 spironolactone 100 mg tablet 100 mg PO QAM #90 tabs 07/19/22 valacyclovir 1 gram tablet 1,000 mg PO BID herpes #20 tabs 07/19/22 norelgestromin 150 mcg-e.estradiol 1 patch transdermal QWEEK #12 ea 08/20/22 35 mcg/24 hr weekly transderm patch (Xulane) oxycodone 5 mg tablet 5 mg PO Q4H PRN pain #10 tabs 04/03/23 Allergies Allergy/AdvReac Type Severity Reaction Status Date / Time propofol Allergy Severe Difficulty Verified 04/11/23 12:26 Breathing Review of Systems <ROCKY Gastelum - Last Filed: 04/11/23 15:56> Review of Systems ROS Unobtainable: All systems reviewed & are unremarkable except as noted in HPI and below Patient History <ROCKY Gastelum - Last Filed: 04/11/23 15:56> Medical History Blood per rectum Diabetes mellitus type 2 in obese Diabetes mellitus, new onset Hemorrhoids Hirsutism Hypertension Miscarriage within last 12 months Mixed hyperlipidemia due to type 2 diabetes mellitus Non-insulin dependent diabetes mellitus PCOS (polycystic ovarian syndrome) Pelvic pain Sciatic nerve pain Strep pharyngitis Surveillance of oral contraception, patch, or vaginal ring Tonsillitis Unwanted fertility Uses hormonal contraceptive patch as primary control method Surgical History History of Hx of dilation and curettage Family History Grandmother Hypertension Cancer Stroke Grandfather Diabetes mellitus Stroke Social History household members: family Smoking Status: Never smoker alcohol intake: current substance use type: does not use Smoking Status: Smoker, status unknown alcohol intake frequency: holidays/special occasions only Substance Use Type: marijuana Exam <ROCKY Gastelum - Last Filed: 04/11/23 15:56> Narrative Exam Narrative: Reviewed vitals signs and nursing notes. General: Pleasant, sitting upright in chair, appears to be in distress, is holding an emesis bag, using an ice pack to cool her head, afebrile HEENT: symmetrical facial expressions, moist mucous membranes, neck is supple CV: Tachycardic rate and regular rhythm, warm extremities Respiratory: normal work of breathing, without tachypnea or hypoxia. GI: abdomen soft, nondistended, with generalized tenderness especially in the periumbilical region MSK: moves all extremities, no weakness, normal tone Skin: brisk capillary refill, without rash or wound Neuro: clear speech and normal cognition, A&O x3, GCS 15, no focal motor or sensation deficits Initial Vital Signs Initial Vital Signs: Vital Signs Temperature 98.4 F 04/11/23 12:26 Pulse Rate 113 H 04/11/23 12:26 Respiratory Rate 16 04/11/23 12:26 Blood Pressure 123/75 04/11/23 12:26 Pulse Oximetry 93 04/11/23 12:26 Oxygen Delivery Method Room Air 04/11/23 12:26 <Kavita Damon MD - Last Filed: 04/11/23 19:40> Initial Vital Signs Initial Vital Signs: Vital Signs Temperature 98.4 F 04/11/23 12:26 Pulse Rate 113 H 04/11/23 12:26 Respiratory Rate 16 04/11/23 12:26 Blood Pressure 123/75 04/11/23 12:26 Pulse Oximetry 93 04/11/23 12:26 Oxygen Delivery Method Room Air 04/11/23 12:26 Course <ROCKY Gastelum - Last Filed: 04/11/23 15:56> Orders Ordered: ED Orders 04/11/23 12:39 Complete Blood Count AUTO DIFF Stat Comprehensive Metabolic Panel Stat Lactate (Lactic Acid) Stat Lipase Stat 04/11/23 13:03 CT abdomen pelvis w con Stat 04/11/23 13:33 Blood Culture Stat Acetaminophen (Acetaminophen 325 Mg Tablet) 650 mg PO Q6H PRN PRN Reason: Fever/Mild Pain (1-3) Atorvastatin Calcium (Atorvastatin 20 Mg Tablet) 10 mg PO DAILY [facility] Dextrose (Dextrose 50 % In Water 25 Gm/50 Ml Syringe) 25 gm IV PRN PRN PRN Reason: Hypoglycemia Hydromorphone HCl (Hydromorphone 0.5 Mg Inj) 0.5 mg IV Q2H PRN PRN Reason: Pain, Severe (7-10) Last Admin: 04/11/23 17:58 Dose: 0.5 mg Documented By: AAMIR Sodium Chloride (Normal Saline 0.9%) 1,000 mls @ 125 mls/hr IV CONT [facility] Stop: 04/12/23 03:14 Last Admin: 04/11/23 15:55 Dose: 125 mls/hr Documented By: AAMIR Piperacillin Sod/Tazobactam (Sod 3.375 gm/ Sodium Chloride) 100 mls @ 25 mls/hr IV Q8H [facility] Insulin Human Regular (Insulin Regular 100 Unit/Ml 3 Ml Vial) 0 unit SUBCUT Q6H [facility]; Protocol Last Admin: 04/11/23 16:36 Dose: Not Given Documented By: AAMIR Melatonin (Melatonin 3 Mg Tablet) 6 mg PO BEDTIME PRN PRN Reason: Insomnia Mesalamine (Mesalamine 400 Mg Cap.Drtab.) 1,200 mg PO TID [facility] Last Admin: 04/11/23 16:36 Dose: 1,200 mg Documented By: AAMIR Methylprednisolone (Methylprednisolone 125 Mg/2 Ml Vial) 60 mg IV Q12H [facility] Naloxone HCl (Naloxone 0.4 Mg/Ml Vial) 0.2 mg IV Q2MIN PRN PRN Reason: Opiate Reversal Naproxen (Naproxen 250 Mg Tablet) 500 mg PO BID PRN PRN Reason: Pain (Scale Score 1-3) Ondansetron HCl (Ondansetron 4 Mg/2 Ml Inj) 4 mg IV NOW PRN PRN Reason: Nausea And Vomiting Last Admin: 04/11/23 12:37 Dose: 4 mg Documented By: GINA Ondansetron HCl (Ondansetron 4 Mg/2 Ml Inj) 4 mg IV Q4HR [facility] Last Admin: 04/11/23 16:37 Dose: 4 mg Documented By: AAMIR Oxycodone HCl (Oxycodone Ir 5 Mg Tablet) 5 mg PO Q4H PRN PRN Reason: pain Spironolactone (Spironolactone 25 Mg Tablet) 100 mg PO DAILY [facility] Discontinued Medications Hydromorphone HCl (Hydromorphone 0.5 Mg Inj) 0.5 mg IV NOW ONE Stop: 04/11/23 13:37 Last Admin: 04/11/23 13:40 Dose: 0.5 mg Documented By: CHIKIS Lactated Ringer's (Lactated Ringers) 1,000 mls @ 1,000 mls/hr IV BOLUS ONE Stop: 04/11/23 14:02 Last Infusion: 04/11/23 15:01 Dose: 0 mls/hr Documented By: Admin: 04/11/23 13:36 Dose: 1,000 mls/hr Documented By: CHIKIS Cefotetan Disodium 2 gm/ (Sodium Chloride) 100 mls @ 200 mls/hr IV NOW ONE Stop: 04/11/23 13:40 Last Admin: 04/11/23 16:29 Dose: Not Given Documented By: AAMIR Doxycycline Hyclate 100 mg/ (Sodium Chloride) 100 mls @ 100 mls/hr IV NOW ONE Stop: 04/11/23 13:40 Last Admin: 04/11/23 16:29 Dose: Not Given Documented By: AAMIR Ceftriaxone Sodium 2,000 mg/ (Sodium Chloride) 100 mls @ 200 mls/hr IV NOW ONE Stop: 04/11/23 13:57 Last Infusion: 04/11/23 15:09 Dose: 0 mls/hr Documented By: Admin: 04/11/23 15:07 Dose: 200 mls/hr Documented By: BARRY Lactated Ringer's (Lactated Ringers) 1,000 mls @ 1,000 mls/hr IV BOLUS ONE Stop: 04/11/23 14:59 Last Infusion: 04/11/23 15:08 Dose: 0 mls/hr Documented By: Admin: 04/11/23 15:07 Dose: 1,000 mls/hr Documented By: SPF Sodium Chloride (Normal Saline 0.9%) 1,000 mls @ 100 mls/hr IV CONT [facility] Stop: 04/12/23 02:59 Last Admin: 04/11/23 16:29 Dose: Not Given Documented By: AAMIR Piperacillin Sod/Tazobactam (Sod 4.5 gm/ Sodium Chloride) 100 mls @ 200 mls/hr IV NOW ONE Stop: 04/11/23 15:59 Last Infusion: 04/11/23 16:39 Dose: 0 mls/hr Documented By: Admin: 04/11/23 15:56 Dose: 200 mls/hr Documented By: AAMIR Piperacillin Sod/Tazobactam (Sod 3.375 gm/ Sodium Chloride) 100 mls @ 25 mls/hr IV Q8H [facility] Insulin Human Lispro (Insulin Lispro 100 Unit/Ml 3ml Vial) 0 unit SUBCUT ACHS [facility]; Protocol Magnesium Chloride (Magnesium Chloride 64 Mg Tablet) 128 mg PO NOW ONE Stop: 04/11/23 16:31 Last Admin: 04/11/23 16:35 Dose: 128 mg Documented By: MM Methylprednisolone (Methylprednisolone 125 Mg/2 Ml Vial) 125 mg IV NOW ONE Stop: 04/11/23 14:25 Last Admin: 04/11/23 15:05 Dose: 125 mg Documented By: SPF Methylprednisolone (Methylprednisolone 125 Mg/2 Ml Vial) 60 mg IV Q12H [facility] Last Admin: 04/11/23 16:29 Dose: Not Given Documented By: AAMIR Nf - Empagliflozin [ Jardiance] 10 Mg Tablet 10 mg PO DAILY [facility] Ondansetron HCl (Ondansetron 4 Mg/2 Ml Inj) 4 mg IV NOW ONE Stop: 04/11/23 13:04 Last Admin: 04/11/23 14:58 Dose: Not Given Documented By: BRIANA Vital Signs Vital signs: Vital Signs - 8 hr 04/11/23 12:26 04/11/23 14:15 04/11/23 14:18 Temperature 98.4 F Pulse Rate 113 H 83 96 H Respiratory Rate 16 18 Blood Pressure 123/75 128/63 Pulse Oximetry 93 95 96 Oxygen Delivery Method Room Air Room Air 04/11/23 14:30 04/11/23 14:30 Temperature Pulse Rate 93 H Respiratory Rate Blood Pressure 127/60 Pulse Oximetry 95 Oxygen Delivery Method <Kavita Damon MD - Last Filed: 04/11/23 19:40> Orders Ordered: ED Orders 04/11/23 12:39 Complete Blood Count AUTO DIFF Stat Comprehensive Metabolic Panel Stat Lactate (Lactic Acid) Stat Lipase Stat 04/11/23 13:03 CT abdomen pelvis w con Stat 04/11/23 13:33 Blood Culture Stat Acetaminophen (Acetaminophen 325 Mg Tablet) 650 mg PO Q6H PRN PRN Reason: Fever/Mild Pain (1-3) Atorvastatin Calcium (Atorvastatin 20 Mg Tablet) 10 mg PO DAILY [facility] Dextrose (Dextrose 50 % In Water 25 Gm/50 Ml Syringe) 25 gm IV PRN PRN PRN Reason: Hypoglycemia Hydromorphone HCl (Hydromorphone 0.5 Mg Inj) 0.5 mg IV Q2H PRN PRN Reason: Pain, Severe (7-10) Last Admin: 04/11/23 17:58 Dose: 0.5 mg Documented By: AAMIR Sodium Chloride (Normal Saline 0.9%) 1,000 mls @ 125 mls/hr IV CONT [facility] Stop: 04/12/23 03:14 Last Admin: 04/11/23 15:55 Dose: 125 mls/hr Documented By: AAMIR Piperacillin Sod/Tazobactam (Sod 3.375 gm/ Sodium Chloride) 100 mls @ 25 mls/hr IV Q8H [facility] Insulin Human Regular (Insulin Regular 100 Unit/Ml 3 Ml Vial) 0 unit SUBCUT Q6H [facility]; Protocol Last Admin: 04/11/23 16:36 Dose: Not Given Documented By: AAMIR Melatonin (Melatonin 3 Mg Tablet) 6 mg PO BEDTIME PRN PRN Reason: Insomnia Mesalamine (Mesalamine 400 Mg Cap.Drtab.) 1,200 mg PO TID [facility] Last Admin: 04/11/23 16:36 Dose: 1,200 mg Documented By: AAMIR Methylprednisolone (Methylprednisolone 125 Mg/2 Ml Vial) 60 mg IV Q12H [facility] Naloxone HCl (Naloxone 0.4 Mg/Ml Vial) 0.2 mg IV Q2MIN PRN PRN Reason: Opiate Reversal Naproxen (Naproxen 250 Mg Tablet) 500 mg PO BID PRN PRN Reason: Pain (Scale Score 1-3) Ondansetron HCl (Ondansetron 4 Mg/2 Ml Inj) 4 mg IV NOW PRN PRN Reason: Nausea And Vomiting Last Admin: 04/11/23 12:37 Dose: 4 mg Documented By: GINA Ondansetron HCl (Ondansetron 4 Mg/2 Ml Inj) 4 mg IV Q4HR [facility] Last Admin: 04/11/23 16:37 Dose: 4 mg Documented By: AAMIR Oxycodone HCl (Oxycodone Ir 5 Mg Tablet) 5 mg PO Q4H PRN PRN Reason: pain Spironolactone (Spironolactone 25 Mg Tablet) 100 mg PO DAILY [facility] Discontinued Medications Hydromorphone HCl (Hydromorphone 0.5 Mg Inj) 0.5 mg IV NOW ONE Stop: 04/11/23 13:37 Last Admin: 04/11/23 13:40 Dose: 0.5 mg Documented By: CHIKIS Lactated Ringer's (Lactated Ringers) 1,000 mls @ 1,000 mls/hr IV BOLUS ONE Stop: 04/11/23 14:02 Last Infusion: 04/11/23 15:01 Dose: 0 mls/hr Documented By: Admin: 04/11/23 13:36 Dose: 1,000 mls/hr Documented By: CHKIIS Cefotetan Disodium 2 gm/ (Sodium Chloride) 100 mls @ 200 mls/hr IV NOW ONE Stop: 04/11/23 13:40 Last Admin: 04/11/23 16:29 Dose: Not Given Documented By: AAMIR Doxycycline Hyclate 100 mg/ (Sodium Chloride) 100 mls @ 100 mls/hr IV NOW ONE Stop: 04/11/23 13:40 Last Admin: 04/11/23 16:29 Dose: Not Given Documented By: AAMIR Ceftriaxone Sodium 2,000 mg/ (Sodium Chloride) 100 mls @ 200 mls/hr IV NOW ONE Stop: 04/11/23 13:57 Last Infusion: 04/11/23 15:09 Dose: 0 mls/hr Documented By: Admin: 04/11/23 15:07 Dose: 200 mls/hr Documented By: BARRY Lactated Ringer's (Lactated Ringers) 1,000 mls @ 1,000 mls/hr IV BOLUS ONE Stop: 04/11/23 14:59 Last Infusion: 04/11/23 15:08 Dose: 0 mls/hr Documented By: Admin: 04/11/23 15:07 Dose: 1,000 mls/hr Documented By: SPF Sodium Chloride (Normal Saline 0.9%) 1,000 mls @ 100 mls/hr IV CONT [facility] Stop: 04/12/23 02:59 Last Admin: 04/11/23 16:29 Dose: Not Given Documented By: AAMIR Piperacillin Sod/Tazobactam (Sod 4.5 gm/ Sodium Chloride) 100 mls @ 200 mls/hr IV NOW ONE Stop: 04/11/23 15:59 Last Infusion: 04/11/23 16:39 Dose: 0 mls/hr Documented By: Admin: 04/11/23 15:56 Dose: 200 mls/hr Documented By: AAMIR Piperacillin Sod/Tazobactam (Sod 3.375 gm/ Sodium Chloride) 100 mls @ 25 mls/hr IV Q8H [facility] Insulin Human Lispro (Insulin Lispro 100 Unit/Ml 3ml Vial) 0 unit SUBCUT ACHS [facility]; Protocol Magnesium Chloride (Magnesium Chloride 64 Mg Tablet) 128 mg PO NOW ONE Stop: 04/11/23 16:31 Last Admin: 04/11/23 16:35 Dose: 128 mg Documented By: AAMIR Methylprednisolone (Methylprednisolone 125 Mg/2 Ml Vial) 125 mg IV NOW ONE Stop: 04/11/23 14:25 Last Admin: 04/11/23 15:05 Dose: 125 mg Documented By: BARRY Methylprednisolone (Methylprednisolone 125 Mg/2 Ml Vial) 60 mg IV Q12H [facility] Last Admin: 04/11/23 16:29 Dose: Not Given Documented By: AAMIR Nf - Empagliflozin [ Jardiance] 10 Mg Tablet 10 mg PO DAILY [facility] Ondansetron HCl (Ondansetron 4 Mg/2 Ml Inj) 4 mg IV NOW ONE Stop: 04/11/23 13:04 Last Admin: 04/11/23 14:58 Dose: Not Given Documented By: BRIANA Vital Signs Vital signs: Vital Signs - 8 hr 04/11/23 12:26 04/11/23 14:15 04/11/23 14:18 Temperature 98.4 F Pulse Rate 113 H 83 96 H Respiratory Rate 16 18 Blood Pressure 123/75 128/63 Pulse Oximetry 93 95 96 Oxygen Delivery Method Room Air Room Air 04/11/23 14:30 04/11/23 14:30 Temperature Pulse Rate 93 H Respiratory Rate Blood Pressure 127/60 Pulse Oximetry 95 Oxygen Delivery Method MDM - Abdominal Pain <ROCKY Gastelum - Last Filed: 04/11/23 15:56> Lab Data 04/11/23 12:39 04/11/23 12:39 Labs: Lab Results 04/11/23 04/11/23 04/11/23 Range/Units 12:39 12:39 12:39 WBC 20.4 H (4.5-11.0) X10^3/uL RBC 4.31 (4.0-5.2) X10^6/uL Hgb 12.1 (12.0-16.0) g/dL Hct 35.7 L (36-46) % MCV 82.9 (80-100) fL MCH 28.0 (26-34) PG MCHC 33.8 (30-36) % RDW 13.8 (11.6-14.8) % Plt Count 481 H (150-400) X10^3/uL Neut % (Auto) 85.0 H (50-75) % Lymph % (Auto) 10.3 L (25-40) % Rooks % (Auto) 4.1 (3-14) % Eos % (Auto) 0.2 L (2-4) % Baso % (Auto) 0.4 (0-2) % Neut # (Auto) 33947 H (9575-1131) /uL Lymph # (Auto) 2100 (0027-4274) /uL Rooks # (Auto) 800 (0-900) /uL Eos # (Auto) 0 (0-450) /uL Baso # (Auto) 100 (0-100) /uL Sodium 136 L (137-145) mmol/L Potassium 4.2 (3.4-5.1) mmol/L Chloride 100 (98-107) mmol/L Carbon Dioxide 25 (22-32) mmol/L BUN 8 (7-17) mg/dL Creatinine 0.50 L (0.52-1.04) mg/dL Estimated GFR > 60 (>60) mL/min BUN/Creatinine Ratio 16.0 (6-22) Glucose 201 H (70-100) mg/dL Lactate 1.4 (0.7-2.1) mmol/L Calcium 9.4 (8.4-10.2) mg/dL Magnesium (1.6-2.3) mg/dL Total Bilirubin 0.4 (0.2-1.3) mg/dL AST 19 (14-36) IU/L ALT 24 (<35) IU/L Alkaline Phosphatase 94 (38-126) U/L Total Protein 8.4 H (6.3-8.2) g/dL Albumin 4.5 (3.5-5.0) g/dL Globulin 3.9 (1.7-4.1) g/dL Albumin/Globulin Ratio 1.2 (1.0-2.8) Lipase 40 (23-300) U/L Procalcitonin (<0.5) ng/mL 04/11/23 04/11/23 Range/Units 12:39 12:39 WBC (4.5-11.0) X10^3/uL RBC (4.0-5.2) X10^6/uL Hgb (12.0-16.0) g/dL Hct (36-46) % MCV (80-100) fL MCH (26-34) PG MCHC (30-36) % RDW (11.6-14.8) % Plt Count (150-400) X10^3/uL Neut % (Auto) (50-75) % Lymph % (Auto) (25-40) % Rooks % (Auto) (3-14) % Eos % (Auto) (2-4) % Baso % (Auto) (0-2) % Neut # (Auto) (6212-9997) /uL Lymph # (Auto) (9931-4980) /uL Rooks # (Auto) (0-900) /uL Eos # (Auto) (0-450) /uL Baso # (Auto) (0-100) /uL Sodium (137-145) mmol/L Potassium (3.4-5.1) mmol/L Chloride (98-107) mmol/L Carbon Dioxide (22-32) mmol/L BUN (7-17) mg/dL Creatinine (0.52-1.04) mg/dL Estimated GFR (>60) mL/min BUN/Creatinine Ratio (6-22) Glucose (70-100) mg/dL Lactate (0.7-2.1) mmol/L Calcium (8.4-10.2) mg/dL Magnesium 1.7 (1.6-2.3) mg/dL Total Bilirubin (0.2-1.3) mg/dL AST (14-36) IU/L ALT (<35) IU/L Alkaline Phosphatase (38-126) U/L Total Protein (6.3-8.2) g/dL Albumin (3.5-5.0) g/dL Globulin (1.7-4.1) g/dL Albumin/Globulin Ratio (1.0-2.8) Lipase (23-300) U/L Procalcitonin 0.06 (<0.5) ng/mL Point of care testing: Urine Dip Bedside Urine Glucose 1000 mg/dl Bedside Urine Bilirubin - Negative Bedside Urine Ketone - Negative Urine Specific [place] 1.030 Bedside Urine Occult Blood + Bedside Urine pH 6.0 Bedside Urine Protein - Negative Bedside Urine Urobilinogen - Negative Bedside Urine Nitrite - Negative Bedside Urine Leukocytes - Negative Esterase Imaging Data CT scan - abdomen/pelvis: Radiologist's Impression: PROCEDURE:? CT ABDOMEN PELVIS W CON ? INDICATIONS:? Recent D and C, concern for retained product and infection ? TECHNIQUE:? After the administration of intravenous contrast, axial sections acquired from the lung bases to the pubic symphysis.? Coronal and sagittal reformats were performed.? For radiation dose reduction, the following was used:? automated exposure control, adjustment of mA and/or kV according to patient size.? ? COMPARISON:? [facility], CT, CT ABDOMEN PELVIS W CON, 04/06/2022, 10:55. ? FINDINGS:? Image quality:? Excellent.? ? Lung bases:? Unremarkable. Heart:? No significant findings. ? ABDOMEN: Liver:? Mild diffuse hepatic steatosis.? No focal liver lesion. Gallbladder:? Unremarkable.? ? Biliary ducts:? Unremarkable.? ? Pancreas:? Unremarkable.? ? Spleen:? Unremarkable.? ? Adrenal Glands:? Unremarkable.? ? Kidneys and Ureters:? Unremarkable.? ? ? Stomach and Bowel:? The colon is unremarkable.? The terminal ileum demonstrates wall thickening and wall edema.? There are multiple loops of ileum which have diffuse wall thickening and inflammatory change in the adjacent fat.? Consider infectious versus inflammatory ileitis.? Consider Crohn's disease.? Bowel ischemia unlikely in this age group. Peritoneum:? There is mild abdominal and pelvic ascites secondary to be inflammatory bowel process. ? Ventral Wall: ? No hernias.? Abdominal Nodes:? No retroperitoneal or mesenteric adenopathy by size criteria.? Vessels:? Aorta and inferior vena cava are normal in size.? ? PELVIS: Pelvic Organs:? Unremarkable.? ? Bladder:? Unremarkable.? ? Pelvic Nodes: No enlarged lymph nodes.? Miscellaneous: No hernias are seen. ? ? ? Bones:? Unremarkable.? IMPRESSION:? ? 1. Extensive abnormal process involving the ileum.? Wall thickening and edema.? Surrounding inflammatory change in the adjacent fat.? Associated ascites. ? 2. Mild diffuse hepatic steatosis. ? Comment:? Consider infectious versus inflammatory ileitis.? Consider Crohn's disease.? Ischemic bowel is unlikely in this age group. ? ? Dictated by: Alexi Torres M.D. on 04/11/2023 at 13:30 ? ? Approved by: Alexi Torres M.D. on 04/11/2023 at 13:35 ? MDM Narrative Medical decision making narrative: Chief Complaint: abdominal pain and vomiting Multiple etiologies for patient's complaint considered including, but not limited to: Retained products of conception with infection, endometritis, ileitis, colitis, perforated viscus, peritonitis I have independently reviewed the patient's vital signs and nursing notes as well as prior records if available. Plan: CT abdomen pelvis for retained products of conception, colitis, other intra-abdominal source infection Patient's lab work is significant for leukocytosis of 20.4, left shift, without anemia, no significant electrolyte abnormalities, normal lipase and liver enzymes, UA without bacteria or leukocyte esterase Course of Care: Patient's pain was treated with Toradol and hydromorphone, nausea was treated with Zofran, 1 L lactated Ringer's is infusing for tachycardia, dehydration and vomiting, antibiotic therapy was initiated with ceftriaxone and Flagyl after knowledge of source. Ran case by Dr. Fierro with General surgery, he states that he did a colonoscopy of this patient for bright red blood in her stool in the past. States that she likely has a picture presenting for Crohn's. This is undiagnosed at this point. I will treat the patient was methylprednisolone, IV fluids, Toradol and hydromorphone for pain, we will consult hospitalist service for admission. Updated patient on her scan and the plan, discussed with hospitalist Dr. Spaulding who accepts patient for admission to the service for ileitis inflammatory this is infectious. She was treated with ceftriaxone and Flagyl and methylprednisolone 125 mg. She received 2 L of IV fluid, reports that she feels so much better. Will go up to room [address] Fierro will be consulting service as needed. Social considerations that may affect disposition: none Questions are addressed and there is agreement with the plan and for follow-up. I consulted with the ED attending physician Dr. Damon as needed for higher level of care considerations and they were available for discussion and recommendations regarding plan of care and diagnostic testing. <Kavita Damon MD - Last Filed: 04/11/23 19:40> Lab Data Labs: Lab Results 04/11/23 04/11/23 04/11/23 Range/Units 12:39 12:39 12:39 WBC 20.4 H (4.5-11.0) X10^3/uL RBC 4.31 (4.0-5.2) X10^6/uL Hgb 12.1 (12.0-16.0) g/dL Hct 35.7 L (36-46) % MCV 82.9 (80-100) fL MCH 28.0 (26-34) PG MCHC 33.8 (30-36) % RDW 13.8 (11.6-14.8) % Plt Count 481 H (150-400) X10^3/uL Neut % (Auto) 85.0 H (50-75) % Lymph % (Auto) 10.3 L (25-40) % Rooks % (Auto) 4.1 (3-14) % Eos % (Auto) 0.2 L (2-4) % Baso % (Auto) 0.4 (0-2) % Neut # (Auto) 97437 H (8901-9916) /uL Lymph # (Auto) 2100 (0732-5103) /uL Rooks # (Auto) 800 (0-900) /uL Eos # (Auto) 0 (0-450) /uL Baso # (Auto) 100 (0-100) /uL Sodium 136 L (137-145) mmol/L Potassium 4.2 (3.4-5.1) mmol/L Chloride 100 (98-107) mmol/L Carbon Dioxide 25 (22-32) mmol/L BUN 8 (7-17) mg/dL Creatinine 0.50 L (0.52-1.04) mg/dL Estimated GFR > 60 (>60) mL/min BUN/Creatinine Ratio 16.0 (6-22) Glucose 201 H (70-100) mg/dL Lactate 1.4 (0.7-2.1) mmol/L Calcium 9.4 (8.4-10.2) mg/dL Magnesium (1.6-2.3) mg/dL Total Bilirubin 0.4 (0.2-1.3) mg/dL AST 19 (14-36) IU/L ALT 24 (<35) IU/L Alkaline Phosphatase 94 (38-126) U/L Total Protein 8.4 H (6.3-8.2) g/dL Albumin 4.5 (3.5-5.0) g/dL Globulin 3.9 (1.7-4.1) g/dL Albumin/Globulin Ratio 1.2 (1.0-2.8) Lipase 40 (23-300) U/L Procalcitonin (<0.5) ng/mL 04/11/23 04/11/23 Range/Units 12:39 12:39 WBC (4.5-11.0) X10^3/uL RBC (4.0-5.2) X10^6/uL Hgb (12.0-16.0) g/dL Hct (36-46) % MCV (80-100) fL MCH (26-34) PG MCHC (30-36) % RDW (11.6-14.8) % Plt Count (150-400) X10^3/uL Neut % (Auto) (50-75) % Lymph % (Auto) (25-40) % Rooks % (Auto) (3-14) % Eos % (Auto) (2-4) % Baso % (Auto) (0-2) % Neut # (Auto) (6308-5425) /uL Lymph # (Auto) (6424-3609) /uL Rooks # (Auto) (0-900) /uL Eos # (Auto) (0-450) /uL Baso # (Auto) (0-100) /uL Sodium (137-145) mmol/L Potassium (3.4-5.1) mmol/L Chloride (98-107) mmol/L Carbon Dioxide (22-32) mmol/L BUN (7-17) mg/dL Creatinine (0.52-1.04) mg/dL Estimated GFR (>60) mL/min BUN/Creatinine Ratio (6-22) Glucose (70-100) mg/dL Lactate (0.7-2.1) mmol/L Calcium (8.4-10.2) mg/dL Magnesium 1.7 (1.6-2.3) mg/dL Total Bilirubin (0.2-1.3) mg/dL AST (14-36) IU/L ALT (<35) IU/L Alkaline Phosphatase (38-126) U/L Total Protein (6.3-8.2) g/dL Albumin (3.5-5.0) g/dL Globulin (1.7-4.1) g/dL Albumin/Globulin Ratio (1.0-2.8) Lipase (23-300) U/L Procalcitonin 0.06 (<0.5) ng/mL Point of care testing: Urine Dip Bedside Urine Glucose 1000 mg/dl Bedside Urine Bilirubin - Negative Bedside Urine Ketone - Negative Urine Specific [place] 1.030 Bedside Urine Occult Blood + Bedside Urine pH 6.0 Bedside Urine Protein - Negative Bedside Urine Urobilinogen - Negative Bedside Urine Nitrite - Negative Bedside Urine Leukocytes - Negative Esterase Discharge Plan Departure Patient Disposition: Admitted As Inpatient Clinical Impression: Ileitis, History of diabetes mellitus Sepsis Qualifiers: Sepsis acute organ dysfunction status: without acute organ dysfunction Admit Date/Time: 04/11/23 14:45 Admit Provider: Ismael Spaulding <Kavita Damon MD - Last Filed: 04/11/23 19:40> Cosign ED Attending Cosignature Attestation: I was immediately available in the department for consultation throughout this patient's visit. Kavita Damon MD
[2023-04-11] MEDS: LACTATED RINGERS 1,000 ML 1000 ML IV ×2 (13:36→15:07)
[2023-04-11] MEDS: HYDROMORPHONE 0.5 MG INJ IV ×2 (13:40→17:58)
[2023-04-11] MEDS: methylPREDNISolone 125 MG/2 ML VIAL IV (15:05)
[2023-04-11] MEDS: cefTRIAXone 2,000 MG in SODIUM CHLORIDE 0.9% 100 ML 200 MG IV (15:07)
--- NOTE | 2023-04-11 15:32 | P.HP_ITS ---
History of Present Illness History of Present Illness Date Patient Seen: 04/11/23 Time Patient Seen: 17:30 Chief complaint: ABD pain Narrative: Rosalino Dinh is a 28-year-old female with past medical history of type 2 diabetes, hypertension, hyperlipidemia, PCOS, and recent D&C on 04/03 who presents with acute nausea vomiting and abdominal pain. Patient states she had some light vaginally bleeding since her procedure but was otherwise feeling well. She had diarrhea yesterday but that was after starting her metformin back up which she usually gets diarrhea when restarting. She then was awakened from sleep at 0300 this morning with severe stabbing abd pain. She had several bouts of vomiting to the point where she was dry heaving. Patient's had a colonoscopy in the past due to rectal bleeding which showed only internal hemorrhoids which were thought to be the source of bleeding. She denies recurrent diarrhea or bloody stools in the past. In the ED patient found to have severe inflammation of the terminal ileum suggesting possible Crohn's flare. WBC 20. Given dose of solumderol. WBC elevated at 20.4. Given IV abx. PFSH Medical History Blood per rectum Diabetes mellitus type 2 in obese Diabetes mellitus, new onset Hemorrhoids Hirsutism Hypertension Miscarriage within last 12 months Mixed hyperlipidemia due to type 2 diabetes mellitus Non-insulin dependent diabetes mellitus PCOS (polycystic ovarian syndrome) Pelvic pain Sciatic nerve pain Strep pharyngitis Surveillance of oral contraception, patch, or vaginal ring Tonsillitis Unwanted fertility Uses hormonal contraceptive patch as primary control method Surgical History History of Hx of dilation and curettage Family History Grandmother Hypertension Cancer Stroke Grandfather Diabetes mellitus Stroke Social History household members: family Smoking Status: Never smoker alcohol intake: current substance use type: does not use Meds Home Medications and Allergies Home Medications Medication Instructions Recorded Confirmed Type naproxen 500 mg tablet 500 mg PO BID PRN Pain (Scale 01/15/20 04/11/23 History Score 1-3) Glucometer #1 ea 08/22/21 04/11/23 Rx Lancettes #100 ea 08/22/21 04/11/23 Rx glucose test strips #100 ea 08/22/21 04/11/23 Rx lancette device #1 ea 08/22/21 04/11/23 Rx Blood Pressure Cuff - Omron upper #1 ea 10/23/21 04/11/23 Rx arm lisinopril 5 mg tablet 5 mg PO DAILY #90 tabs 10/23/21 04/03/23 Rx calcium carbonate 600 mg calcium 600 mg PO BID #180 tabs 02/01/22 04/11/23 Rx (1,500 mg) tablet (Calcium) cholecalciferol (vitamin D3) 25 25 mcg PO DAILY 02/01/22 04/11/23 History mcg (1,000 unit) capsule multivitamin with minerals 1 tab PO DAILY 02/01/22 04/11/23 History (Hair,Skin and Nails tablet) vitamin B complex (B 1 tab PO DAILY 02/01/22 04/11/23 History Complex-Vitamin B12 tablet) metformin 500 mg tablet,extended 1,000 mg PO BID 30 days #120 tabs 05/16/22 04/11/23 Rx release 24 hr empagliflozin 10 mg tablet 10 mg PO QAM #90 tabs 07/19/22 04/11/23 Rx (Jardiance) omega-3 acid ethyl esters 1 gram 1 cap PO BID #180 caps 07/19/22 04/03/23 Rx capsule (Lovaza) rosuvastatin 5 mg tablet 5 mg PO DAILY #90 tabs 07/19/22 04/11/23 Rx spironolactone 100 mg tablet 100 mg PO QAM #90 tabs 07/19/22 04/11/23 Rx valacyclovir 1 gram tablet 1,000 mg PO BID herpes #20 tabs 07/19/22 04/03/23 Rx norelgestromin 150 mcg-e.estradiol 1 patch transdermal QWEEK #12 ea 08/20/22 04/03/23 Rx 35 mcg/24 hr weekly transderm patch (Xulane) oxycodone 5 mg tablet 5 mg PO Q4H PRN pain #10 tabs 04/03/23 04/11/23 Rx Allergies Allergy/AdvReac Type Severity Reaction Status Date / Time propofol Allergy Severe Difficulty Verified 04/11/23 12:26 Breathing Review of Systems Review of Systems Narrative: All other systems reviewed with the patient and are negative unless otherwise stated. Exam Vital Signs (past 8 hours): - 04/11/23 12:26 04/11/23 14:15 04/11/23 14:18 Temperature 98.4 F Pulse Rate 113 H 83 96 H Respiratory Rate 16 18 Blood Pressure 123/75 128/63 Pulse Oximetry 93 95 96 Oxygen Delivery Method Room Air Room Air 04/11/23 14:30 04/11/23 14:30 04/11/23 15:00 Temperature Pulse Rate 93 H Respiratory Rate Blood Pressure 127/60 134/78 Pulse Oximetry 95 Oxygen Delivery Method 04/11/23 15:00 Temperature Pulse Rate 96 H Respiratory Rate Blood Pressure Pulse Oximetry 95 Oxygen Delivery Method Oxygen Delivery Method Room Air Narrative Exam Narrative: GEN: mild distress due to pain, obese HEENT: moist mucous membranes, PERRL NECK: trachea midline, no JVD CV: tachycardic, no murmurs PULM: clear bilaterally ABD: diffuse abd pain but most notable in RLQ and periumbilical, guarding present EXT: warm and well perfused with no edema NEURO: awake, alert, oriented, no focal deficits Objective Labs 04/11/23 12:39 04/11/23 12:39 Labs: Laboratory Results - last 24 hr 04/11/23 04/11/23 04/11/23 12:39 12:39 12:39 WBC 20.4 H RBC 4.31 Hgb 12.1 Hct 35.7 L MCV 82.9 MCH 28.0 MCHC 33.8 RDW 13.8 Plt Count 481 H Neut % (Auto) 85.0 H Lymph % (Auto) 10.3 L [place] % (Auto) 4.1 Eos % (Auto) 0.2 L Baso % (Auto) 0.4 Neut # (Auto) 13599 H Lymph # (Auto) 2100 [place] # (Auto) 800 Eos # (Auto) 0 Baso # (Auto) 100 Sodium 136 L Potassium 4.2 Chloride 100 Carbon Dioxide 25 BUN 8 Creatinine 0.50 L Estimated GFR > 60 BUN/Creatinine Ratio 16.0 Glucose 201 H Lactate 1.4 Calcium 9.4 Total Bilirubin 0.4 AST 19 ALT 24 Alkaline Phosphatase 94 Total Protein 8.4 H Albumin 4.5 Globulin 3.9 Albumin/Globulin Ratio 1.2 Lipase 40 Assessment & Plan Assessment & Plan narrative: # acute nausea vomiting and abdominal pain -differential includes Crohn's disease or possibly appendicitis given abrupt nature of pain, NV and no bloody diarrhea -Gen surg consulted -IV abx as below -IVF, zofran PRN -start solumedrol IV 60mg BID and mesalamine in case of Crohn's disease flare # acute sepsis -patient with leukocytosis of 20, tachycardia and temp of 100? F -start Zosyn -follow-up blood cultures -chest x-ray and UA negative # type 2 diabetes -q6h blood glucose checks while on clears with regular insulin sliding scale -hold home metformin and Jardiance -check A1c # hypertension -continue home lisinopril # hyperlipidemia -continue home statin # PCOS -continue home spironolactone Code status is full code. DVT prophylaxis with SCDs. Proxy is mother Anusha. I have reviewed home meds and used all available resources to reconcile the home meds. This patient will be admitted as inpatient and will require greater than 2 midnights of hospital time to treat possible Crohn's flare.
--- NOTE | 2023-04-11 15:42 | DI.RAD.S_ITS ---
PROCEDURE: XR CHEST 1V INDICATIONS: sepsis TECHNIQUE: One view of the chest was acquired. COMPARISON: None. FINDINGS: Surgical changes and devices: None. Lungs and pleura: Lungs are clear. No pleural effusions or pneumothorax. Mediastinum: Mediastinal contours appear normal. Heart size is normal. Bones and chest wall: No suspicious bony lesions. Overlying soft tissues appear unremarkable. IMPRESSION: No acute cardiopulmonary disease process. Dictated by: Joan Tatum MD, PhD on 04/11/2023 at 16:11 Approved by: Joan Tatum MD, PhD on 04/11/2023 at 16:11
[2023-04-11 15:50] LABS: Magnesium 1.7 mg/dL (1.6-2.3)
[2023-04-11] MEDS: SODIUM CHLORIDE 0.9% 1,000 ML 125 ML IV (15:55)
[2023-04-11] MEDS: PIPERACILLIN/TAZO 4.5 GM in SODIUM CHLORIDE 0.9% 100 ML IV (15:56)
[2023-04-11 16:08] LABS: Procalcitonin 0.06 ng/mL (<0.5)
[2023-04-11] MEDS: MAGNESIUM CHLORIDE 64 MG TABLET 128 MG PO (16:35)
[2023-04-11] MEDS: MESALAMINE 400 MG CAP.DRTAB. 1200 MG PO ×2 (16:36→20:06)
[2023-04-11 17:35] LABS: Appearance Urine UA CLEAR; Bilirubin Urine UA NEGATIVE (NEGATIVE); Color Urine UA YELLOW; Glucose Urine UA 2+ g/dL (Negative); Ketones Urine UA NEGATIVE (NEGATIVE); Leukocyte Esterase Urine UA NEGATIVE (NEGATIVE); Nitrite Urine UA NEGATIVE (Negative); Occult Blood Urine UA 2+ (Negative); Protein Urine UA NEGATIVE (Negative); Specific Gravity Urine UA 1.015 (1.000-1.035); Urobilinogen Urine UA 0.2 E.U./dL (0.2)
[2023-04-11 17:54] LABS: Bacteria Urine None Seen; Culture Indicated Urine Cult Not Indicated; RBC Urine 1-5/HPF (0-5/HPF); Squamous Epithelial Cell Urine 1-5 /HPF (0-5/HPF); Uric Acid Crystals Urine Moderate; WBC Urine None Seen (0-5/HPF)
--- NOTE | 2023-04-11 19:38 | PM.CALLCOV.1 ---
Call Coverage Note Note Date of Patient Contact: 04/11/23 Time of Patient Contact: 19:39 Narrative of Care Provided: 28-year-old woman admitted to the hospital with abdominal pain. Imaging shows extensive inflammation of the terminal ileum no evidence of hollow viscus perforation or acute appendicitis. Suspect secondary to Crohn's. No peritonitis hemodynamically stable. Agree with plan for steroids and continuation of IV antibiotics. Full consult note to follow.
[2023-04-11] MEDS: INSULIN REGULAR 100 UNIT/ML 3 ML VIAL SUBCUT (20:06)
[2023-04-11] MEDS: MELATONIN 3 MG TABLET 6 MG PO (20:07)
[2023-04-11] MEDS: PIPERACILLIN/TAZO 3.375 GM in SODIUM CHLORIDE 0.9% 100 ML IV (20:07)
--- NOTE | 2023-04-11 20:30 | PM.CN ---
History of Present Illness Consult details Date Patient Seen: 04/11/23 Time Patient Seen: 15:00 Chief complaint: ABD pain Narrative: 28-year-old woman admitted to the hospital with abdominal pain. She underwent a D&C last week for a miscarriage. She presented to the [facility] Emergency Department several days later with severe abdominal and nausea. At admission white blood cell count 20 afebrile, mild tachycardia normotensive. CT abdomen pelvis demonstrates extensive inflammation of the terminal ileum no free air or free fluid, the appendix was not visualized. She has a history of bloody diarrhea, colonoscopy several years ago demonstrated internal hemorrhoids, the terminal ileum was not intubated. No known history of Crohn's or other inflammatory bowel disease. No family history of intestinal malignancy or IBD. No prior similar episodes of abdominal pain. At admission she recieved Zosyn and methylprednisolone for treatment of presumed Crohn's flare and possible infectious disease given the leukocytosis. Today she feels significantly better then she did yesterday, abdominal pain greatly improved. Meds Home Medications and Allergies Home Medications Medication Instructions Recorded Confirmed Type naproxen 500 mg tablet 500 mg PO BID PRN Pain (Scale 01/15/20 04/11/23 History Score 1-3) Glucometer #1 ea 08/22/21 04/11/23 Rx Lancettes #100 ea 08/22/21 04/11/23 Rx glucose test strips #100 ea 08/22/21 04/11/23 Rx lancette device #1 ea 08/22/21 04/11/23 Rx Blood Pressure Cuff - Omron upper #1 ea 10/23/21 04/11/23 Rx arm lisinopril 5 mg tablet 5 mg PO DAILY #90 tabs 10/23/21 04/03/23 Rx calcium carbonate 600 mg calcium 600 mg PO BID #180 tabs 02/01/22 04/11/23 Rx (1,500 mg) tablet (Calcium) cholecalciferol (vitamin D3) 25 25 mcg PO DAILY 02/01/22 04/11/23 History mcg (1,000 unit) capsule multivitamin with minerals 1 tab PO DAILY 02/01/22 04/11/23 History (Hair,Skin and Nails tablet) vitamin B complex (B 1 tab PO DAILY 02/01/22 04/11/23 History Complex-Vitamin B12 tablet) metformin 500 mg tablet,extended 1,000 mg PO BID 30 days #120 tabs 05/16/22 04/11/23 Rx release 24 hr empagliflozin 10 mg tablet 10 mg PO QAM #90 tabs 07/19/22 04/11/23 Rx (Jardiance) omega-3 acid ethyl esters 1 gram 1 cap PO BID #180 caps 07/19/22 04/03/23 Rx capsule (Lovaza) rosuvastatin 5 mg tablet 5 mg PO DAILY #90 tabs 07/19/22 04/11/23 Rx spironolactone 100 mg tablet 100 mg PO QAM #90 tabs 07/19/22 04/11/23 Rx valacyclovir 1 gram tablet 1,000 mg PO BID herpes #20 tabs 07/19/22 04/03/23 Rx norelgestromin 150 mcg-e.estradiol 1 patch transdermal QWEEK #12 ea 08/20/22 04/03/23 Rx 35 mcg/24 hr weekly transderm patch (Xulane) oxycodone 5 mg tablet 5 mg PO Q4H PRN pain #10 tabs 04/03/23 04/11/23 Rx Allergies Allergy/AdvReac Type Severity Reaction Status Date / Time propofol Allergy Severe Difficulty Verified 04/11/23 12:26 Breathing Exam Vital Signs (past 8 hours): - 04/11/23 14:15 04/11/23 14:18 04/11/23 14:30 Temperature Pulse Rate 83 96 H Respiratory Rate 18 Blood Pressure 128/63 127/60 Pulse Oximetry 95 96 Oxygen Delivery Method Room Air Oxygen Flow Rate 04/11/23 14:30 04/11/23 15:00 04/11/23 15:00 Temperature Pulse Rate 93 H 96 H Respiratory Rate Blood Pressure 134/78 Pulse Oximetry 95 95 Oxygen Delivery Method Oxygen Flow Rate 04/11/23 15:03 Temperature 98.2 F Pulse Rate 104 H Respiratory Rate 18 Blood Pressure 118/69 Pulse Oximetry 93 Oxygen Delivery Method Oxygen Flow Rate 0 Oxygen Delivery Method Room Air Oxygen Flow Rate 0 Narrative Exam Narrative: General adult woman alert oriented no acute distress Chest nonlabored respiration Abdomen soft tender periumbilical and right lower quadrant. No pilar peritonitis. Objective Labs 04/12/23 05:00 04/12/23 05:00 Labs: Laboratory Results - last 24 hr 04/11/23 04/11/23 04/11/23 12:39 12:39 12:39 WBC 20.4 H RBC 4.31 Hgb 12.1 Hct 35.7 L MCV 82.9 MCH 28.0 MCHC 33.8 RDW 13.8 Plt Count 481 H Neut % (Auto) 85.0 H Lymph % (Auto) 10.3 L [place] % (Auto) 4.1 Eos % (Auto) 0.2 L Baso % (Auto) 0.4 Neut # (Auto) 52300 H Lymph # (Auto) 2100 [place] # (Auto) 800 Eos # (Auto) 0 Baso # (Auto) 100 Sodium 136 L Potassium 4.2 Chloride 100 Carbon Dioxide 25 BUN 8 Creatinine 0.50 L Estimated GFR > 60 BUN/Creatinine Ratio 16.0 Glucose 201 H Lactate 1.4 Calcium 9.4 Magnesium Total Bilirubin 0.4 AST 19 ALT 24 Alkaline Phosphatase 94 Total Protein 8.4 H Albumin 4.5 Globulin 3.9 Albumin/Globulin Ratio 1.2 Lipase 40 Procalcitonin Urine Color Urine Appearance Urine pH Ur Specific [place] Urine Protein Urine Glucose (UA) Urine Ketones Urine Occult Blood Urine Nitrate Urine Bilirubin Urine Urobilinogen Ur Leukocyte Esterase Urine RBC Urine WBC Ur Squamous Epith Cells Uric Acid Crystals Urine Bacteria Ur Culture Indicated? 04/11/23 04/11/23 04/11/23 12:39 12:39 17:00 WBC RBC Hgb Hct MCV MCH MCHC RDW Plt Count Neut % (Auto) Lymph % (Auto) [place] % (Auto) Eos % (Auto) Baso % (Auto) Neut # (Auto) Lymph # (Auto) [place] # (Auto) Eos # (Auto) Baso # (Auto) Sodium Potassium Chloride Carbon Dioxide BUN Creatinine Estimated GFR BUN/Creatinine Ratio Glucose Lactate Calcium Magnesium 1.7 Total Bilirubin AST ALT Alkaline Phosphatase Total Protein Albumin Globulin Albumin/Globulin Ratio Lipase Procalcitonin 0.06 Urine Color Yellow Urine Appearance Clear Urine pH 5.0 Ur Specific [place] 1.015 Urine Protein Negative Urine Glucose (UA) 2+ H Urine Ketones Negative Urine Occult Blood 2+ H Urine Nitrate Negative Urine Bilirubin Negative Urine Urobilinogen 0.2 Ur Leukocyte Esterase Negative Urine RBC 1-5/hpf Urine WBC None seen Ur Squamous Epith Cells 1-5 /hpf Uric Acid Crystals Moderate H Urine Bacteria None seen Ur Culture Indicated? Cult not indicated PFSH Medical History Blood per rectum Diabetes mellitus type 2 in obese Diabetes mellitus, new onset Hemorrhoids Hirsutism Hypertension Miscarriage within last 12 months Mixed hyperlipidemia due to type 2 diabetes mellitus Non-insulin dependent diabetes mellitus PCOS (polycystic ovarian syndrome) Pelvic pain Sciatic nerve pain Strep pharyngitis Surveillance of oral contraception, patch, or vaginal ring Tonsillitis Unwanted fertility Uses hormonal contraceptive patch as primary control method Surgical History History of Hx of dilation and curettage Family History Grandmother Hypertension Cancer Stroke Grandfather Diabetes mellitus Stroke Social History household members: family Tobacco & Substance Use Smoking Status: Never smoker alcohol intake: current substance use type: does not use Assessment & Plan Assessment and plan (1) Ileitis: Status: Acute Assessment & Plan narrative: 28-year-old woman admitted to the hospital with abdominal pain and ileitis. CT abdomen pelvis personally reviewed demonstrates extensive inflammation of the terminal ileum without evidence of free air abscess or obvious appendicitis. Laboratory studies are significant for downtrending leukocytosis however procalcitonin is normal. Her presentation is most consistent with an acute flare of Crohn's disease as opposed to an infectious etiology. -diet as tolerated -start mesalamine for baseline therapy. -methylprednisolone for acute flare. -can likely discontinue antibiotic therapy given the normal procalcitonin -we will need to establish with Gastroenterology for management of likely undiagnosed Crohn's disease
[2023-04-12 00:19] VITALS: BP 106/68; PULSE 97; RESP 21; TEMP 35.9; O2SAT 94
[2023-04-12] MEDS: ONDANSETRON 4 MG/2 ML INJ IV ×3 (01:03→09:00)
[2023-04-12 03:16] LABS: Labcorp Hemoglobin (Hb) A1c 7.9 % (4.8-5.6)
[2023-04-12 04:00] VITALS: BP 94/56; PULSE 89; RESP 21; TEMP 35.9; O2SAT 95
[2023-04-12] MEDS: PIPERACILLIN/TAZO 3.375 GM in SODIUM CHLORIDE 0.9% 100 ML IV ×3 (04:02→19:55)
[2023-04-12 05:10] VITALS: BP 97/63
[2023-04-12 05:38] LABS: Add Manual Diff / Slide Review NO; Basophils Absolute Auto 0 /uL (0-100); Basophils Percent Auto 0.1 % (0-2); Eosinophils Absolute Auto 0 /uL (0-450); Eosinophils Percent Auto 0.1 % (2-4); Hematocrit 29.2 % (36-46); Hemoglobin 10.1 g/dL (12.0-16.0); Lymphocytes Absolute Auto 2200 /uL (1100-4500); Lymphocytes Percent Auto 12.1 % (25-40); Mean Corpuscular HGB Conc 34.4 % (30-36); Mean Corpuscular Hemoglobin 28.3 PG (26-34); Mean Corpuscular Volume 82.3 fL (80-100); Monocytes Absolute Auto 900 /uL (0-900); Monocytes Percent Auto 5.2 % (3-14); Neutrophils Absolute Auto 14900 /uL (1500-7000); Neutrophils Percent Auto 82.5 % (50-75); Platelet Count 405 X10^3/uL (150-400); Red Blood Cell Count 3.55 X10^6/uL (4.0-5.2); Red Cell Distribution Width 13.7 % (11.6-14.8)
[2023-04-12 05:39] LABS: BUN Creatinine Ratio 16.7 (6-22); Blood Urea Nitrogen 8 mg/dL (7-17); Calcium 8.3 mg/dL (8.4-10.2); Carbon Dioxide 24 mmol/L (22-32); Chloride 104 mmol/L (98-107); Estimated Glomerular Filt Rate > 60 mL/min (>60); Glucose 173 mg/dL (70-100); HEMOLYSIS < 15 (0-50); Sodium 135 mmol/L (137-145)
[2023-04-12 05:40] LABS: Magnesium 1.8 mg/dL (1.6-2.3)
[2023-04-12 09:00] VITALS: BP 102/55; PULSE 100; RESP 18; TEMP 36.6; O2SAT 96
[2023-04-12] MEDS: MESALAMINE 400 MG CAP.DRTAB. 1200 MG PO ×3 (09:00→21:27)
[2023-04-12] MEDS: ATORVASTATIN 20 MG TABLET 10 MG PO (09:01)
[2023-04-12] MEDS: MAGNESIUM SULFATE 2 GM/50 ML PIGGYBACK IV (09:01)
[2023-04-12] MEDS: methylPREDNISolone 125 MG/2 ML VIAL 60 MG IV ×2 (09:04→21:31)
[2023-04-12] MEDS: NAPROXEN 250 MG TABLET 500 MG PO ×2 (09:16→21:27)
[2023-04-12] MEDS: SODIUM CHLORIDE 0.9% 1,000 ML 125 ML IV (09:27)
[2023-04-12] MEDS: INSULIN REGULAR 100 UNIT/ML 3 ML VIAL SUBCUT (09:28)
--- NOTE | 2023-04-12 11:37 | CM.DANOTE ---
DCP: Case received, EMR reviewed and met with patient. Introduced self and role. Completed DCP assessment based upon information currently available. Patient is a 28 year old female who admitted yesterday morning to the care of the hospitalist team. PCP: ROCKY Churchill. Payer: confirmed: [facility] [employer]/Medicaid. Patient came to the hospital via private vehicle secondary to abdominal pain, nausea. Notes indicate that patient had an incomplete miscarriage on 04/03, had a D&C by Dr. White. Patient came to the ER complaining of chils, some bloody vaginal discharge. Patient was unable to keep anything down. Patient was noted to have Chron's flare. Surgeon has seen patient today, recommended that patient follow up with gasteroenterology. P: DCP to continue to follow. Plan is home when deemed medically stable. Laury Gonzáles RN/[employer] Crewmember Discharge Planning/Care Management CM Discharge Assessment Start: 04/12/23 11:35 Freq: Status: Active Protocol: Document 04/12/23 11:35 (Rec: 04/12/23 11:37 [email or web address]) Discharge Planning Assessment Assigned Criminal Psychologist Laury Gonzáles RN/[employer] Crewmember Advance Directives? No History Provided By Patient,Medical Record Prior Living Arrangements House Household Members family Type of transporation used prior to Drives own vehicle admit Independent with ADL's Yes Is patient alert and oriented? Yes Caregiver for Another Yes: Has a 5 year old daughter Barriers to Discharge No Discharge Plan Home Transportation Arrangement Family member Referrals Initiated None needed Whiteboard Updated in Patient Room with Yes name and ext. # of Criminal Psychologist Review Status In Process Next Review Type Continued Stay Review
--- NOTE | 2023-04-12 11:49 | P.PN_ITS ---
Subjective Subjective Interval history: Patient feeling alot better today. Abd pain has improved and she has no NV and tolerating solid foods. Exam Vital Signs (past 8 hours): - 04/12/23 04:00 04/12/23 05:10 04/12/23 09:00 Temperature 96.6 F L 97.9 F Pulse Rate 89 100 H Respiratory Rate 21 18 Blood Pressure 94/56 L 97/63 102/55 L Pulse Oximetry 95 96 Oxygen Flow Rate 0 0 Oxygen Delivery Method Room Air Oxygen Flow Rate 0 Narrative Exam Narrative: GEN: NAD, obese HEENT: moist mucous membranes, PERRL NECK: trachea midline, no JVD CV: tachycardic, no murmurs PULM: clear bilaterally ABD: diffuse abd pain but most notable in RLQ and periumbilical has improved, no guarding present EXT: warm and well perfused with no edema NEURO: awake, alert, oriented, no focal deficits Objective Labs 04/12/23 05:00 04/12/23 05:00 Labs: Laboratory Results - last 24 hr 04/11/23 04/11/23 04/11/23 12:39 12:39 12:39 WBC 20.4 H RBC 4.31 Hgb 12.1 Hct 35.7 L MCV 82.9 MCH 28.0 MCHC 33.8 RDW 13.8 Plt Count 481 H Neut % (Auto) 85.0 H Lymph % (Auto) 10.3 L [place] % (Auto) 4.1 Eos % (Auto) 0.2 L Baso % (Auto) 0.4 Neut # (Auto) 19795 H Lymph # (Auto) 2100 [place] # (Auto) 800 Eos # (Auto) 0 Baso # (Auto) 100 Sodium 136 L Potassium 4.2 Chloride 100 Carbon Dioxide 25 BUN 8 Creatinine 0.50 L Estimated GFR > 60 BUN/Creatinine Ratio 16.0 Glucose 201 H Hgb A1c (Ref Lab) Lactate 1.4 Calcium 9.4 Magnesium Total Bilirubin 0.4 AST 19 ALT 24 Alkaline Phosphatase 94 Total Protein 8.4 H Albumin 4.5 Globulin 3.9 Albumin/Globulin Ratio 1.2 Lipase 40 Procalcitonin Urine Color Urine Appearance Urine pH Ur Specific [place] Urine Protein Urine Glucose (UA) Urine Ketones Urine Occult Blood Urine Nitrate Urine Bilirubin Urine Urobilinogen Ur Leukocyte Esterase Urine RBC Urine WBC Ur Squamous Epith Cells Uric Acid Crystals Urine Bacteria Ur Culture Indicated? 04/11/23 04/11/23 04/11/23 12:39 12:39 12:39 WBC RBC Hgb Hct MCV MCH MCHC RDW Plt Count Neut % (Auto) Lymph % (Auto) [place] % (Auto) Eos % (Auto) Baso % (Auto) Neut # (Auto) Lymph # (Auto) [place] # (Auto) Eos # (Auto) Baso # (Auto) Sodium Potassium Chloride Carbon Dioxide BUN Creatinine Estimated GFR BUN/Creatinine Ratio Glucose Hgb A1c (Ref Lab) 7.9 H Lactate Calcium Magnesium 1.7 Total Bilirubin AST ALT Alkaline Phosphatase Total Protein Albumin Globulin Albumin/Globulin Ratio Lipase Procalcitonin 0.06 Urine Color Urine Appearance Urine pH Ur Specific [place] Urine Protein Urine Glucose (UA) Urine Ketones Urine Occult Blood Urine Nitrate Urine Bilirubin Urine Urobilinogen Ur Leukocyte Esterase Urine RBC Urine WBC Ur Squamous Epith Cells Uric Acid Crystals Urine Bacteria Ur Culture Indicated? 04/11/23 04/12/23 04/12/23 17:00 05:00 05:00 WBC 18.0 H RBC 3.55 L Hgb 10.1 L Hct 29.2 L MCV 82.3 MCH 28.3 MCHC 34.4 RDW 13.7 Plt Count 405 H Neut % (Auto) 82.5 H Lymph % (Auto) 12.1 L [place] % (Auto) 5.2 Eos % (Auto) 0.1 L Baso % (Auto) 0.1 Neut # (Auto) 02918 H Lymph # (Auto) 2200 [place] # (Auto) 900 Eos # (Auto) 0 Baso # (Auto) 0 Sodium Potassium Chloride Carbon Dioxide BUN Creatinine Estimated GFR BUN/Creatinine Ratio Glucose Hgb A1c (Ref Lab) Lactate Calcium Magnesium 1.8 Total Bilirubin AST ALT Alkaline Phosphatase Total Protein Albumin Globulin Albumin/Globulin Ratio Lipase Procalcitonin Urine Color Yellow Urine Appearance Clear Urine pH 5.0 Ur Specific [place] 1.015 Urine Protein Negative Urine Glucose (UA) 2+ H Urine Ketones Negative Urine Occult Blood 2+ H Urine Nitrate Negative Urine Bilirubin Negative Urine Urobilinogen 0.2 Ur Leukocyte Esterase Negative Urine RBC 1-5/hpf Urine WBC None seen Ur Squamous Epith Cells 1-5 /hpf Uric Acid Crystals Moderate H Urine Bacteria None seen Ur Culture Indicated? Cult not indicated 04/12/23 05:00 WBC RBC Hgb Hct MCV MCH MCHC RDW Plt Count Neut % (Auto) Lymph % (Auto) [place] % (Auto) Eos % (Auto) Baso % (Auto) Neut # (Auto) Lymph # (Auto) [place] # (Auto) Eos # (Auto) Baso # (Auto) Sodium 135 L Potassium 4.0 Chloride 104 Carbon Dioxide 24 BUN 8 Creatinine 0.48 L Estimated GFR > 60 BUN/Creatinine Ratio 16.7 Glucose 173 H Hgb A1c (Ref Lab) Lactate Calcium 8.3 L Magnesium Total Bilirubin AST ALT Alkaline Phosphatase Total Protein Albumin Globulin Albumin/Globulin Ratio Lipase Procalcitonin Urine Color Urine Appearance Urine pH Ur Specific [place] Urine Protein Urine Glucose (UA) Urine Ketones Urine Occult Blood Urine Nitrate Urine Bilirubin Urine Urobilinogen Ur Leukocyte Esterase Urine RBC Urine WBC Ur Squamous Epith Cells Uric Acid Crystals Urine Bacteria Ur Culture Indicated? PFSH Medical History Blood per rectum Diabetes mellitus type 2 in obese Diabetes mellitus, new onset Hemorrhoids Hirsutism Hypertension Miscarriage within last 12 months Mixed hyperlipidemia due to type 2 diabetes mellitus Non-insulin dependent diabetes mellitus PCOS (polycystic ovarian syndrome) Pelvic pain Sciatic nerve pain Strep pharyngitis Surveillance of oral contraception, patch, or vaginal ring Tonsillitis Unwanted fertility Uses hormonal contraceptive patch as primary control method Surgical History History of Hx of dilation and curettage Family History Grandmother Hypertension Cancer Stroke Grandfather Diabetes mellitus Stroke Social History household members: family Smoking Status: Never smoker alcohol intake: current substance use type: does not use Assessment & Plan Assessment & Plan narrative: # acute nausea vomiting and abdominal pain, improving -likely due to Crohn's, with CT showing terminal ileitis -Gen surg consulted, will arrange referral for outpatient GI follow-up -IV abx as below -IVF, zofran PRN -continue solumedrol IV 60mg BID and mesalamine to treat Crohn's disease flare -patient tolerating po and abd pain much better # acute sepsis, resolving -patient with leukocytosis of 20, tachycardia and temp of 100? F -started Zosyn -follow-up blood cultures -chest x-ray and UA negative -WBC now downtrending # type 2 diabetes -q6h blood glucose checks while on clears with regular insulin sliding scale -hold home metformin and Jardiance -A1c 7.9% # hypertension -continue home lisinopril # hyperlipidemia -continue home statin # PCOS -continue home spironolactone Code status is full code. DVT prophylaxis with SCDs. Proxy is mother Anusha. Dispo: Likely home on 04/13. Quality VTE Deep Vein Thrombosis/Pulmonary Embolism Present on Admission: No
[2023-04-12] MEDS: INSULIN LISPRO 100 UNIT/ML 3ML VIAL SUBCUT ×3 (12:20→21:27)
[2023-04-12 13:00] VITALS: BP 101/53; PULSE 99; RESP 18; TEMP 36.8; O2SAT 93
[2023-04-12 20:58] VITALS: BP 125/71; PULSE 95; RESP 20; TEMP 36.4; O2SAT 95
--- NOTE | 2023-04-12 21:59 | PC.NURSE ---
Patient is alert and oriented. Breath sounds CTA with RA sat of 95%. HRR. Denies nausea and declines scheduled Zofran. BT present and reports having had 2 runny stools today. Denies dysuria with urination. Is independent with mobility and steady on feet. Denies pain but reports an achiness in right abdomen which she rates as 3/10 but declines pain medication. Refuses SCD's but is up frequently to bathroom. Fall risk score is moderate but bed alarm not deemed necessary at this time.
[2023-04-13 00:52] VITALS: BP 139/83; PULSE 90; RESP 20; TEMP 36.7; O2SAT 96
[2023-04-13] MEDS: SODIUM CHLORIDE 0.9% FLUSH 10 ML IV (04:04)
[2023-04-13] MEDS: PIPERACILLIN/TAZO 3.375 GM in SODIUM CHLORIDE 0.9% 100 ML IV (04:04)
[2023-04-13 04:36] LABS: BUN Creatinine Ratio 26.1 (6-22); Blood Urea Nitrogen 12 mg/dL (7-17); Calcium 8.6 mg/dL (8.4-10.2); Carbon Dioxide 23 mmol/L (22-32); Chloride 103 mmol/L (98-107); Estimated Glomerular Filt Rate > 60 mL/min (>60); Glucose 253 mg/dL (70-100); HEMOLYSIS < 15 (0-50); Potassium 4.6 mmol/L (3.4-5.1); Sodium 136 mmol/L (137-145)
[2023-04-13 04:46] LABS: Add Manual Diff / Slide Review NO; Basophils Absolute Auto 0 /uL (0-100); Basophils Percent Auto 0.1 % (0-2); Eosinophils Absolute Auto 0 /uL (0-450); Hematocrit 29.1 % (36-46); Hemoglobin 9.8 g/dL (12.0-16.0); Lymphocytes Absolute Auto 2100 /uL (1100-4500); Lymphocytes Percent Auto 12.5 % (25-40); Mean Corpuscular HGB Conc 33.8 % (30-36); Mean Corpuscular Hemoglobin 28.2 PG (26-34); Mean Corpuscular Volume 83.6 fL (80-100); Monocytes Absolute Auto 400 /uL (0-900); Monocytes Percent Auto 2.5 % (3-14); Neutrophils Absolute Auto 14100 /uL (1500-7000); Neutrophils Percent Auto 84.9 % (50-75); Platelet Count 398 X10^3/uL (150-400); Red Blood Cell Count 3.48 X10^6/uL (4.0-5.2); Red Cell Distribution Width 13.7 % (11.6-14.8); White Blood Cell Count 16.6 X10^3/uL (4.5-11.0)
[2023-04-13 05:00] VITALS: BP 119/78; PULSE 78; RESP 20; TEMP 35.9; O2SAT 97
[2023-04-13] MEDS: OXYCODONE IR 5 MG TABLET PO (05:32)
[2023-04-13] MEDS: ONDANSETRON 4 MG/2 ML INJ IV (05:33)
[2023-04-13] MEDS: INSULIN LISPRO 100 UNIT/ML 3ML VIAL SUBCUT ×2 (08:56→11:44)
[2023-04-13 09:00] VITALS: BP 119/66; PULSE 97; RESP 24; TEMP 36.6; O2SAT 94
[2023-04-13] MEDS: SPIRONOLACTONE 25 MG TABLET 100 MG PO (09:03)
[2023-04-13] MEDS: MESALAMINE 400 MG CAP.DRTAB. 1200 MG PO (09:03)
[2023-04-13] MEDS: methylPREDNISolone 125 MG/2 ML VIAL 60 MG IV (09:09)
[2023-04-13] MEDS: NAPROXEN 250 MG TABLET 500 MG PO (09:10)
[2023-04-13] MEDS: ATORVASTATIN 20 MG TABLET 10 MG PO (09:10)
[2023-04-13] MEDS: FLUCONAZOLE 100 MG TABLET 150 MG PO (10:44)
--- NOTE | 2023-04-13 10:45 | PM.DS.1 ---
History of Present Illness History of Present Illness Date Patient Seen: 04/11/23 Time Patient Seen: 17:30 Chief complaint: ABD pain Narrative: Rosalino Dinh is a 28-year-old female with past medical history of type 2 diabetes, hypertension, hyperlipidemia, PCOS, and recent D&C on 04/03 who presents with acute nausea vomiting and abdominal pain. Patient states she had some light vaginally bleeding since her procedure but was otherwise feeling well. She had diarrhea yesterday but that was after starting her metformin back up which she usually gets diarrhea when restarting. She then was awakened from sleep at 0300 this morning with severe stabbing abd pain. She had several bouts of vomiting to the point where she was dry heaving. Patient's had a colonoscopy in the past due to rectal bleeding which showed only internal hemorrhoids which were thought to be the source of bleeding. She denies recurrent diarrhea or bloody stools in the past. In the ED patient found to have severe inflammation of the terminal ileum suggesting possible Crohn's flare. WBC 20. Given dose of solumderol. WBC elevated at 20.4. Given IV abx. Discharge Providers Provider Date of admission: 04/11/23 14:45 Discharge Date: 04/13/23 Primary care physician: ROCKY Churchill Consults: 04/11/23 15:37 Consult to General Surgery Routine Comment: Consulting Provider: Wayne Fierro Reason for consultation: possible Crohn's Discharge provider: Ismael Spaulding DO Summary Hospital Course Discharge Diagnosis: # acute nausea vomiting and abdominal pain, improving -likely due to Crohn's, with CT showing terminal ileitis -Gen surg consulted, will arrange referral for outpatient GI follow-up -IV abx as below -IVF, zofran PRN -continue solumedrol IV 60mg BID and mesalamine to treat Crohn's disease flare -patient tolerating po and abd pain much better -discharged on 6 week prednisone taper # acute sepsis, resolving -patient with leukocytosis of 20, tachycardia and temp of 100? F -started Zosyn -blood cultures negative -chest x-ray and UA negative -WBC now downtrending -discharged on 1 more week of po augmentin # type 2 diabetes -q6h blood glucose checks while on clears with regular insulin sliding scale -hold home metformin and Jardiance -A1c 7.9% # hypertension -continue home lisinopril # hyperlipidemia -continue home statin # PCOS -continue home spironolactone Hospital Course: Admitted for acute abdominal pain with nausea and vomiting and found to have terminal ileitis on CT scan highly suspicious for Crohn's disease flare. General surgery consulted who also agreed with Crohn's and not appendicitis. Was started on IV Solu-Medrol, mesalamine and Zosyn and her symptoms improved drastically over 2 days. General surgery placed referral to [facility] gastroenterology which patient will follow up with for continued management. She was placed on 1 more week of p.o. Augmentin and 6 weeks prednisone taper from 60 mg daily on discharge. Time Spent with Patient Time spent: Greater than 30 minutes Exam Vital Signs (past 8 hours): - 04/13/23 05:00 04/13/23 09:00 Temperature 96.6 F L 97.9 F Pulse Rate 78 97 H Respiratory Rate 20 24 Blood Pressure 119/78 119/66 Pulse Oximetry 97 94 Oxygen Flow Rate 0 Oxygen Delivery Method Room Air Oxygen Flow Rate 0 Narrative Exam Narrative: GEN: NAD, obese HEENT: moist mucous membranes, PERRL NECK: trachea midline, no JVD CV: tachycardic, no murmurs PULM: clear bilaterally ABD: improved RLQ tenderness, no guarding present EXT: warm and well perfused with no edema NEURO: awake, alert, oriented, no focal deficits Objective Labs 04/13/23 04:05 04/13/23 04:05 Labs: Laboratory Results - last 24 hr 04/13/23 04/13/23 04:05 04:05 WBC 16.6 H RBC 3.48 L Hgb 9.8 L Hct 29.1 L MCV 83.6 MCH 28.2 MCHC 33.8 RDW 13.7 Plt Count 398 Neut % (Auto) 84.9 H Lymph % (Auto) 12.5 L [place] % (Auto) 2.5 L Eos % (Auto) 0.0 L Baso % (Auto) 0.1 Neut # (Auto) 32898 H Lymph # (Auto) 2100 [place] # (Auto) 400 Eos # (Auto) 0 Baso # (Auto) 0 Sodium 136 L Potassium 4.6 Chloride 103 Carbon Dioxide 23 BUN 12 Creatinine 0.46 L Estimated GFR > 60 BUN/Creatinine Ratio 26.1 H Glucose 253 H Calcium 8.6 PFSH Medical History Blood per rectum Diabetes mellitus type 2 in obese Diabetes mellitus, new onset Hemorrhoids Hirsutism Hypertension Miscarriage within last 12 months Mixed hyperlipidemia due to type 2 diabetes mellitus Non-insulin dependent diabetes mellitus PCOS (polycystic ovarian syndrome) Pelvic pain Sciatic nerve pain Strep pharyngitis Surveillance of oral contraception, patch, or vaginal ring Tonsillitis Unwanted fertility Uses hormonal contraceptive patch as primary control method Surgical History History of Hx of dilation and curettage Family History Grandmother Hypertension Cancer Stroke Grandfather Diabetes mellitus Stroke Social History household members: family Smoking Status: Never smoker alcohol intake: current substance use type: does not use Discharge Plan Discharge Plan Patient Disposition: Home Provider Discharge Comment: You were admitted for abdominal pain and nausea vomiting likely new onset Crohn's disease. This improved with antibiotics and steroids. You will now need to see gastroenterology for further evaluation. I have put you on 1 more week of antibiotics and a 6 week taper of prednisone. Watch your blood sugars while on prednisone as they can be higher than normal. Discharge orders & Medications Prescriptions: New amoxicillin-pot clavulanate 875-125 mg tablet 1 tab PO BID 5 Days Qty: 10 0RF prednisone 10 mg tablet See Rx Instructions .ROUTE .COMPLEX Qty: 147 0RF Rx Instructions: 60 mg (6 pills) daily for 1 week, then taper by subtracting 1 pill per week over 6 weeks until pills run out (ex. 5 pills x1 wk, 4 pills x1 week, 3 pills x1 wk, etc.) Continued metformin 500 mg tablet extended release 24 hr 1,000 mg PO BID 30 Days Qty: 120 2RF Rx Instructions: Take 1 tabs (1000mg) twice per day with meals Xulane 150-35 mcg/24 hr patch weekly 1 patch transdermal QWEEK Qty: 12 4RF Rx Instructions: apply once weekly for 3 weeks of a 4-week cycle lisinopril 5 mg tablet 5 mg PO DAILY Qty: 90 3RF Rx Instructions: Take 1 tab at bedtime daily. Please check your BP daily. (DME) Blood Pressure Cuff - Omron upper arm See Rx Instructions .Route .MEDSUPPLY Qty: 1 0RF Rx Instructions: Take your blood pressure daily as directed vitamin B complex [B Complex-Vitamin B12] Tablet 1 tab PO DAILY Hair,Skin and Nails Tablet 1 tab PO DAILY calcium carbonate [Calcium 600] 600 mg calcium (1,500 mg) tablet 600 mg PO BID Qty: 180 0RF cholecalciferol (vitamin D3) 25 mcg (1,000 unit) capsule 25 mcg PO DAILY ([facility]) Glucometer See Rx Instructions .Route .MEDSUPPLY Qty: 1 0RF Rx Instructions: Check FSBG daily and as needed. BRAND PER INSURANCE ([facility]) glucose test strips See Rx Instructions .Route .MEDSUPPLY Qty: 100 3RF Rx Instructions: Check FSBG daily and as needed. BRAND PER INSURANCE ([facility]) lancette device See Rx Instructions .Route .MEDSUPPLY Qty: 1 0RF Rx Instructions: Check blood glucose daily and as needed. BRAND PER INSURANCE ([facility]) Lancettes See Rx Instructions .Route .MEDSUPPLY Qty: 100 3RF Rx Instructions: Check FSBG daily and as needed. BRAND PER INSURANCE omega-3 acid ethyl esters [Lovaza] 1 gram capsule 1 cap PO BID Qty: 180 3RF Rx Instructions: Take 1 tab twice per day for elevated triglycerides valacyclovir 1 gram tablet 1,000 mg PO BID Qty: 20 3RF rosuvastatin 5 mg tablet 5 mg PO DAILY Qty: 90 3RF Rx Instructions: Take 1 tab daily for elevated cholesterol. spironolactone 100 mg tablet 100 mg PO QAM Qty: 90 3RF Jardiance 10 mg tablet 10 mg PO QAM Qty: 90 3RF Rx Instructions: Take 1 tab daily with meal naproxen 500 mg tablet 500 mg PO BID PRN (Reason: Pain (Scale Score 1-3)) oxycodone 5 mg tablet 5 mg PO Q4H PRN (Reason: pain) Qty: 10 0RF Follow up/Referrals: Cecy Schneider ARNP [Primary Care Provider] - 2 Weeks Visit Report/Discharge Packet Stand Alone Forms: Patient Portal/API, Stroke Signs & Symptoms Discharge Data Primary Care Provider: Cecy Schneider Quality VTE Deep Vein Thrombosis/Pulmonary Embolism Present on Admission: No
[2023-04-13 13:00] VITALS: BP 122/72; PULSE 83; RESP 24; TEMP 36.7; O2SAT 99
--- NOTE | 2023-04-13 15:46 | PC.NURSE ---
Pt is A&Ox4, VSS, afebrile on RA. She reports pain is mild to R side of adomen and tolerating 100% of meal this a.m. She is independent in the room. Denies dizziness, nausea, vomitting. MD at bedside evaluating patient and clears her for discharge home. Patient educated about medications, and monitoring blood sugars at home. She verbalizes understanding of medications (including prednisone taper, recommendations and following up with MD Cecy Schneider in 2 weeks. She is discharged when family arrives to transport her home at 1350 this afternoon, in private vehicle. She is discharged with all of her personal belongings.
== END 2023-04-13 13:50 | disposition home or self-care (01) | DRG 720 ==
LOC: ED 13:21 → AC 14:46
PROVIDERS: Emergency Medicine; Admitting Provider Student in an Organized Health Care Education/Training Program; Emergency Provider Nurse Practitioner Critical Care Medicine; PCP Nurse Practitioner; Referring Provider Nurse Practitioner Critical Care Medicine; Visit Provider Student in an Organized Health Care Education/Training Program
DX: A41.9 Sepsis, unspecified organism (principal); K50.00 Crohn's disease of small intestine without complications; E11.9 Type 2 diabetes mellitus without complications; I10 Essential (primary) hypertension; E78.5 Hyperlipidemia, unspecified; E28.2 Polycystic ovarian syndrome; Z79.84 Long term (current) use of oral hypoglycemic drugs
CPT/HCPCS: 36415; 71045; 74177; 80048; 80053; 81001; 81003; 82962; 83036; 83605; 83690; 83735; 84145; 85025; 87040; 96374; 96375; 99232; 99284; 99285; J0696; J1170; J2405; J2543; J2930; J3475

== ENCOUNTER 2023-05-06 11:39 | Emergency (ER) | payer OTHER, MEDICAID, SELFPAY ==
[2023-04-11 16:20] VITALS: BMI 38.3
[2023-05-06] VITALS (11 sets, daily range): BP systolic 104–143; BP diastolic 52–76; PULSE 88–98; RESP 12–18; TEMP 36.2; O2SAT 93–99; BMI 37.1
[2023-05-06 13:09] LABS: Add Manual Diff / Slide Review NO; Basophils Absolute Auto 100 /uL (0-100); Basophils Percent Auto 0.4 % (0-2); Eosinophils Absolute Auto 200 /uL (0-450); Eosinophils Percent Auto 0.9 % (2-4); Hematocrit 39.5 % (36-46); Hemoglobin 13.1 g/dL (12.0-16.0); Lymphocytes Absolute Auto 4000 /uL (1100-4500); Lymphocytes Percent Auto 19.5 % (25-40); Mean Corpuscular HGB Conc 33.2 % (30-36); Mean Corpuscular Volume 81.3 fL (80-100); Monocytes Absolute Auto 1300 /uL (0-900); Monocytes Percent Auto 6.4 % (3-14); Neutrophils Absolute Auto 14900 /uL (1500-7000); Neutrophils Percent Auto 72.8 % (50-75); Platelet Count 449 X10^3/uL (150-400); Red Blood Cell Count 4.86 X10^6/uL (4.0-5.2); Red Cell Distribution Width 14.3 % (11.6-14.8); White Blood Cell Count 20.5 X10^3/uL (4.5-11.0)
[2023-05-06 13:15] LABS: Alanine Aminotransferase 23 IU/L (<35); Albumin 3.8 g/dL (3.5-5.0); Albumin Globulin Ratio 1.2 (1.0-2.8); Alkaline Phosphatase 53 U/L (38-126); Aspartate Aminotransferase 27 IU/L (14-36); BUN Creatinine Ratio 32.6 (6-22); Bilirubin Total 0.3 mg/dL (0.2-1.3); Blood Urea Nitrogen 15 mg/dL (7-17); Calcium 8.8 mg/dL (8.4-10.2); Carbon Dioxide 25 mmol/L (22-32); Chloride 104 mmol/L (98-107); Estimated Glomerular Filt Rate > 60 mL/min (>60); Globulin 3.1 g/dL (1.7-4.1); Glucose 182 mg/dL (70-100); HEMOLYSIS 25 (0-50); Lipase 80 U/L (23-300); Potassium 4.3 mmol/L (3.4-5.1); Sodium 137 mmol/L (137-145); Total Protein 6.9 g/dL (6.3-8.2)
[2023-05-06 13:18] LABS: Bacteria Urine Few (2-10); Culture Indicated Urine Specimen Cultured; RBC Urine 1-5/HPF (0-5/HPF); Squamous Epithelial Cell Urine 1-5 /HPF (0-5/HPF); WBC Urine 10-30/HPF (0-5/HPF)
[2023-05-06] MEDS: ONDANSETRON 4 MG/2 ML INJ IV (13:33)
[2023-05-06] MEDS: HYDROMORPHONE 0.5 MG INJ IV ×2 (13:33→17:09)
[2023-05-06 13:52] LABS: Pregnancy Test Urine Negative (Negative)
[2023-05-06 13:52] LABS: Lactate (Lactic Acid) 1.6 mmol/L (0.7-2.1)
[2023-05-06] MEDS: SODIUM CHLORIDE 0.9% 1,000 ML 1000 ML IV (13:53)
[2023-05-06 14:10] LABS: Procalcitonin 0.04 ng/mL (<0.5)
--- NOTE | 2023-05-06 16:52 | ED_ITS ---
HPI - Abdominal Pain General Chief Complaint: Abdominal Pain Stated Complaint: severe abd pain, nausea Time Seen by Provider: 05/06/23 16:40 Source: patient Mode of arrival: Family Vehicle History of Present Illness HPI narrative: Patient 28-year-old female history of right lower quadrant pain possibility of Crohn's disease currently on prednisone taper on 3 mg presents today with increasing right lower quadrant pain. She denies any fever or chills she feels nauseous. She reports that she had a D&C on 04/03/[address] White she re ports that seems to have resolved she has had a normal menstrual cycle afterwards. She is not yet had a colonoscopy with biopsy to can firm Crohn's disease. She is had this ongoing right-sided pain for awhile however it got significantly worse. She has not seen she eye. Related Data Home Medications Medication Instructions Recorded Confirmed naproxen 500 mg tablet 500 mg PO BID PRN Pain (Scale 01/15/20 04/18/23 Score 1-3) cholecalciferol (vitamin D3) 25 25 mcg PO DAILY 02/01/22 04/18/23 mcg (1,000 unit) capsule multivitamin with minerals 1 tab PO DAILY 02/01/22 04/18/23 (Hair,Skin and Nails tablet) vitamin B complex (B 1 tab PO DAILY 02/01/22 04/18/23 Complex-Vitamin B12 tablet) ferrous sulfate 325 mg (65 mg 325 mg PO BID 04/18/23 04/18/23 iron) tablet (FeroSul) Previous Rx's Medication Instructions Recorded Glucometer #1 ea 08/22/21 Lancettes #100 ea 08/22/21 glucose test strips #100 ea 08/22/21 lancette device #1 ea 08/22/21 Blood Pressure Cuff - Omron upper #1 ea 10/23/21 arm lisinopril 5 mg tablet 5 mg PO DAILY #90 tabs 10/23/21 calcium carbonate 600 mg calcium 600 mg PO BID #180 tabs 02/01/22 (1,500 mg) tablet (Calcium) metformin 500 mg tablet,extended 1,000 mg PO BID 30 days #120 tabs 05/16/22 release 24 hr empagliflozin 10 mg tablet 10 mg PO QAM #90 tabs 07/19/22 (Jardiance) omega-3 acid ethyl esters 1 gram 1 cap PO BID #180 caps 07/19/22 capsule (Lovaza) rosuvastatin 5 mg tablet 5 mg PO DAILY #90 tabs 07/19/22 spironolactone 100 mg tablet 100 mg PO QAM #90 tabs 07/19/22 valacyclovir 1 gram tablet 1,000 mg PO BID herpes #20 tabs 07/19/22 norelgestromin 150 mcg-e.estradiol 1 patch transdermal QWEEK #12 ea 08/20/22 35 mcg/24 hr weekly transderm patch (Xulane) prednisone 10 mg tablet See Rx Instructions .Route 04/13/23 .COMPLEX #147 tabs blood pressure monitor (Blood #1 ea 04/18/23 Pressure Kit) bupropion HCl 150 mg 24 hr tablet, 300 mg PO QAM #180 tabs 04/18/23 extended release cephalexin 500 mg capsule 500 mg PO BID 7 days #10 caps 05/06/23 hydrocodone 5 mg-acetaminophen 325 1 tab PO Q6H PRN pain #10 tabs 05/06/23 mg tablet prednisone 5 mg tablet 5 mg PO DAILY #30 tabs 05/06/23 Allergies Allergy/AdvReac Type Severity Reaction Status Date / Time propofol AdvReac Severe Difficulty Verified 05/06/23 12:19 Breathing Review of Systems Review of Systems ROS Unobtainable: All systems reviewed & are unremarkable except as noted in HPI and below Patient History Medical History Blood per rectum Crohn disease Diabetes mellitus type 2 in obese Diabetes mellitus, new onset Hemorrhoids Hirsutism Hypertension Iron deficiency anemia Miscarriage within last 12 months Mixed hyperlipidemia due to type 2 diabetes mellitus Non-insulin dependent diabetes mellitus PCOS (polycystic ovarian syndrome) Pelvic pain Sciatic nerve pain Strep pharyngitis Surveillance of oral contraception, patch, or vaginal ring Tonsillitis Unwanted fertility Uses hormonal contraceptive patch as primary control method Surgical History History of Hx of dilation and curettage Family History Grandmother Hypertension Cancer Stroke Grandfather Diabetes mellitus Stroke Social History household members: family Smoking Status: Never smoker alcohol intake: current substance use type: does not use Smoking Status: Never smoker alcohol intake frequency: holidays/special occasions only Substance Use Type: marijuana Exam Initial Vital Signs Initial Vital Signs: Vital Signs Temperature 97.1 F L 05/06/23 12:13 Pulse Rate 88 05/06/23 12:13 Respiratory Rate 12 05/06/23 12:13 Blood Pressure 125/75 05/06/23 12:13 Pulse Oximetry 97 05/06/23 12:13 Oxygen Delivery Method Room Air 05/06/23 12:13 GENERAL: Alert 28-year-old female appears uncomfortable and in no acute distress. HEENT: Head atraumatic,EOMI, pupils reactive, face symmetric, moist mucous membranes CARDIOVASCULAR: Regular rate and rhythm without murmurs, rubs or gallops. RESPIRATORY: Breath sounds equal bilaterally, no wheezes rales or rhonchi. ABDOMEN: Soft, tender right lower quadrant pain mild guarding no rebound : No CVA tenderness EXTREMITIES: Normal range of motion, no clubbing or edema. Neurovascularly intact NEUROLOGICAL: Alert and oriented x4 SKIN: Warm, dry, no laceration, no petechiae, no rashes or lesions. Course Orders Ordered: Discontinued Medications Hydrocodone Bitart/Acetaminophen (Hydrocodone/Acet 5/325 Prepack) 1 bottle MISC SEEINSTR ONE Stop: 05/06/23 18:45 Last Admin: 05/06/23 18:48 Dose: 1 bottle Documented By: MICHELLE Hydromorphone HCl (Hydromorphone 0.5 Mg Inj) 0.5 mg IV NOW ONE Stop: 05/06/23 12:59 Last Admin: 05/06/23 13:33 Dose: 0.5 mg Documented By: FELECIA Hydromorphone HCl (Hydromorphone 0.5 Mg Inj) 0.5 mg IV NOW ONE Stop: 05/06/23 17:00 Last Admin: 05/06/23 17:09 Dose: 0.5 mg Documented By: AUDREY Sodium Chloride (Normal Saline 0.9%) 1,000 mls @ 1,000 mls/hr IV BOLUS ONE Stop: 05/06/23 14:35 Last Infusion: 05/06/23 16:10 Dose: 0 mls/hr Documented By: Admin: 05/06/23 13:53 Dose: 1,000 mls/hr Documented By: FELECIA Methylprednisolone (Methylprednisolone 125 Mg/2 Ml Vial) 125 mg IV NOW ONE Stop: 05/06/23 17:00 Last Admin: 05/06/23 17:09 Dose: 125 mg Documented By: AUDREY Ondansetron HCl (Ondansetron 4 Mg Odt) 4 mg PO NOW PRN PRN Reason: Nausea And Vomiting Ondansetron HCl (Ondansetron 4 Mg/2 Ml Inj) 4 mg IV NOW PRN PRN Reason: Nausea And Vomiting Last Admin: 05/06/23 13:33 Dose: 4 mg Documented By: FELECIA Vital Signs Vital signs: Vital Signs - 8 hr 05/06/23 12:13 05/06/23 13:49 05/06/23 15:38 Temperature 97.1 F L Pulse Rate 88 98 H Respiratory Rate 12 18 Blood Pressure 125/75 104/52 L 121/74 Pulse Oximetry 97 99 Oxygen Delivery Method Room Air Room Air 05/06/23 15:38 05/06/23 16:00 05/06/23 16:00 Temperature Pulse Rate 88 89 Respiratory Rate Blood Pressure 121/72 Pulse Oximetry 95 95 Oxygen Delivery Method 05/06/23 16:30 05/06/23 16:31 05/06/23 16:31 Temperature Pulse Rate 89 89 Respiratory Rate Blood Pressure 143/76 H Pulse Oximetry 95 97 Oxygen Delivery Method MDM - Abdominal Pain Lab Data 05/06/23 12:52 05/06/23 12:52 Labs: Lab Results 05/06/23 05/06/23 05/06/23 Range/Units 12:45 12:52 12:52 WBC 20.5 H (4.5-11.0) X10^3/uL RBC 4.86 (4.0-5.2) X10^6/uL Hgb 13.1 (12.0-16.0) g/dL Hct 39.5 (36-46) % MCV 81.3 (80-100) fL MCH 27.0 (26-34) PG MCHC 33.2 (30-36) % RDW 14.3 (11.6-14.8) % Plt Count 449 H (150-400) X10^3/uL Neut % (Auto) 72.8 (50-75) % Lymph % (Auto) 19.5 L (25-40) % [place] % (Auto) 6.4 (3-14) % Eos % (Auto) 0.9 L (2-4) % Baso % (Auto) 0.4 (0-2) % Neut # (Auto) 36392 H (5981-6169) /uL Lymph # (Auto) 4000 (2655-8871) /uL [place] # (Auto) 1300 H (0-900) /uL Eos # (Auto) 200 (0-450) /uL Baso # (Auto) 100 (0-100) /uL Sodium 137 (137-145) mmol/L Potassium 4.3 (3.4-5.1) mmol/L Chloride 104 (98-107) mmol/L Carbon Dioxide 25 (22-32) mmol/L BUN 15 (7-17) mg/dL Creatinine 0.46 L (0.52-1.04) mg/dL Estimated GFR > 60 (>60) mL/min BUN/Creatinine Ratio 32.6 H (6-22) Glucose 182 H (70-100) mg/dL Lactate (0.7-2.1) mmol/L Calcium 8.8 (8.4-10.2) mg/dL Total Bilirubin 0.3 (0.2-1.3) mg/dL AST 27 (14-36) IU/L ALT 23 (<35) IU/L Alkaline Phosphatase 53 (38-126) U/L Total Protein 6.9 (6.3-8.2) g/dL Albumin 3.8 (3.5-5.0) g/dL Globulin 3.1 (1.7-4.1) g/dL Albumin/Globulin Ratio 1.2 (1.0-2.8) Lipase 80 (23-300) U/L Procalcitonin (<0.5) ng/mL Urine RBC 1-5/hpf (0-5/HPF) Urine WBC 10-30/hpf H (0-5/HPF) Ur Squamous Epith Cells 1-5 /hpf (0-5/HPF) Urine Bacteria Few (2-10) H (None) Ur Culture Indicated? Specimen cultured Urine Test (Negative) 05/06/23 05/06/23 05/06/23 Range/Units 12:54 12:54 13:47 WBC (4.5-11.0) X10^3/uL RBC (4.0-5.2) X10^6/uL Hgb (12.0-16.0) g/dL Hct (36-46) % MCV (80-100) fL MCH (26-34) PG MCHC (30-36) % RDW (11.6-14.8) % Plt Count (150-400) X10^3/uL Neut % (Auto) (50-75) % Lymph % (Auto) (25-40) % [place] % (Auto) (3-14) % Eos % (Auto) (2-4) % Baso % (Auto) (0-2) % Neut # (Auto) (4607-7027) /uL Lymph # (Auto) (5814-2014) /uL [place] # (Auto) (0-900) /uL Eos # (Auto) (0-450) /uL Baso # (Auto) (0-100) /uL Sodium (137-145) mmol/L Potassium (3.4-5.1) mmol/L Chloride (98-107) mmol/L Carbon Dioxide (22-32) mmol/L BUN (7-17) mg/dL Creatinine (0.52-1.04) mg/dL Estimated GFR (>60) mL/min BUN/Creatinine Ratio (6-22) Glucose (70-100) mg/dL Lactate 1.6 (0.7-2.1) mmol/L Calcium (8.4-10.2) mg/dL Total Bilirubin (0.2-1.3) mg/dL AST (14-36) IU/L ALT (<35) IU/L Alkaline Phosphatase (38-126) U/L Total Protein (6.3-8.2) g/dL Albumin (3.5-5.0) g/dL Globulin (1.7-4.1) g/dL Albumin/Globulin Ratio (1.0-2.8) Lipase (23-300) U/L Procalcitonin 0.04 (<0.5) ng/mL Urine RBC (0-5/HPF) Urine WBC (0-5/HPF) Ur Squamous Epith Cells (0-5/HPF) Urine Bacteria (None) Ur Culture Indicated? Urine Test Negative (Negative) Point of care testing: Urine Dip Bedside Urine Glucose 1000 mg/dl Bedside Urine Bilirubin - Negative Bedside Urine Ketone - Negative Urine Specific [place] 1.030 Bedside Urine Occult Blood +++ Bedside Urine pH 5.5 Bedside Urine Protein + 30 Bedside Urine Urobilinogen - Negative Bedside Urine Nitrite - Negative Bedside Urine Leukocytes + [address] scan - abdomen/pelvis: Radiologist's Impression: PROCEDURE:? CT ABDOMEN PELVIS W CON ? INDICATIONS:? RLQ possible Crohn's ? TECHNIQUE:? After the administration of oral and IV contrast, axial sections were acquired from the lung bases to the pubic symphysis.? Coronal and sagittal reformats were performed.? For radiation dose reduction, the following was used:? automated exposure control, adjustment of mA and/or kV according to patient size. ? COMPARISON:? [facility], CT, CT ABDOMEN PELVIS W CON, 04/11/2023, 13:14.? [facility], CT, CT ABDOMEN PELVIS W CON, 04/06/2022, 10:55.? [facility], CT, CT ABDOMEN PELVIS W CON, 05/17/2019, 1:12.? [facility], CT, CT ABDOMEN PELVIS W CON, 05/23/2019, 1:09. ? FINDINGS:? Image quality:? This study is limited by body habitus.? ? Lung bases:? Unremarkable.? ? Heart:? No significant findings. ? ? ABDOMEN: Liver:? Unremarkable.? ? Gallbladder:? Unremarkable.? ? Biliary ducts:? Unremarkable.? ? Pancreas:? Unremarkable.? ? Spleen:? Unremarkable.? ? Adrenal Glands:? Unremarkable.? ? Kidneys and Ureters:? Unremarkable.? ? ? Stomach and Bowel: In this patient with this given history, scrutiny is given to the right lower quadrant.? A normal appendix is partially seen.? No focal right lower quadrant inflammatory changes are seen.? No significant abnormality the terminal ileum can be seen. No dilated loops of small bowel are seen. No significant gastric abnormality is seen. The stomach demonstrates no significant abnormality.? ? Peritoneum:? No abnormal intraperitoneal fluid.? No free air.? ? Ventral Wall: ? No hernia.? Abdominal Nodes:? No retroperitoneal or mesenteric adenopathy by size criteria.? Vessels:? Aorta and inferior vena cava are normal in size.? ? PELVIS: Pelvic Organs: The uterus appears normal for age.? No adnexal masses are seen.? Bladder:? Unremarkable.? ? Pelvic Nodes: No enlarged lymph nodes.? Miscellaneous: No inguinal hernias are seen. ? ? ? Bones:? Unremarkable.? IMPRESSION:? ? No focal right lower quadrant inflammatory changes are seen. ? No findings of active Crohn's disease can be seen. ? Normal appendix.? ? ? Dictated by: Santosh Mart M.D. on 05/06/2023 at 16:31 ? ? MDM Narrative Medical decision making narrative: Patient is a 28-year-old female history of PCOS, ongoing right lower quadrant pain, possibility of Crohn's disease but it has yet have a colonoscopy and biopsy presents today with increasing right-sided pain she decreases her prednisone. She had a D&C 1 month ago his head and normal. Since she is not today. She does not leukocytosis of which is increased however she has chronic elevation of WBC previously 16, possibly secondary to steroid. She does have some syncopal frequent urination positive UTI concern for sepsis she does not have any flank pain. CT does not show appendicitis or signs of active Crohn's. She previously had a CT that showed extensive inflammation in the terminal ileum which is concerning for Crohn's diagnosis. She is given a dose of IV Solu-Medrol antibiotics and pain medications. She understands that she is a follow-up with surgery or GI for colonoscopy as biopsies. Differential diagnosis appendicitis diverticulitis nephrolithiasis ovarian cyst and torsion Patient did have pelvic ultrasounds last month for her D and C right ovary was not visualized previously she had an ultrasound a year prior and it did show an ovarian cyst. At this time patient has had this chronic ongoing pain in the same area is not significantly low we discussed how she may need further workup however she is feeling better after medications. Discharge Plan Departure Patient Disposition: Home Clinical Impression: Abdominal pain Instructions: DI for Abdominal Pain-Adult Activity Restrictions/Additional Instructions: *You have been diagnosed with abdominal pain *What to do: You do need a colonoscopy. Will start you back on steroids to see if it how *Continue to take medications as directed--> SENT TO [facility] Prednisone 20 mg once a day for 3 days, 15 mg once a day for 3 days, 10 mg once a day for 3 days, 5 mg once a day for 3 days [place] 1 tablet every 6 hours if needed for severe pain Keflex 500 mg twice a day for 5 days for UTI *Follow up with your primary care provider in 2-3 days or call [phone] *Return to ER if you should have increasing pain, fever vomiting or any new, worsening or concerning symptoms CONTROLLED SUBSTANCE DISCHARGE (Narcotoic/benzodiazepine/Flexeril/Phenergan) 1. You have been prescribed narcotic medications, it does have acetaminophen/Tylenol/paracetamol in it, DO NOT TAKE MORE THAN 4,00mg in 24 hours of Tylenol. TRAMADOL DOES NOT CONTAIN TYLENOL 2. Please understand that we cannot provide further refills of narcotics, benzodiazepines or controlled substances through the ED and her pain management will need to be through your provider. 3. While on these medications you cannot drive or operate heavy machinery. 4. You cannot sign legal documents or perform any duties such as this. 5. As long as you're taking opiate pain medications he should also be taking a stool softener such as Colace, Dulcolax, MiraLAX or prune juice, to help avoid constipation. Prescriptions: New prednisone 5 mg tablet 5 mg PO DAILY Qty: 30 0RF Rx Instructions: 20 mg once a day for 3 days, 15 mg once a day for 3 days, 10 mg once a day for 3 days, 5 mg twice a day for 3 days hydrocodone-acetaminophen 5-325 mg tablet 1 tab PO Q6H PRN (Reason: pain) Qty: 10 0RF cephalexin 500 mg capsule 500 mg PO BID 7 Days Qty: 10 0RF No Action metformin 500 mg tablet extended release 24 hr 1,000 mg PO BID 30 Days Qty: 120 2RF Rx Instructions: Take 1 tabs (1000mg) twice per day with meals Xulane 150-35 mcg/24 hr patch weekly 1 patch transdermal QWEEK Qty: 12 4RF Rx Instructions: apply once weekly for 3 weeks of a 4-week cycle lisinopril 5 mg tablet 5 mg PO DAILY Qty: 90 3RF Rx Instructions: Take 1 tab at bedtime daily. Please check your BP daily. (DME) Blood Pressure Cuff - Omron upper arm See Rx Instructions .Route .MEDSUPPLY Qty: 1 0RF Rx Instructions: Take your blood pressure daily as directed vitamin B complex [B Complex-Vitamin B12] Tablet 1 tab PO DAILY Hair,Skin and Nails Tablet 1 tab PO DAILY calcium carbonate [Calcium 600] 600 mg calcium (1,500 mg) tablet 600 mg PO BID Qty: 180 0RF cholecalciferol (vitamin D3) 25 mcg (1,000 unit) capsule 25 mcg PO DAILY (DME) Glucometer See Rx Instructions .Route .MEDSUPPLY Qty: 1 0RF Rx Instructions: Check FSBG daily and as needed. BRAND PER INSURANCE ([facility] [place]) glucose test strips See Rx Instructions .Route .MEDSUPPLY Qty: 100 3RF Rx Instructions: Check FSBG daily and as needed. BRAND PER INSURANCE ([facility] [place]) lancette device See Rx Instructions .Route .MEDSUPPLY Qty: 1 0RF Rx Instructions: Check blood glucose daily and as needed. BRAND PER INSURANCE ([facility] [place]) Lancettes See Rx Instructions .Route .MEDSUPPLY Qty: 100 3RF Rx Instructions: Check FSBG daily and as needed. BRAND PER INSURANCE omega-3 acid ethyl esters [Lovaza] 1 gram capsule 1 cap PO BID Qty: 180 3RF Rx Instructions: Take 1 tab twice per day for elevated triglycerides valacyclovir 1 gram tablet 1,000 mg PO BID Qty: 20 3RF rosuvastatin 5 mg tablet 5 mg PO DAILY Qty: 90 3RF Rx Instructions: Take 1 tab daily for elevated cholesterol. spironolactone 100 mg tablet 100 mg PO QAM Qty: 90 3RF Jardiance 10 mg tablet 10 mg PO QAM Qty: 90 3RF Rx Instructions: Take 1 tab daily with meal ferrous sulfate [FeroSul] 325 mg (65 mg iron) tablet 325 mg PO BID bupropion HCl 150 mg tablet extended release 24 hr 300 mg PO QAM Qty: 180 3RF Rx Instructions: Take 1 tab each morning x2 weeks, then increase as tolerated to 2 tabs (300mg) daily (DME) blood pressure monitor [Blood Pressure Kit] Kit See Rx Instructions .Route Qty: 1 0RF Rx Instructions: As directed naproxen 500 mg tablet 500 mg PO BID PRN (Reason: Pain (Scale Score 1-3)) prednisone 10 mg tablet See Rx Instructions .ROUTE .COMPLEX Qty: 147 0RF Rx Instructions: 60 mg (6 pills) daily for 1 week, then taper by subtracting 1 pill per week over 6 weeks until pills run out (ex. 5 pills x1 wk, 4 pills x1 week, 3 pills x1 wk, etc.) Referrals: Cecy Schneider ARNP [Primary Care Provider] - Stand Alone Forms: Patient Portal/API
--- NOTE | 2023-05-06 16:59 | DI.CT.S_ITS ---
PROCEDURE: CT ABDOMEN PELVIS W CON INDICATIONS: RLQ possible Crohn's TECHNIQUE: After the administration of oral and IV contrast, axial sections were acquired from the lung bases to the pubic symphysis. Coronal and sagittal reformats were performed. For radiation dose reduction, the following was used: automated exposure control, adjustment of mA and/or kV according to patient size. COMPARISON: [facility], CT, CT ABDOMEN PELVIS W CON, 04/11/2023, 13:14. [facility], CT, CT ABDOMEN PELVIS W CON, 04/06/2022, 10:55. [facility], CT, CT ABDOMEN PELVIS W CON, 05/17/2019, 1:12. [facility], CT, CT ABDOMEN PELVIS W CON, 05/23/2019, 1:09. FINDINGS: Image quality: This study is limited by body habitus. Lung bases: Unremarkable. Heart: No significant findings. ABDOMEN: Liver: Unremarkable. Gallbladder: Unremarkable. Biliary ducts: Unremarkable. Pancreas: Unremarkable. Spleen: Unremarkable. Adrenal Glands: Unremarkable. Kidneys and Ureters: Unremarkable. Stomach and Bowel: In this patient with this given history, scrutiny is given to the right lower quadrant. A normal appendix is partially seen. No focal right lower quadrant inflammatory changes are seen. No significant abnormality the terminal ileum can be seen. No dilated loops of small bowel are seen. No significant gastric abnormality is seen. The stomach demonstrates no significant abnormality. Peritoneum: No abnormal intraperitoneal fluid. No free air. Ventral Wall: No hernia. Abdominal Nodes: No retroperitoneal or mesenteric adenopathy by size criteria. Vessels: Aorta and inferior vena cava are normal in size. PELVIS: Pelvic Organs: The uterus appears normal for age. No adnexal masses are seen. Bladder: Unremarkable. Pelvic Nodes: No enlarged lymph nodes. Miscellaneous: No inguinal hernias are seen. Bones: Unremarkable. IMPRESSION: No focal right lower quadrant inflammatory changes are seen. No findings of active Crohn's disease can be seen. Normal appendix. Dictated by: Santosh Mart M.D. on 05/06/2023 at 16:31 Approved by: Santosh Mart M.D. on 05/06/2023 at 16:34
[2023-05-06] MEDS: methylPREDNISolone 125 MG/2 ML VIAL IV (17:09)
[2023-05-06] MEDS: HYDROCODONE/ACET 5/325 PREPACK 1 BOTTLE MISC (18:48)
== END 2023-05-06 18:51 | disposition home or self-care (01) ==
PROVIDERS: Emergency Provider Emergency Medicine; PCP Nurse Practitioner
DX: R10.31 Right lower quadrant pain (principal); Z79.899 Other long term (current) drug therapy
CPT/HCPCS: 36415; 74177; 80053; 81003; 81015; 81025; 83605; 83690; 84145; 85025; 87040; 87077; 87086; 87186; 96361; 96374; 96375; 96376; 99284; J1170; J2405; J2930; Q9967

== ENCOUNTER → 2023-05-24 15:28 | Outpatient (CLI) | payer OTHER, MEDICAID, SELFPAY ==
[2023-04-11 16:20] VITALS: BMI 38.3
[2023-05-25 15:29] LABS: Candida species Positive (Negative); Gardnerella vaginalis Positive (Negative); Trichomoas vaginalis Negative (Negative)
== END ==
PROVIDERS: PCP Nurse Practitioner; Visit Provider Specialist
DX: N89.8 Other specified noninflammatory disorders of vagina (principal)
CPT/HCPCS: 87480; 87510; 87660

== ENCOUNTER 2023-11-12 19:37 | Emergency (ER) | payer OTHER, MEDICAID, SELFPAY ==
[2023-08-28 17:45] VITALS: BMI 38.3
[2023-11-12] VITALS (8 sets, daily range): BP systolic 130–169; BP diastolic 68–84; PULSE 113–127; RESP 18; TEMP 36.7–36.8; O2SAT 92–97; BMI 38.4
[2023-11-12 20:15] LABS: Add Manual Diff / Slide Review NO; Basophils Absolute Auto 100 /uL (0-100); Basophils Percent Auto 0.7 % (0-2); Eosinophils Absolute Auto 400 /uL (0-450); Eosinophils Percent Auto 2.7 % (2-4); Hematocrit 42.9 % (36-46); Hemoglobin 14.3 g/dL (12.0-16.0); Lymphocytes Absolute Auto 3000 /uL (1100-4500); Lymphocytes Percent Auto 22.9 % (25-40); Mean Corpuscular HGB Conc 33.2 % (30-36); Mean Corpuscular Volume 81.4 fL (80-100); Monocytes Absolute Auto 1000 /uL (0-900); Monocytes Percent Auto 7.3 % (3-14); Neutrophils Absolute Auto 8900 /uL (1500-7000); Neutrophils Percent Auto 66.4 % (50-75); Platelet Count 381 X10^3/uL (150-400); Red Blood Cell Count 5.27 X10^6/uL (4.0-5.2); White Blood Cell Count 13.3 X10^3/uL (4.5-11.0)
[2023-11-12 20:22] LABS: Alanine Aminotransferase 26 IU/L (<35); Albumin 3.9 g/dL (3.5-5.0); Albumin Globulin Ratio 1.1 (1.0-2.8); Alkaline Phosphatase 96 U/L (38-126); Aspartate Aminotransferase 24 IU/L (14-36); Bilirubin Total 0.5 mg/dL (0.2-1.3); Blood Urea Nitrogen 12 mg/dL (7-17); Carbon Dioxide 23 mmol/L (22-32); Chloride 100 mmol/L (98-107); Estimated Glomerular Filt Rate > 60 mL/min (>60); Globulin 3.6 g/dL (1.7-4.1); HEMOLYSIS 16 (0-50); Lipase 70 U/L (23-300); Potassium 4.3 mmol/L (3.4-5.1); Sodium 135 mmol/L (137-145); Total Protein 7.5 g/dL (6.3-8.2)
[2023-11-12 20:31] LABS: Glucose 489 mg/dL (70-100)
--- NOTE | 2023-11-12 22:31 | PC.NURSE ---
Pt states she has not been taking her diabetes medication of late d/t insurance issues as well as losing one of the prescriptions.
--- NOTE | 2023-11-12 23:30 | ED_ITS ---
HPI - Abdominal Pain General Chief Complaint: Abdominal Pain Stated Complaint: lower abd pain Time Seen by Provider: 11/12/23 23:17 Source: patient Mode of arrival: Ambulatory History of Present Illness HPI narrative: Patient with history of PCOS and multiple abnormal ovarian cysts comes to the ED today because of severe bilateral lower abdominal pain onset about 11:00 a.m. this morning. She was able to stay at work but symptoms have gotten worse. She feels lightheaded and dizzy. Nausea but no vomiting. No fever. No dysuria urgency or frequency. She has not at risk for . No chest symptoms. She suspects an ovarian cyst. Related Data Home Medications Medication Instructions Recorded Confirmed naproxen 500 mg tablet 500 mg PO BID PRN Pain (Scale 01/15/20 10/07/23 Score 1-3) cholecalciferol (vitamin D3) 25 25 mcg PO DAILY 02/01/22 10/07/23 mcg (1,000 unit) capsule vitamin B complex (B 1 tab PO DAILY 02/01/22 10/07/23 Complex-Vitamin B12 tablet) ferrous sulfate 325 mg (65 mg 325 mg PO BID 04/18/23 10/07/23 iron) tablet (FeroSul) Previous Rx's Medication Instructions Recorded Glucometer #1 ea 08/22/21 Lancettes #100 ea 08/22/21 lancette device #1 ea 08/22/21 calcium carbonate 600 mg calcium 600 mg PO BID #180 tabs 02/01/22 (1,500 mg) tablet (Calcium) empagliflozin 10 mg tablet 10 mg PO QAM #90 tabs 07/19/22 (Jardiance) omega-3 acid ethyl esters 1 gram 1 cap PO BID #180 caps 07/19/22 capsule (Lovaza) rosuvastatin 5 mg tablet 5 mg PO DAILY #90 tabs 07/19/22 spironolactone 100 mg tablet 100 mg PO QAM #90 tabs 07/19/22 blood pressure monitor (Blood #1 ea 04/18/23 Pressure Kit) hydrocodone 5 mg-acetaminophen 325 1 tab PO Q6H PRN pain #10 tabs 05/06/23 mg tablet glucose test strips #100 ea 05/23/23 norelgestromin 150 mcg-e.estradiol 1 patch transdermal QWEEK #12 ea 05/24/23 35 mcg/24 hr weekly transderm patch (Xulane) pen needle, diabetic 32 gauge x #100 ea 06/19/23 (1st Tier Unifine Pentips Plus) valacyclovir 1 gram tablet 1,000 mg PO BID herpes #20 tabs 08/29/23 pioglitazone 15 mg tablet 15 mg PO DAILY #90 tabs 09/05/23 duloxetine 30 mg capsule,delayed 30 mg PO BEDTIME #90 caps 09/12/23 release ondansetron 8 mg disintegrating 8 mg PO Q8H PRN nausea and 09/12/23 tablet vomiting #60 tabs metformin 500 mg tablet,extended 1,000 mg (2 x 500 mg) PO BID #120 10/28/23 release 24 hr tabs liraglutide 0.6 mg/0.1 mL (18 mg/3 1.8 mg (0.3 mL) SUBCUT Q24H #6 mL 11/12/23 mL) subcutaneous pen injector (eInstruction by [employer] 2-Royal) Allergies Allergy/AdvReac Type Severity Reaction Status Date / Time propofol AdvReac Severe Difficulty Verified 11/12/23 19:53 Breathing Patient History Medical History (Updated 11/13/23 @ 01:02 by Oleg Chun MD) Depression Class 3 obesity Iron deficiency anemia Crohn disease Sepsis Incomplete miscarriage Incomplete miscarriage with blood clot Mixed hyperlipidemia due to type 2 diabetes mellitus Hypertension Diabetes mellitus type 2 in obese Miscarriage within last 12 months Pelvic pain Blood per rectum PCOS (polycystic ovarian syndrome) Sciatic nerve pain Hemorrhoids Tonsillitis Strep pharyngitis Surgical History History of Hx of dilation and curettage Family History Grandmother Hypertension Cancer Stroke Grandfather Diabetes mellitus Stroke Social History household members: family Smoking Status: Never smoker alcohol intake: current substance use type: does not use Smoking Status: Never smoker alcohol intake frequency: holidays/special occasions only Substance Use Type: marijuana Exam Narrative Exam Narrative: GENERAL: Alert, cooperative and in no distress. HEAD: Atraumatic. Normocephalic. EYES: Sclera are clear without icterus. ENT: No rhinorrhea. NECK: Supple. Full range of motion. CARDIOVASCULAR: Normal rate and rhythm without murmur gallop or rub. RESPIRATORY: Clear to auscultation. Breath sounds equal bilaterally. No wheezes, rales, or rhonchi. GASTROINTESTINAL: Abdomen soft, mild diffuse tenderness, some guarding EXTREMITIES: No edema, full range of motion. No obvious trauma. NEURO: Nonfocal examination, normal speech SKIN: No rash or erythema of visible areas PSYCH: Normally oriented. Normal range of affect. Appropriate behavior Initial Vital Signs Initial Vital Signs: Vital Signs Temperature 98.0 F 11/12/23 19:50 Pulse Rate 125 H 11/12/23 19:50 Respiratory Rate 18 11/12/23 19:50 Blood Pressure 146/82 H 11/12/23 19:50 Pulse Oximetry 94 11/12/23 19:50 Oxygen Delivery Method Room Air 11/12/23 19:50 Course Orders Ordered: ED Orders 11/12/23 20:00 Complete Blood Count AUTO DIFF Stat Comprehensive Metabolic Panel Stat Lipase Stat 11/12/23 23:33 US pelvic limited Stat Ondansetron HCl (Ondansetron 4 Mg/2 Ml Inj) 4 mg IV NOW PRN PRN Reason: Nausea And Vomiting Last Admin: 11/12/23 23:42 Dose: 4 mg Documented By: AWILDA Discontinued Medications Ketorolac Tromethamine (Ketorolac 30 Mg/Ml Vial) 30 mg IV NOW ONE Stop: 11/12/23 23:33 Last Admin: 11/12/23 23:42 Dose: 30 mg Documented By: AWILDA Ondansetron HCl (Ondansetron 4 Mg Odt) 4 mg PO NOW ONE Stop: 11/12/23 23:33 Oxycodone HCl (Oxycodone Ir 5 Mg Tablet) 5 mg PO NOW ONE Stop: 11/12/23 23:33 Last Admin: 11/12/23 23:43 Dose: 5 mg Documented By: SB Vital Signs Vital signs: Vital Signs - 8 hr 11/12/23 19:50 11/12/23 21:27 11/12/23 22:13 Temperature 98.0 F Pulse Rate 125 H 127 H Respiratory Rate 18 18 Blood Pressure 146/82 H 153/74 H 137/84 Pulse Oximetry 94 97 Oxygen Delivery Method Room Air Room Air 11/12/23 22:13 11/12/23 22:30 11/12/23 22:30 Temperature Pulse Rate 119 H 116 H Respiratory Rate Blood Pressure 130/68 Pulse Oximetry 96 93 Oxygen Delivery Method 11/12/23 22:32 11/12/23 23:00 11/12/23 23:01 Temperature 98.3 F Pulse Rate 117 H 113 H Respiratory Rate Blood Pressure Pulse Oximetry 93 93 Oxygen Delivery Method 11/12/23 23:01 11/12/23 23:30 11/12/23 23:30 Temperature Pulse Rate 114 H Respiratory Rate 18 18 Blood Pressure 169/79 H 132/70 Pulse Oximetry 92 Oxygen Delivery Method MDM - Abdominal Pain Lab Data 11/12/23 20:00 11/12/23 20:00 Labs: Lab Results 11/12/23 Range/Units 20:00 WBC 13.3 H (4.5-11.0) X10^3/uL RBC 5.27 H (4.0-5.2) X10^6/uL Hgb 14.3 (12.0-16.0) g/dL Hct 42.9 (36-46) % MCV 81.4 (80-100) fL MCH 27.0 (26-34) PG MCHC 33.2 (30-36) % RDW 15.0 H (11.6-14.8) % Plt Count 381 (150-400) X10^3/uL Neut % (Auto) 66.4 (50-75) % Lymph % (Auto) 22.9 L (25-40) % [place] % (Auto) 7.3 (3-14) % Eos % (Auto) 2.7 (2-4) % Baso % (Auto) 0.7 (0-2) % Neut # (Auto) 8900 H (7404-1425) /uL Lymph # (Auto) 3000 (6040-0792) /uL [place] # (Auto) 1000 H (0-900) /uL Eos # (Auto) 400 (0-450) /uL Baso # (Auto) 100 (0-100) /uL Sodium 135 L (137-145) mmol/L Potassium 4.3 (3.4-5.1) mmol/L Chloride 100 (98-107) mmol/L Carbon Dioxide 23 (22-32) mmol/L BUN 12 (7-17) mg/dL Creatinine 0.50 L (0.52-1.04) mg/dL Estimated GFR > 60 (>60) mL/min BUN/Creatinine Ratio 24.0 H (6-22) Glucose 489 H* (70-100) mg/dL Calcium 9.0 (8.4-10.2) mg/dL Total Bilirubin 0.5 (0.2-1.3) mg/dL AST 24 (14-36) IU/L ALT 26 (<35) IU/L Alkaline Phosphatase 96 (38-126) U/L Total Protein 7.5 (6.3-8.2) g/dL Albumin 3.9 (3.5-5.0) g/dL Globulin 3.6 (1.7-4.1) g/dL Albumin/Globulin Ratio 1.1 (1.0-2.8) Lipase 70 (23-300) U/L Point of care testing: Point of Care Testing Test Results Negative Urine Dip Bedside Urine Glucose 1000 mg/dl Bedside Urine Bilirubin - Negative Bedside Urine Ketone - Negative Urine Specific [place] 1.015 Bedside Urine Occult Blood - Negative Bedside Urine pH 6.0 Bedside Urine Protein - Negative Bedside Urine Urobilinogen +/- 1mg Bedside Urine Nitrite - Negative Bedside Urine Leukocytes - Negative Esterase MDM Narrative Medical decision making narrative: Patient with history of hemorrhagic ovarian cyst requiring surgery. With symptoms similar to same. Will workup for same with lab, urine and ultrasound Ultrasound is negative. Laboratory data is reassuring. Glucose is elevated but other than that things look pretty good. No evidence of urinary tract infection. I think symptomatic control is safe and appropriate for the short term. White blood cell count is mildly elevated but not nearly as high as it typically is. She completed a course of prednisone a few days ago. Discharge Plan Departure Patient Disposition: Home Clinical Impression: Hyperglycemia, Pelvic pain Activity Restrictions/Additional Instructions: Thank you for trusting us with your care. No immediately dangerous cause for your symptoms was identified after ultrasound and laboratory and urinary testing. Blood sugar is quite high and I recommend you treat this as according to our usual protocol. Manage the pain with ibuprofen 600 mg taken together with Tylenol 1000 mg every 6 hours. I do recommend follow-up in the next 1 or 2 days if the pain persists. Follow-up right away for high fever or repeated vomiting or other severe symptoms. Prescriptions: No Action (DME) pen needle, diabetic [1st Tier Unifine Pentips Plus] 32 gauge x 5/32 needle See Rx Instructions .Route Qty: 100 12RF Rx Instructions: Use to check BG levels QID valacyclovir 1 gram tablet 1,000 mg PO BID Qty: 20 3RF metformin 500 mg tablet extended release 24 hr 1,000 mg PO BID Qty: 120 1RF Victoza 2-Royal 0.6 mg/0.1 mL (18 mg/3 mL) pen injector 1.8 mg SUBCUT Q24H Qty: 6 3RF vitamin B complex [B Complex-Vitamin B12] Tablet 1 tab PO DAILY calcium carbonate [Calcium 600] 600 mg calcium (1,500 mg) tablet 600 mg PO BID Qty: 180 0RF cholecalciferol (vitamin D3) 25 mcg (1,000 unit) capsule 25 mcg PO DAILY Xulane 150-35 mcg/24 hr patch weekly 1 patch transdermal QWEEK Qty: 12 4RF Rx Instructions: apply once weekly for 3 weeks of a 4-week cycle ondansetron 8 mg tablet,disintegrating 8 mg PO Q8H PRN (Reason: nausea and vomiting) Qty: 60 2RF Rx Instructions: Take 1 tab SL every 8 hours as needed for nausea duloxetine 30 mg capsule,delayed release(DR/EC) 30 mg PO BEDTIME Qty: 90 3RF (DME) Glucometer See Rx Instructions .Route .MEDSUPPLY Qty: 1 0RF Rx Instructions: Check FSBG daily and as needed. [place] [place]ancette [place] See Rx Instructions .Route .MEDSUPPLY Qty: 1 0RF Rx Instructions: Check blood glucose daily and as needed. [place] [place] Lancettes See Rx Instructions .Route .MEDSUPPLY Qty: 100 3RF Rx Instructions: Check FSBG daily and as needed. BRAND PER INSURANCE omega-3 acid ethyl esters [Lovaza] 1 gram capsule 1 cap PO BID Qty: 180 3RF Rx Instructions: Take 1 tab twice per day for elevated triglycerides rosuvastatin 5 mg tablet 5 mg PO DAILY Qty: 90 3RF Rx Instructions: Take 1 tab daily for elevated cholesterol. spironolactone 100 mg tablet 100 mg PO QAM Qty: 90 3RF Jardiance 10 mg tablet 10 mg PO QAM Qty: 90 3RF Rx Instructions: Take 1 tab daily with meal ferrous sulfate [FeroSul] 325 mg (65 mg iron) tablet 325 mg PO BID (DME) blood pressure monitor [Blood Pressure Kit] Kit See Rx Instructions .Route Qty: 1 0RF Rx Instructions: As directed (DME) glucose test strips See Rx Instructions .Route .MEDSUPPLY Qty: 100 3RF Rx Instructions: Check FSBG daily and as needed. BRAND PER INSURANCE pioglitazone 15 mg tablet 15 mg PO DAILY Qty: 90 0RF naproxen 500 mg tablet 500 mg PO BID PRN (Reason: Pain (Scale Score 1-3)) hydrocodone-acetaminophen 5-325 mg tablet 1 tab PO Q6H PRN (Reason: pain) Qty: 10 0RF Referrals: Cecy Schneider ARNP [Primary Care Provider] - Stand Alone Forms: Patient Portal/API
--- NOTE | 2023-11-12 23:33 | DI.US.S_ITS ---
PROCEDURE: US PELVIC COMPLETE INDICATIONS: PAIN TECHNIQUE: Real-time scanning was performed of the pelvic organs, with image documentation. Additional endovaginal scanning was necessary due to incomplete visualization of the adnexal and endometrial structures by transabdominal scanning. COMPARISON: [facility], US, US PELVIC COMPLETE, 04/03/2023, 9:59. FINDINGS: Uterus: Uterus is anteverted and normal in size at 7.6 x 4.1 x 5.1 cm. The myometrium is homogeneous. The endometrium measures 7 mm combined thickness. Ovaries: The right ovary measures 2.0 x 3.0 x 3.7 cm, with a calculated ovarian volume of 11.6 cc. The left ovary measures 3.0 x 2.1 x 3.4 cm, with a calculated ovarian volume of 11 cc. The ovaries have a normal sonographic appearance. Less than 12 follicles can be seen in each ovary. No adnexal masses are seen. Normal vascular waveforms identified bilaterally. Other: No pathologic free abdominal or pelvic fluid. IMPRESSION: Normal sonographic evaluation of the pelvis. No evidence for ovarian torsion. We strive to produce accurate, complete, and clear reports of imaging services. To assist us in improving patient care, this report was composed using standard report templates and voice recognition software. Therefore, it may contain abnormal punctuation, insertions and/or omissions. Occasional wrong-word or sound-alike substitutions may occur. Though we review the report and make efforts to correct it, we do recommend that the report be read carefully in proper context to recognize any text inaccuracies. Dictated by: Brandon Alejandro M.D. on 11/13/2023 at 0:59 Approved by: Brandon Alejandro M.D. on 11/13/2023 at 1:10
[2023-11-12] MEDS: KETOROLAC 30 MG/ML VIAL IV (23:42)
[2023-11-12] MEDS: ONDANSETRON 4 MG/2 ML INJ IV (23:42)
[2023-11-12] MEDS: OXYCODONE IR 5 MG TABLET PO (23:43)
[2023-11-13] VITALS: BP 144/86; PULSE 111; O2SAT 97
--- NOTE | 2023-11-13 00:17 | PC.NURSE ---
Ultrasound at bedside.
[2023-11-13 00:30] VITALS: PULSE 114; O2SAT 96
[2023-11-13 00:41] VITALS: BP 134/83; PULSE 109; O2SAT 96
[2023-11-13 01:00] VITALS: BP 122/69; PULSE 107; RESP 18; O2SAT 92
== END 2023-11-13 01:30 | disposition home or self-care (01) ==
PROVIDERS: Emergency Provider Family Medicine Addiction Medicine; PCP Nurse Practitioner
DX: E11.65 Type 2 diabetes mellitus with hyperglycemia (principal); R10.2 Pelvic and perineal pain; R42 Dizziness and giddiness
CPT/HCPCS: 36415; 76830; 76856; 80053; 81003; 81025; 83690; 85025; 93975; 96374; 96375; 99284; J1885; J2405

== ENCOUNTER → 2024-05-04 16:30 | Outpatient (CLI) | payer OTHER, MEDICAID, SELFPAY ==
[2023-08-28 17:45] VITALS: BMI 38.3
[2024-05-04 17:22] LABS: Influenza A - CEPHEID Flu A NEGATIVE (NEGATIVE); Influenza B - CEPHEID Flu B NEGATIVE (NEGATIVE); Respiratory Syncytial Virus Negative (Negative)
[2024-05-04 17:31] LABS: COVID-19 CEPHEID 4-PLEX PCR Negative (Negative)
== END ==
PROVIDERS: PCP Nurse Practitioner; Visit Provider Nurse Practitioner Family
DX: R05.1 Acute cough (principal); J02.9 Acute pharyngitis, unspecified
CPT/HCPCS: 87635; 87400 ×2; 87420; 0241U; 87070; 87147

== ENCOUNTER 2024-05-31 17:58 | Emergency (ER) | payer OTHER, MEDICAID, SELFPAY ==
[2024-05-12 08:44] VITALS: BMI 38.3
[2024-05-31 17:59] VITALS: BP 116/79; PULSE 105; RESP 18; TEMP 36.4; O2SAT 96; BMI 41.5
--- NOTE | 2024-05-31 18:26 | ED_ITS ---
HPI - General Chief complaint: Abdominal Pain Stated complaint: Miscarriage Time Seen by Provider: 05/31/24 18:18 Source: patient Mode of arrival: Family Vehicle Limitations: no limitations History of Present Illness HPI Narrative: 29-year-old with a history of PCOS, diabetes presents by private vehicle from home for pelvic pain. Patient diagnosed with a miscarriage on 05/28/2024 after ultrasound showed no cardiac activity. Patient states that she is in discussion with her OBGYN to schedule a D&C, but her pelvic cramping is persistent. She states she can't tell if this is due to the miscarriage or possible cysts on ovaries. No medications taken at home prior to arrival. Patient has not had any vaginal bleeding. Related Data Home Medications Medication Instructions Recorded Confirmed cholecalciferol (vitamin D3) 25 25 mcg PO DAILY 02/01/22 05/28/24 mcg (1,000 unit) capsule ferrous sulfate 325 mg (65 mg 325 mg PO BID 04/18/23 05/28/24 iron) tablet (FeroSul) vitamin-ferrous sulfate tab PO 05/19/24 05/28/24 27 mg iron-folic acid 0.8 mg tablet Previous Rx's Medication Instructions Recorded Glucometer #1 ea 08/22/21 Lancettes #100 ea 08/22/21 lancette device #1 ea 08/22/21 calcium carbonate (Calcium 600) 600 mg PO BID #180 tabs 02/01/22 blood pressure monitor (Blood #1 ea 04/18/23 Pressure Kit) glucose test strips #100 ea 05/23/23 pen needle, diabetic 32 gauge x #100 ea 06/19/23 5/32 (1st Tier Unifine Pentips Plus) valacyclovir 1 gram tablet 1,000 mg PO BID herpes #20 tabs 08/29/23 metformin 500 mg tablet,extended 1,000 mg (2 x 500 mg) PO BID #120 12/23/23 release 24 hr tabs ondansetron 8 mg disintegrating 8 mg PO TID PRN nausea and 01/16/24 tablet vomiting #90 tabs empagliflozin 10 mg tablet 10 mg PO QAM #90 tabs 02/19/24 (Jardiance) tirzepatide 10 mg/0.5 mL 10 mg (0.5 mL) SUBCUT QWEEK #2 mL 04/09/24 subcutaneous pen injector tirzepatide 5 mg/0.5 mL 5 mg (0.5 mL) SUBCUT QWEEK #2 mL 04/09/24 subcutaneous pen injector tirzepatide 7.5 mg/0.5 mL 7.5 mg (0.5 mL) SUBCUT QWEEK #2 mL 04/09/24 subcutaneous pen injector hydrocodone 5 mg-acetaminophen 325 1 tab PO Q8H PRN pain #8 tabs 05/31/24 mg tablet Allergies Allergy/AdvReac Type Severity Reaction Status Date / Time kiwi Allergy Mild ITCHING Verified 05/28/24 16:22 propofol AdvReac Severe Difficulty Verified 05/28/24 16:22 Breathing Exam Initial Vital Signs Initial Vital Signs: Vital Signs Temperature 97.6 F 05/31/24 17:59 Pulse Rate 105 H 05/31/24 17:59 Respiratory Rate 18 05/31/24 17:59 Blood Pressure 116/79 05/31/24 17:59 Pulse Oximetry 96 05/31/24 17:59 Oxygen Delivery Method Room Air 05/31/24 17:59 Const: Awake, alert, no acute distress, nontoxic appearing Cardiac: regular rate, regular rhythm RESP: unlabored, clear bilaterally, no wheezing GI: Soft, generalized tenderness to deep palpation lower abdomen, no rebound, no guarding Skin: Warm, Dry, intact, no rashes Neuro: AO x3, CN II-XII grossly intact, moves all extremities Course Orders Ordered: ED Orders 05/31/24 18:42 US OB <= 14 weeks fetus Stat 05/31/24 18:57 CBC Auto Diff [Complete Blood Count AUTO DIFF] Stat CMP [Comprehensive Metabolic Panel] Stat UA Complete [Urinalysis and Microscopic] Stat Discontinued Medications Hydrocodone Bitart/Acetaminophen (Hydrocodone/Acet 5/325 Prepack) 1 bottle MISC DIRECTED ONE Stop: 05/31/24 19:52 Last Admin: 05/31/24 19:56 Dose: 1 bottle Documented By: MLMihai Morphine Sulfate (Morphine 4 Mg/Ml Inj) 4 mg IV NOW ONE Stop: 05/31/24 18:43 Last Admin: 05/31/24 19:11 Dose: 4 mg Documented By: RLS Vital Signs Vital signs: Vital Signs - 8 hr 05/31/24 17:59 05/31/24 19:03 05/31/24 19:03 Temperature 97.6 F Pulse Rate 105 H 104 H Respiratory Rate 18 14 Blood Pressure 116/79 125/82 Pulse Oximetry 96 99 Oxygen Delivery Method Room Air Room Air MDM - OB/Uterine Contractions Lab Data 05/31/24 18:57 05/31/24 18:57 Labs: Lab Results 05/31/24 Range/Units 18:57 WBC 13.5 H (4.5-11.0) X10^3/uL RBC 5.06 (4.0-5.2) X10^6/uL Hgb 14.1 (12.0-16.0) g/dL Hct 41.2 (36-46) % MCV 81.5 (80-100) fL MCH 27.8 (26-34) PG MCHC 34.2 (30-36) % RDW 13.8 (11.6-14.8) % Plt Count 330 (150-400) X10^3/uL Neut % (Auto) 66.0 (50-75) % Lymph % (Auto) 24.4 L (25-40) % [place] % (Auto) 6.9 (3-14) % Eos % (Auto) 1.9 L (2-4) % Baso % (Auto) 0.8 (0-2) % Neut # (Auto) 8900 H (7889-2751) /uL Lymph # (Auto) 3300 (6417-0337) /uL [place] # (Auto) 900 (0-900) /uL Eos # (Auto) 300 (0-450) /uL Baso # (Auto) 100 (0-100) /uL Sodium 136 L (137-145) mmol/L Potassium 3.6 (3.4-5.1) mmol/L Chloride 101 (98-107) mmol/L Carbon Dioxide 25 (22-32) mmol/L BUN 7 (7-17) mg/dL Creatinine 0.39 L (0.52-1.04) mg/dL Estimated GFR > 60 (>60) mL/min BUN/Creatinine Ratio 17.9 (6-22) Glucose 240 H (70-100) mg/dL Calcium 9.6 (8.4-10.2) mg/dL Total Bilirubin 0.5 (0.2-1.3) mg/dL AST 30 (14-36) IU/L ALT 25 (<35) IU/L Alkaline Phosphatase 85 (38-126) U/L Total Protein 8.1 (6.3-8.2) g/dL Albumin 4.2 (3.5-5.0) g/dL Globulin 3.9 (1.7-4.1) g/dL Albumin/Globulin Ratio 1.1 (1.0-2.8) Urine Color Yellow Urine Appearance Clear Urine pH 5.5 (4.5-8.0) Ur Specific [place] 1.020 (1.000-1.035) Urine Protein Negative (Negative) Urine Glucose (UA) Negative (Negative) g/dL Urine Ketones Negative (NEGATIVE) Urine Occult Blood Negative (Negative) Urine Nitrate Negative (Negative) Urine Bilirubin Negative (NEGATIVE) Urine Urobilinogen 0.2 (0.2) E.U./dL Ur Leukocyte Esterase Negative (NEGATIVE) Urine RBC None seen (0-5/HPF) Urine WBC None seen (0-5/HPF) Ur Squamous Epith Cells 0-1 /hpf (0-5/HPF) Urine Bacteria None seen (None) Ur Culture Indicated? Cult not indicated Vol Urine Centrifuged 10ml (spun) Imaging Data US - OB: Radiologist's Impression: PROCEDURE: US OB <= 14 WEEKS FETUS INDICATIONS: SEVERE PELVIC CRAMPS, KNOWN MISCARRIAGE OUTSIDE/PRIOR DATING DATA: Last menstrual period (LMP): 03/05/2024. LMP-based estimated date of delivery (GLENROY): 12/10/2024. TECHNIQUE: Real-time scanning was performed of the fetus and maternal pelvic organs, with image documentation. Endovaginal scanning was also performed to better visualize the fetus and maternal ovaries. COMPARISON: [facility], , US OB <= 14 WEEKS FETUS, 04/15/2024, 11:48. [facility], , US OB <= 14 WEEKS FETUS, 05/28/2024, 16:49. FINDINGS: Embryo: Present, with hydrops. Heart rate: 0 beats per minute Maternal organs: Ovaries are not well seen. IMPRESSION: demise with hydrops. No acute abnormality otherwise. We strive to produce accurate, complete, and clear reports of imaging services. To assist us in improving patient care, this report was composed using standard report templates and voice recognition software. Therefore, it may contain abnormal punctuation, insertions and/or omissions. Occasional wrong-word or sound-alike substitutions may occur. Though we review the report and make efforts to correct it, we do recommend that the report be read carefully in proper context to recognize any text inaccuracies. Dictated by: Denilson Martínez M.D. on 05/31/2024 at 19:38 Approved by: Denilson Martínez M.D. on 05/31/2024 at 19:39 [facility] Narrative Medical decision making narrative: Pelvic and lower abdominal pain in patient with known miscarriage. Patient states that she would also like to confirm that the miscarriage is in process. Abdomen is soft, no peritoneal signs. Blood work, ultrasound ordered for assessment. Patient was blood type A positive based on previous results in our computer system. Laboratory work is reviewed, unremarkable. No evidence of urinary tract infection. Electrolytes within normal limits. Ultrasound confirms demise. Ovaries not well visualized. After speaking with the patient she reports that her primary objective in coming to the emergency department was confirming the miscarriage, which is confirmed on ultrasound obtained in the emergency department. Patient already has a plan in place with OBGYN about going forward with potential D&C. Short course of pain medications given to patient. Supportive measures counseled for home. Patient informed of her elevated blood glucose. She states that she has been off of her metformin since finding out about her . She just started retaking this medication and is confident that her blood glucose levels will return to normal after additional time on metformin Discharge Plan Departure Patient Disposition: Home Clinical Impression: Miscarriage, Hyperglycemia Instructions: DI for Miscarriage Activity Restrictions/Additional Instructions: The ultrasound confirmed a miscarriage. A short course pain medications has been sent to the [facility] in [place]. These may cause constipation so take a daily stool softener with the medication. In addition it can cause drowsiness so do not take this medication with alcohol or before driving. Prescriptions: New hydrocodone-acetaminophen 5-325 mg tablet 1 tab PO Q8H PRN (Reason: pain) Qty: 8 0RF No Action (DME) pen needle, diabetic [1st Tier Unifine Pentips Plus] 32 gauge x 5/32 needle See Rx Instructions .Route Qty: 100 12RF Rx Instructions: Use to check BG levels QID valacyclovir 1 gram tablet 1,000 mg PO BID Qty: 20 3RF metformin 500 mg tablet extended release 24 hr 1,000 mg PO BID Qty: 120 2RF Jardiance 10 mg tablet 10 mg PO QAM Qty: 90 3RF Rx Instructions: Take 1 tab daily with meal calcium carbonate [Calcium 600] 600 mg calcium (1,500 mg) tablet 600 mg PO BID Qty: 180 0RF cholecalciferol (vitamin D3) 25 mcg (1,000 unit) capsule 25 mcg PO DAILY tirzepatide 5 mg/0.5 mL pen injector 5 mg SUBCUT QWEEK Qty: 2 1RF Rx Instructions: Inject 5mg weekly x4 weeks weeks 5-8 tirzepatide 7.5 mg/0.5 mL pen injector 7.5 mg SUBCUT QWEEK Qty: 2 0RF Rx Instructions: Week 9-12 tirzepatide 10 mg/0.5 mL pen injector 10 mg SUBCUT QWEEK Qty: 2 0RF Rx Instructions: Week 13-16 vit-ferrous sulfat-FA 27 mg iron- 0.8 mg tablet PO (DME) Glucometer See Rx Instructions .Route .MEDSUPPLY Qty: 1 0RF Rx Instructions: Check FSBG daily and as needed. [place] lancette device See Rx Instructions .Route .MEDSUPPLY Qty: 1 0RF Rx Instructions: Check blood glucose daily and as needed. BR[place] Lancettes See Rx Instructions .Route .MEDSUPPLY Qty: 100 3RF Rx Instructions: Check FSBG daily and as needed. BRAND PER INSURANCE ferrous sulfate [FeroSul] 325 mg (65 mg iron) tablet 325 mg PO BID [place] blood pressure monitor [Blood Pressure Kit] Kit See Rx Instructions .Route Qty: 1 0RF Rx Instructions: As directed [place] glucose test strips See Rx Instructions .Route .MEDSUPPLY Qty: 100 3RF Rx Instructions: Check FSBG daily and as needed. BRAND PER INSURANCE ondansetron 8 mg tablet,disintegrating 8 mg PO TID PRN (Reason: nausea and vomiting) Qty: 90 2RF Rx Instructions: Take 1 tab SL every 8 hours as needed for nausea Referrals: Cecy Schneider ARNP [Primary Care Provider] - Stand Alone Forms: Patient Portal/API, Work Release Note
--- NOTE | 2024-05-31 18:42 | DI.US.S_ITS ---
PROCEDURE: US OB <= 14 WEEKS FETUS INDICATIONS: SEVERE PELVIC CRAMPS, KNOWN MISCARRIAGE OUTSIDE/PRIOR DATING DATA: Last menstrual period (LMP): 03/05/2024. LMP-based estimated date of delivery (GLENROY): 12/10/2024. TECHNIQUE: Real-time scanning was performed of the fetus and maternal pelvic organs, with image documentation. Endovaginal scanning was also performed to better visualize the fetus and maternal ovaries. COMPARISON: [facility], US, US OB <= 14 WEEKS FETUS, 04/15/2024, 11:48. [facility], US, US OB <= 14 WEEKS FETUS, 05/28/2024, 16:49. FINDINGS: Embryo: Present, with hydrops. Heart rate: 0 beats per minute Maternal organs: Ovaries are not well seen. IMPRESSION: demise with hydrops. No acute abnormality otherwise. We strive to produce accurate, complete, and clear reports of imaging services. To assist us in improving patient care, this report was composed using standard report templates and voice recognition software. Therefore, it may contain abnormal punctuation, insertions and/or omissions. Occasional wrong-word or sound-alike substitutions may occur. Though we review the report and make efforts to correct it, we do recommend that the report be read carefully in proper context to recognize any text inaccuracies. Dictated by: Denilson Martínez M.D. on 05/31/2024 at 19:38 Approved by: Denilson Martínez M.D. on 05/31/2024 at 19:39
[2024-05-31 19:03] VITALS: BP 125/82; PULSE 104; RESP 14; O2SAT 99
[2024-05-31 19:06] LABS: Add Manual Diff / Slide Review NO; Basophils Absolute Auto 100 /uL (0-100); Basophils Percent Auto 0.8 % (0-2); Eosinophils Absolute Auto 300 /uL (0-450); Eosinophils Percent Auto 1.9 % (2-4); Hematocrit 41.2 % (36-46); Hemoglobin 14.1 g/dL (12.0-16.0); Lymphocytes Absolute Auto 3300 /uL (1100-4500); Lymphocytes Percent Auto 24.4 % (25-40); Mean Corpuscular HGB Conc 34.2 % (30-36); Mean Corpuscular Hemoglobin 27.8 PG (26-34); Mean Corpuscular Volume 81.5 fL (80-100); Monocytes Absolute Auto 900 /uL (0-900); Monocytes Percent Auto 6.9 % (3-14); Neutrophils Absolute Auto 8900 /uL (1500-7000); Platelet Count 330 X10^3/uL (150-400); Red Blood Cell Count 5.06 X10^6/uL (4.0-5.2); Red Cell Distribution Width 13.8 % (11.6-14.8); White Blood Cell Count 13.5 X10^3/uL (4.5-11.0)
[2024-05-31] MEDS: MORPHINE 4 MG/ML INJ IV (19:11)
[2024-05-31 19:12] LABS: Appearance Urine UA CLEAR; Bilirubin Urine UA NEGATIVE (NEGATIVE); Color Urine UA YELLOW; Glucose Urine UA NEGATIVE (Negative); Ketones Urine UA NEGATIVE (NEGATIVE); Leukocyte Esterase Urine UA NEGATIVE (NEGATIVE); Nitrite Urine UA NEGATIVE (Negative); Occult Blood Urine UA NEGATIVE (Negative); Protein Urine UA NEGATIVE (Negative); Urobilinogen Urine UA 0.2 E.U./dL (0.2)
[2024-05-31 19:17] LABS: Alanine Aminotransferase 25 IU/L (<35); Albumin 4.2 g/dL (3.5-5.0); Albumin Globulin Ratio 1.1 (1.0-2.8); Alkaline Phosphatase 85 U/L (38-126); Aspartate Aminotransferase 30 IU/L (14-36); BUN Creatinine Ratio 17.9 (6-22); Bilirubin Total 0.5 mg/dL (0.2-1.3); Blood Urea Nitrogen 7 mg/dL (7-17); Calcium 9.6 mg/dL (8.4-10.2); Carbon Dioxide 25 mmol/L (22-32); Chloride 101 mmol/L (98-107); Estimated Glomerular Filt Rate > 60 mL/min (>60); Globulin 3.9 g/dL (1.7-4.1); Glucose 240 mg/dL (70-100); HEMOLYSIS < 15 (0-50); Potassium 3.6 mmol/L (3.4-5.1); Sodium 136 mmol/L (137-145); Total Protein 8.1 g/dL (6.3-8.2)
[2024-05-31 19:19] LABS: pH Urine UA 5.5 (4.5-8.0)
[2024-05-31 19:23] LABS: Bacteria Urine None Seen; Culture Indicated Urine Cult Not Indicated; RBC Urine None Seen (0-5/HPF); Squamous Epithelial Cell Urine 0-1 /HPF (0-5/HPF); Urine Volume 10mL (spun); WBC Urine None Seen (0-5/HPF)
[2024-05-31] MEDS: HYDROCODONE/ACET 5/325 PREPACK 1 BOTTLE MISC (19:56)
== END 2024-05-31 20:03 | disposition home or self-care (01) ==
PROVIDERS: Emergency Provider Emergency Medicine; PCP Nurse Practitioner
DX: O03.9 Complete or unspecified spontaneous abortion without complication (principal); E11.65 Type 2 diabetes mellitus with hyperglycemia; Z79.84 Long term (current) use of oral hypoglycemic drugs
CPT/HCPCS: 36415; 76801; 76817; 80053; 81001; 85025; 96374; 99284; J2270

== ENCOUNTER 2024-06-04 09:01 | Day surgery (SDC) | payer OTHER, MEDICAID, SELFPAY ==
[2024-05-12 08:44] VITALS: BMI 38.3
[2024-06-04] VITALS (8 sets, daily range): BP systolic 112–134; BP diastolic 69–84; PULSE 95–116; RESP 14–18; TEMP 36.2–36.6; O2SAT 16–98; BMI 40.8
--- NOTE | 2024-06-04 | PATH_ITS ---
[facility] Accession Number: [id number] No. of containers..01 Tissue . 01 Material submitted: . product of conception - PRODUCTS OF CONCEPTION . 01 Diagnosis: PRODUCTS OF CONCEPTION: Products of conception identified. Outside consultation pending to exclude molar gestation ([facility]); results will be reported as an addendum. MRV 06/09/2024 1412 Local . 01 Electronically signed: . Radha Hernandez MD, Pathologist NPI- [id number] . 01 Gross description: . Received in formalin with two patient identifiers and products of conception, are multiple red-brown spongy soft tissue fragments admixed with hemorrhagic material aggregating to 8.7 x 8.3 x 2.8 cm. No tissue is identified. Linen Room Houseperson sections are submitted in A1-A2. ([id number]) /MRV 06/05/2024 1904 Local . 01 Pathologist provided ICD-10: O02.1 . 01 CPT . 269429 Specimen Comment: A courtesy copy of this report has been sent to [facility] Pathology Performed at: [address] [address], [place], [place] [id number] MD Adrian Parnell MD Phone: [phone]
[2024-06-04] MEDS: MIDAZOLAM 2 MG/2 ML VIAL IV (09:30)
[2024-06-04] MEDS: SCOPOLAMINE 1 PATCH TOP (09:52)
[2024-06-04] MEDS: LACTATED RINGERS 1,000 ML 42 ML IV ×2 (09:54→11:32)
--- NOTE | 2024-06-04 10:05 | PM.HP.1 ---
History of Present Illness History of Present Illness Date Patient Seen: 06/04/24 Time Patient Seen: 10:05 [place] [facility]: 29yo [id number] with newly diagnosed missed measuring 10wks EGA in the last week. She has had some cramping, but denies any vaginal bleeding. [facility] Medical History Sepsis Incomplete miscarriage Incomplete miscarriage with blood clot Mixed hyperlipidemia due to type 2 diabetes mellitus Pelvic pain Blood per rectum Sciatic nerve pain Hemorrhoids Tonsillitis Strep pharyngitis Surgical History [place] teeth extracted H/O ovarian cystectomy History of Hx of dilation and curettage Family History Grandmother Cancer Hypertension Hyperlipidemia Grandfather Diabetes mellitus Stroke Grandmother Stroke Hypertension Aunt Schizophrenia Social History marital status: unmarried,living together number of children: 2 (one child is pt's, the other is her SO's) household members: significant other and children lives independently: Yes caregiver/support person: Yes housing: apartment pets and animals: Yes (cat) education level: college (some college) 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[employer]) current occupational exposures/hazards: No special frankie needs: No travel history: over 6 months ago seatbelt use: always water heater temp set < 120 deg: Yes working smoke detector in home: Yes fire extinguisher in home: No carbon monox detector in home: Yes firearms in home: No do you feel safe at home: Yes Smoking Status: Former smoker second hand exposure: No alcohol intake: never substance use type: does not use and marijuana (not recently, will not use while /) during the past year weight has: decreased > 10 lbs (intentional, fluctuates widely) well-balanced diet: daily or most days daily servings fruits/ve or more times/day caffeine: No Type(s) of exercise: walking and other (hiking) Meds Home Medications and Allergies Home Medications Medication Instructions Recorded Confirmed Type Glucometer #1 ea 08/22/21 05/28/24 Rx Lancettes #100 ea 08/22/21 05/28/24 Rx lancette device #1 ea 08/22/21 05/28/24 Rx calcium carbonate (Calcium 600) 600 mg PO BID #180 tabs 02/01/22 06/04/24 Rx cholecalciferol (vitamin D3) 25 25 mcg PO DAILY 02/01/22 06/04/24 History mcg (1,000 unit) capsule blood pressure monitor (Blood #1 ea 04/18/23 05/28/24 Rx Pressure Kit) ferrous sulfate 325 mg (65 mg 325 mg PO BID 04/18/23 06/04/24 History iron) tablet (FeroSul) glucose test strips #100 ea 05/23/23 05/28/24 Rx pen needle, diabetic 32 gauge x #100 ea 06/19/23 05/28/24 Rx 5/32 (1st Tier Unifine Pentips Plus) valacyclovir 1 gram tablet 1,000 mg PO BID herpes #20 tabs 08/29/23 06/04/24 Rx metformin 500 mg tablet,extended 1,000 mg (2 x 500 mg) PO BID #120 12/23/23 06/04/24 Rx release 24 hr tabs ondansetron 8 mg disintegrating 8 mg PO TID PRN nausea and 01/16/24 06/04/24 Rx tablet vomiting #90 tabs empagliflozin 10 mg tablet 10 mg PO QAM #90 tabs 02/19/24 06/04/24 Rx (Jardiance) tirzepatide 10 mg/0.5 mL 10 mg (0.5 mL) SUBCUT QWEEK #2 mL 04/09/24 06/04/24 Rx subcutaneous pen injector tirzepatide 7.5 mg/0.5 mL 7.5 mg (0.5 mL) SUBCUT QWEEK #2 mL 04/09/24 05/28/24 Rx subcutaneous pen injector vitamin-ferrous sulfate 1 tab PO DAILY 05/19/24 06/04/24 History 27 mg iron-folic acid 0.8 mg tablet hydrocodone 5 mg-acetaminophen 325 1 tab PO Q8H PRN pain #8 tabs 05/31/24 06/04/24 Rx mg tablet Allergies Allergy/AdvReac Type Severity Reaction Status Date / Time kiwi Allergy Mild ITCHING Verified 06/04/24 09:22 propofol AdvReac Severe Difficulty Verified 06/04/24 09:22 Breathing Review of Systems Review of Systems ROS: Yes All systems reviewed with the patient and are negative except as otherwise documented Exam Vital Signs (past 8 hours): - 06/04/24 09:34 Temperature 98 F Pulse Rate 108 H Respiratory Rate 18 Blood Pressure 125/84 Pulse Oximetry 97 Oxygen Delivery Method Room Air Oxygen Delivery Method Room Air Const General: comfortable and No acute distress Resp Effort & Inspection: normal respiratory effort and able to speak in complete sentences Skin General: no rashes or lesions noted Extrem General: normal to inspection Psych Mood: congruent mood Affect: normal affect Objective Imaging US - abdomen: Radiologist's impression: INDICATIONS: SEVERE PELVIC CRAMPS, KNOWN MISCARRIAGE OUTSIDE/PRIOR DATING DATA: Last menstrual period (LMP): 03/05/2024. LMP-based estimated date of delivery (GLENROY): 12/10/2024. TECHNIQUE: Real-time scanning was performed of the fetus and maternal pelvic organs, with image documentation. Endovaginal scanning was also performed to better visualize the fetus and maternal ovaries. COMPARISON: Count Includes [facility], , US OB <= 14 WEEKS FETUS, 04/15/2024, 11:48. [facility], , US OB <= 14 WEEKS FETUS, 05/28/2024, 16:49. FINDINGS: Embryo: Present, with hydrops. Heart rate: 0 beats per minute Maternal organs: Ovaries are not well seen. IMPRESSION: demise with hydrops. No acute abnormality otherwise. We strive to produce accurate, complete, and clear reports of imaging services. To assist us in improving patient care, this report was composed using standard report templates and voice recognition software. Therefore, it may contain abnormal punctuation, insertions and/or omissions. Occasional wrong-word or sound-alike substitutions may occur. Though we review the report and make efforts to correct it, we do recommend that the report be read carefully in proper context to recognize any text inaccuracies. Dictated by: Denilson Martínez M.D. on 05/31/2024 at 19:38 Approved by: Denilson Martínez M.D. on 05/31/2024 at 19:39 Assessment & Plan Assessment and plan (1) Missed : Status: Acute Assessment & Plan narrative: 29yo [id number] with MAB measuring 10wks EGA, here for planned suction D&C. -surgical consent reviewed and signed today; pt accepts blood transfusion if indicated -doxycycline 200mg PO preop for ppx -VTE risk low -discussed chromosomal analysis testing of the POC; pt desires this testing -plan for same day surgery Surgery consent We discussed the risks/benefits/alternatives to the proposed procedure, to include but not limited to: -risk of bleeding, requiring medications, blood products, or other procedures as indicated -risk of infection, requiring prolonged hospital stay or other procedures -risk of injury to other structures, including bowel, bladder, blood vessels, nerves, etc. which may also require additional procedures -risk of adverse reaction to anesthesia or medications -risk of venous thromboembolism and associated sequelae -risk of rare complications such as cardiac arrest, or extremely rarely, Patient is aware of the risks, and desires to proceed with planned surgical procedure. Time-Based Coding :: [30min] spent with patient and on the chart (including review of chart, obtaining history, exam, reviewing outside data, placing orders, documenting exam and treatment plan, and counseling patient) on [06/04/24].
[2024-06-04] MEDS: DOXYCYCLINE HYCLATE 100 MG TABLET 200 MG PO (10:14)
--- NOTE | 2024-06-04 10:42 | SUR.OPER ---
Lithotomy on padded OR bed, head on pillow, arms secured on padded arm boards at <90 degrees abduction. Legs secured in padded yellow fins stirrups.
[2024-06-04] MEDS: TRANEXAMIC ACID 1,000 MG in SODIUM CHLORIDE 0.9% 100 ML 200 MG IV (11:34)
[2024-06-04] MEDS: METHYLERGONOVINE 0.2 MG/ML VIAL IM (11:35)
[2024-06-04] MEDS: SILVER NITRATE STICK 1 EACH TOP (11:37)
--- NOTE | 2024-06-04 11:46 | PM.OP.1 ---
Operative Date/Time/Diagnoses Date of procedure: 06/04/24 Time of procedure: 11:15 Pre-op diagnosis: Missed Post-op diagnosis: same Procedure & Clinicians Procedure: Suction dilation and curettage Same procedure as scheduled: Yes Indications: 29yo measuring 10wks EGA with no cardiac activity, counseled and consented for suction D&C. Surgeon: Marianne Madera Click Yes if Unassisted: Yes Anesthesia Type: General Operative Notes Findings: Moderate amount of tissue obtained. Given 1g TXA and 0.2mg methergine. Slow uterine bleeding noted at the end of the case. Specimen(s): other (products of conception) Estimated Blood Loss (mL): 300 Blood products transfused: none Procedure in detail: The risks, benefits, indications and alternatives of the procedure were reviewed with the patient and informed consent was obtained. The pt was taken to the operating room where general anesthesia was obtained without difficulty. The pt was then placed in the low lithotomy position using gel-padded Kevin Stirrups. SCDs were placed bilaterally for VTE prophylaxis. The pt was then prepped and draped in the sterile fashion. She received 200mg doxycycline PO in preop for prophylaxis. A sterile speculum was placed in the patient?s vagina and the cervix was visualized.? A single tooth tenaculum was used to grasp the anterior lip of the cervix. The cervix was then gently, serially dilated to a size 10mm Hegar dilator. A 10mm curved suction catheter was then introduced into the uterine cavity and gently advanced to the uterine fundus. The suction device was then activated and the catheter was rotated to clear the uterus of products of conception. Several passes were performed with a moderate amount of tissue obtained. A gentle, sharp curettage was then performed until a gritty texture was noted. All tissue was sent to pathology for review. Brisk bleeding was noted, and she was given 1g TXA and one dose of methergine 0.2mg IM, with slow uterine bleeding at the end of the case. The single tooth tenaculum was then removed from the anterior lip of the cervix. The tenaculum sites were noted to be hemostatic with pressure and silver nitrate. All instruments were then removed from the patient?s vagina. At the completion of the case the sponge and needle counts were correct x 2. The patient tolerated the procedure well and was taken to the PACU in stable condition. Per patient request, a portion of tissue was sent for chromosomal analysis. Complications: none Post-operative Condition: stable Disposition: PACU Plan for aftercare: Discharge to home once meeting discharge criteria.
[2024-06-04] MEDS: ONDANSETRON 4 MG/2 ML INJ IV (12:16)
[2024-06-04] MEDS: PROCHLORPERAZINE 10 MG/2 ML VIAL 5 MG IV (12:50)
[2024-06-04] MEDS: KETOROLAC 30 MG/ML VIAL IV (13:04)
[2024-06-05 12:45] LABS: Miscellaneous to LabCorp KIT TEST SENT FEDEX
== END 2024-06-04 13:36 | disposition home or self-care (01) ==
PROVIDERS: Referring Provider Student in an Organized Health Care Education/Training Program; Visit Provider Student in an Organized Health Care Education/Training Program
PROC: (CPT 58120; principal; 2024-06-04 10:15)
DX: O02.1 Missed abortion (principal); Z3A.10 10 weeks gestation of pregnancy
CPT/HCPCS: 59820; 82962; J0330; J0780; J1100; J1885; J2210; J2250; J2405; J2704; J3010

== ENCOUNTER 2024-06-10 18:47 | Emergency (ER) | payer OTHER, MEDICAID, SELFPAY ==
[2024-05-12 08:44] VITALS: BMI 38.3
[2024-06-10] VITALS (13 sets, daily range): BP systolic 101–164; BP diastolic 55–104; PULSE 96–113; RESP 15–27; TEMP 36.8; O2SAT 91–98; BMI 41.1
[2024-06-10 20:35] LABS: Add Manual Diff / Slide Review NO; Basophils Absolute Auto 100 /uL (0-100); Basophils Percent Auto 0.7 % (0-2); Eosinophils Absolute Auto 300 /uL (0-450); Eosinophils Percent Auto 2.3 % (2-4); Hematocrit 36.5 % (36-46); Hemoglobin 12.7 g/dL (12.0-16.0); Lymphocytes Absolute Auto 4000 /uL (1100-4500); Lymphocytes Percent Auto 27.9 % (25-40); Mean Corpuscular HGB Conc 34.7 % (30-36); Mean Corpuscular Hemoglobin 28.3 PG (26-34); Mean Corpuscular Volume 81.4 fL (80-100); Monocytes Absolute Auto 1000 /uL (0-900); Neutrophils Absolute Auto 9000 /uL (1500-7000); Neutrophils Percent Auto 62.1 % (50-75); Platelet Count 375 X10^3/uL (150-400); Red Blood Cell Count 4.49 X10^6/uL (4.0-5.2); Red Cell Distribution Width 13.5 % (11.6-14.8); White Blood Cell Count 14.5 X10^3/uL (4.5-11.0)
[2024-06-10 20:57] LABS: BUN Creatinine Ratio 23.3 (6-22); Blood Urea Nitrogen 10 mg/dL (7-17); Calcium 9.4 mg/dL (8.4-10.2); Carbon Dioxide 26 mmol/L (22-32); Chloride 100 mmol/L (98-107); Estimated Glomerular Filt Rate > 60 mL/min (>60); Glucose 267 mg/dL (70-100); HEMOLYSIS < 15 (0-50); Potassium 3.7 mmol/L (3.4-5.1); Sodium 135 mmol/L (137-145)
[2024-06-10 21:00] LABS: RBC Urine 30-100/HPF (0-5/HPF); Urine Volume 10mL (spun)
[2024-06-10 21:01] LABS: Bacteria Urine Few (2-10); Squamous Epithelial Cell Urine None Seen (0-5/HPF); WBC Urine 5-10/HPF (0-5/HPF)
--- NOTE | 2024-06-10 21:42 | PC.NURSE ---
Pt c/o pain. Dr Damon notified.
[2024-06-10] MEDS: KETOROLAC 30 MG/ML VIAL 15 MG IV (21:54)
[2024-06-10] MEDS: HYDROMORPHONE 0.5 MG INJ IV (21:54)
[2024-06-10] MEDS: SODIUM CHLORIDE 0.9% 1,000 ML 1000 ML IV (21:55)
[2024-06-11] VITALS: BP 98/54; PULSE 95; RESP 22; O2SAT 94
--- NOTE | 2024-06-11 00:01 | ED.GENADULT ---
HPI - General Adult General Chief complaint: Vaginal Bleeding Stated complaint: Bleeding after DNC procedure, Pain, Migraine Time Seen by Provider: 06/10/24 20:10 History of Present Illness HPI narrative: 29-year-old G6 P 105 1 with recent missed 10 weeks gestational age post suction D&C on June 04. Comes in complaining of increasing bleeding, cramping and severe migraine headache. She notes that the migraine has been present since the D&C. She has not reporting fevers, cough, palpitations. She notes that she has having a moderate amount of bleeding was going through approximately a pad an hour without significant clots and no tissue being passed. Related Data Home Medications Medication Instructions Recorded Confirmed cholecalciferol (vitamin D3) 25 25 mcg PO DAILY 02/01/22 06/04/24 mcg (1,000 unit) capsule ferrous sulfate 325 mg (65 mg 325 mg PO BID 04/18/23 06/04/24 iron) tablet (FeroSul) vitamin-ferrous sulfate 1 tab PO DAILY 05/19/24 06/04/24 27 mg iron-folic acid 0.8 mg tablet Previous Rx's Medication Instructions Recorded Glucometer #1 ea 08/22/21 Lancettes #100 ea 08/22/21 lancette device #1 ea 08/22/21 calcium carbonate (Calcium 600) 600 mg PO BID #180 tabs 02/01/22 blood pressure monitor (Blood #1 ea 04/18/23 Pressure Kit) glucose test strips #100 ea 05/23/23 pen needle, diabetic 32 gauge x #100 ea 06/19/23 5/32 (1st Tier Unifine Pentips Plus) valacyclovir 1 gram tablet 1,000 mg PO BID herpes #20 tabs 08/29/23 metformin 500 mg tablet,extended 1,000 mg (2 x 500 mg) PO BID #120 12/23/23 release 24 hr tabs ondansetron 8 mg disintegrating 8 mg PO TID PRN nausea and 01/16/24 tablet vomiting #90 tabs empagliflozin 10 mg tablet 10 mg PO QAM #90 tabs 02/19/24 (Jardiance) tirzepatide 10 mg/0.5 mL 10 mg (0.5 mL) SUBCUT QWEEK #2 mL 04/09/24 subcutaneous pen injector tirzepatide 7.5 mg/0.5 mL 7.5 mg (0.5 mL) SUBCUT QWEEK #2 mL 04/09/24 subcutaneous pen injector hydrocodone 5 mg-acetaminophen 325 1 tab PO Q8H PRN pain #8 tabs 05/31/24 mg tablet norgestimate 0.25 mg-ethinyl See Rx Instructions .Route 06/11/24 estradiol 35 mcg tablet (Sprintec .COMPLEX #28 tabs (28)) oxycodone-acetaminophen 5 mg-325 1 tab PO Q6H PRN pain #14 tabs 06/11/24 mg tablet Allergies Allergy/AdvReac Type Severity Reaction Status Date / Time kiwi Allergy Mild ITCHING Verified 06/04/24 09:22 propofol AdvReac Severe Difficulty Verified 06/04/24 09:22 Breathing Review of Systems Review of Systems Narrative: Pertinent positive and negative findings as per HPI Patient History Medical History Sepsis Incomplete miscarriage Incomplete miscarriage with blood clot Mixed hyperlipidemia due to type 2 diabetes mellitus Pelvic pain Blood per rectum Sciatic nerve pain Hemorrhoids Tonsillitis Strep pharyngitis Surgical History [place] teeth extracted H/O ovarian cystectomy History of Hx of dilation and curettage Family History Grandmother Cancer Hypertension Hyperlipidemia Grandfather Diabetes mellitus Stroke Grandmother Stroke Hypertension Aunt Schizophrenia Social History marital status: unmarried,living together number of children: 2 (one child is pt's, the other is her SO's) household members: significant other and children lives independently: Yes caregiver/support person: Yes housing: apartment pets and animals: Yes (cat) education level: college (some college) 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[employer]) current occupational exposures/hazards: No special frankie needs: No travel history: over 6 months ago seatbelt use: always water heater temp set < 120 deg: Yes working smoke detector in home: Yes fire extinguisher in home: No carbon monox detector in home: Yes firearms in home: No do you feel safe at home: Yes Smoking Status: Former smoker second hand exposure: No alcohol intake: never substance use type: does not use and marijuana (not recently, will not use while /) during the past year weight has: decreased > 10 lbs (intentional, fluctuates widely) well-balanced diet: daily or most days daily servings fruits/ve or more times/day caffeine: No Type(s) of exercise: walking and other (hiking) Smoking Status: Former smoker alcohol intake frequency: holidays/special occasions only Substance Use Type: marijuana Exam Initial Vital Signs Initial Vital Signs: Vital Signs Temperature 98.2 F 06/10/24 19:05 Pulse Rate 113 H 06/10/24 19:05 Respiratory Rate 20 06/10/24 19:05 Blood Pressure 122/85 06/10/24 19:05 Pulse Oximetry 96 06/10/24 19:05 Oxygen Delivery Method Room Air 06/10/24 19:05 General: Alert, appears uncomfortable, able to cooperate fully with exam Respiratory: Able to speak in full sentences, no obvious respiratory distress Skin: No obvious rashes, warm and dry Abdomen: Slightly tender no rebound or guarding Neurologic: Grossly intact no obvious asymmetries or abnormalities Psych: appropriate insight and affect, cooperative Bedside ultrasound done in the emergency department shows a uterus measuring 6.3 x 6.7 x 5.8 cm. Endometrial lining is 1.8 cm with clots and blood appreciated Course Orders Ordered: ED Orders 06/10/24 20:20 Basic Metabolic Panel Stat Complete Blood Count AUTO DIFF Stat 06/10/24 20:30 Urine Culture Stat Urine Microscopic Stat Hydromorphone HCl (Hydromorphone 0.5 Mg Inj) 0.5 mg IV Q15MIN PRN PRN Reason: Pain, Last Admin: 06/10/24 21:54 Dose: 0.5 mg Documented By: Discontinued Medications Sodium Chloride (Normal Saline 0.9%) 1,000 mls @ 1,000 mls/hr IV BOLUS ONE Stop: 06/10/24 22:28 Last Infusion: 06/10/24 22:32 Dose: 1,000 mls/hr Documented By: Infusion: 06/10/24 22:31 Dose: 1,000 mls/hr Documented By: Admin: 06/10/24 21:55 Dose: 1,000 mls/hr Documented By: Ketorolac Tromethamine (Ketorolac 30 Mg/Ml Vial) 15 mg IV NOW ONE Stop: 06/10/24 21:30 Last Admin: 06/10/24 21:54 Dose: 15 mg Documented By: Vital Signs Vital signs: Vital Signs - 8 hr 06/10/24 19:05 06/10/24 20:13 06/10/24 20:14 Temperature 98.2 F Pulse Rate 113 H 105 H Respiratory Rate 20 Blood Pressure 122/85 164/104 H Pulse Oximetry 96 97 Oxygen Delivery Method Room Air 06/10/24 20:14 06/10/24 20:30 06/10/24 20:32 Temperature Pulse Rate 108 H 108 H 106 H Respiratory Rate 21 Blood Pressure Pulse Oximetry 97 98 Oxygen Delivery Method 06/10/24 20:32 06/10/24 21:00 06/10/24 21:01 Temperature Pulse Rate 108 H Respiratory Rate 19 Blood Pressure 153/76 H 164/83 H Pulse Oximetry 98 Oxygen Delivery Method 06/10/24 21:01 06/10/24 21:30 06/10/24 21:31 Temperature Pulse Rate 106 H 108 H Respiratory Rate 23 18 Blood Pressure 136/75 Pulse Oximetry 97 98 Oxygen Delivery Method 06/10/24 21:31 Temperature Pulse Rate 107 H Respiratory Rate 15 Blood Pressure Pulse Oximetry 97 Oxygen Delivery Method Medical Decision Making Lab Data 06/10/24 20:20 06/10/24 20:20 Labs: Lab Results 06/10/24 06/10/24 Range/Units 20:20 20:30 WBC 14.5 H (4.5-11.0) X10^3/uL RBC 4.49 (4.0-5.2) X10^6/uL Hgb 12.7 (12.0-16.0) g/dL Hct 36.5 (36-46) % MCV 81.4 (80-100) fL MCH 28.3 (26-34) PG MCHC 34.7 (30-36) % RDW 13.5 (11.6-14.8) % Plt Count 375 (150-400) X10^3/uL Neut % (Auto) 62.1 (50-75) % Lymph % (Auto) 27.9 (25-40) % [place] % (Auto) 7.0 (3-14) % Eos % (Auto) 2.3 (2-4) % Baso % (Auto) 0.7 (0-2) % Neut # (Auto) 9000 H (0218-3142) /uL Lymph # (Auto) 4000 (4427-1490) /uL [place] # (Auto) 1000 H (0-900) /uL Eos # (Auto) 300 (0-450) /uL Baso # (Auto) 100 (0-100) /uL Sodium 135 L (137-145) mmol/L Potassium 3.7 (3.4-5.1) mmol/L Chloride 100 (98-107) mmol/L Carbon Dioxide 26 (22-32) mmol/L BUN 10 (7-17) mg/dL Creatinine 0.43 L (0.52-1.04) mg/dL Estimated GFR > 60 (>60) mL/min BUN/Creatinine Ratio 23.3 H (6-22) Glucose 267 H (70-100) mg/dL Calcium 9.4 (8.4-10.2) mg/dL Urine RBC 30-100/hpf H (0-5/HPF) Urine WBC 5-10/hpf H (0-5/HPF) Ur Squamous Epith Cells None seen (0-5/HPF) Urine Bacteria Few (2-10) H (None) Vol Urine Centrifuged 10ml (spun) Point of Care Testing Test Results Negative Urine Dip Bedside Urine Glucose 100 mg/dl Bedside Urine Bilirubin - Negative Bedside Urine Ketone - Negative Urine Specific [place] 1.030 Bedside Urine Occult Blood +++ Bedside Urine pH 6.0 Bedside Urine Protein +/- 15 Bedside Urine Urobilinogen +/- 1mg Bedside Urine Nitrite - Negative Bedside Urine Leukocytes +/- 15 Esterase Point of care testing: Point of Care Testing Test Results Negative Urine Dip Bedside Urine Glucose 100 mg/dl Bedside Urine Bilirubin - Negative Bedside Urine Ketone - Negative Urine Specific [place] 1.030 Bedside Urine Occult Blood +++ Bedside Urine pH 6.0 Bedside Urine Protein +/- 15 Bedside Urine Urobilinogen +/- 1mg Bedside Urine Nitrite - Negative Bedside Urine Leukocytes +/- 15 Esterase MDM Narrative Medical decision making narrative: CC: Increased vaginal bleeding and migraine Complicating co-morbidities: D&C for miscarriage on the Data collected from: patient Medical records reviewed: Surgical notes and gynecologic H&P reviewed Differential considered: Retained products, endomyometritis, irritated endometrium Exam documented above, pertinent findings include: Patient is moderately uncomfortable more from her migraine. She has moderate amount of bleeding but not soaking through pads in an hour and not having large blood clots Lab Test results independently reviewed as above. Pertinent findings: CBC shows a 2 point drop in her hemoglobin but still remains in appropriate levels. Chemistries are unremarkable Point of care test is negative Imaging studies independently reviewed: Bedside ultrasound suggests thickened endometrium with blood, no obvious significant retained parts no vascular areas to the endometrium Consultations: Discussion with Dr. Tanvir SANCHEZ. Recommended treatment as already initiated, agreed with IV TXA, recommended control pill taper please see discharge instructions below. Asked patient to call the office to arrange for outpatient follow up Treatments: Fluids, Toradol, Dilaudid, TXA Re-evaluations: Reviewed recommendations, questions are answered Discussion: 29-year-old woman a week post suction D&C for 10 week missed . No evidence of endomyometritis or severe anemia. She was treated with fluids Toradol and Dilaudid for pain both related to cramping into migraine. Migraine is feeling significantly improved. She is given TXA to help with the bleeding. Understands control taper and recommendations to follow up with LAURA tomorrow. At this point antibiotics are not indicated, she does not need additional blood work and does not need hospitalization. She is safe for discharge Discharge Plan Departure Patient Disposition: Home Clinical Impression: Vaginal bleeding, Miscarriage within last 12 months Headache, migraine Qualifiers: Migraine type: unspecified Status migrainosus presence: without status migrainosus Intractability: not intractable Qualified Code(s): G43.909 - Migraine, unspecified, not intractable, without status migrainosus Activity Restrictions/Additional Instructions: Thank you for coming in today, I am sorry this entire miscarriage has been such a traumatic experience for you. At this time, I believe that your endometrial lining is still irritated but does not appear to be infected and the ultrasound we did at the bedside in the emergency department does not suggest significant retained products. In the ER you were given fluids, Toradol and Dilaudid both to help with the miscarriage cramping as well as the migraine. You were given tranexamic acid to help with the vaginal bleeding I have given you a prescription for Sprintec control pills. You need to take them as follows: Take 3 pills all at the same time beginning tomorrow for the next 3 days Then take 2 pills at the same time for the following 3 days Then 1 pill daily until the cycle is complete Please call [address] to schedule an appointment with either Dr. Madera or Dr. Ramey to follow up regarding this ER visit in your continued miscarriage Using 400 mg of ibuprofen (2 [id number] pills) and 1 Tylenol every 6 hours can be very helpful in controlling pain. For severe pain you can use 400 mg of ibuprofen and 1 Percocet. Percocet is a narcotic and will cause constipation, please make sure you are using a stool softener. You have said that you have plenty of Zofran to use at home should you have nausea related to the control pill taper. If you find that you are getting worse or develop any new symptoms, please feel free to return to the emergency department for further evaluation. Prescriptions: New oxycodone-acetaminophen 5-325 mg tablet 1 tab PO Q6H PRN (Reason: pain) Qty: 14 0RF norgestimate-ethinyl estradiol [Sprintec (28)] 0.25-35 mg-mcg tablet See Rx Instructions .ROUTE .COMPLEX Qty: 28 0RF Rx Instructions: 1 tab orally ;take 3 pills 06/11,,take 2 pills 06/14,,24 then take 1 pill daily until gone No Action (DME) pen needle, diabetic [1st Tier Unifine Pentips Plus] 32 gauge x 5/32 needle See Rx Instructions .Route Qty: 100 12RF Rx Instructions: Use to check BG levels QID valacyclovir 1 gram tablet 1,000 mg PO BID Qty: 20 3RF metformin 500 mg tablet extended release 24 hr 1,000 mg PO BID Qty: 120 2RF Jardiance 10 mg tablet 10 mg PO QAM Qty: 90 3RF Patient Comments: per pt, not taken in months Rx Instructions: Take 1 tab daily with meal calcium carbonate [Calcium 600] 600 mg calcium (1,500 mg) tablet 600 mg PO BID Qty: 180 0RF cholecalciferol (vitamin D3) 25 mcg (1,000 unit) capsule 25 mcg PO DAILY tirzepatide 7.5 mg/0.5 mL pen injector 7.5 mg SUBCUT QWEEK Qty: 2 0RF Rx Instructions: Week 9-12 tirzepatide 10 mg/0.5 mL pen injector 10 mg SUBCUT QWEEK Qty: 2 0RF Rx Instructions: Week 13-16 vit-ferrous sulfat-FA 27 mg iron- 0.8 mg tablet 1 tab PO DAILY (DME) Glucometer See Rx Instructions .Route .MEDSUPPLY Qty: 1 0RF Rx Instructions: Check FSBG daily and as needed. BRAND PER INSURANCE ([facility] [place]) lancette device See Rx Instructions .Route .MEDSUPPLY Qty: 1 0RF Rx Instructions: Check blood glucose daily and as needed. BRAND PER INSURANCE ([facility] [place]) Lancettes See Rx Instructions .Route .MEDSUPPLY Qty: 100 3RF Rx Instructions: Check FSBG daily and as needed. BRAND PER INSURANCE ferrous sulfate [FeroSul] 325 mg (65 mg iron) tablet 325 mg PO BID ([facility] [place]) blood pressure monitor [Blood Pressure Kit] Kit See Rx Instructions .Route Qty: 1 0RF Rx Instructions: As directed ([facility] [place]) glucose test strips See Rx Instructions .Route .MEDSUPPLY Qty: 100 3RF Rx Instructions: Check FSBG daily and as needed. BRAND PER INSURANCE ondansetron 8 mg tablet,disintegrating 8 mg PO TID PRN (Reason: nausea and vomiting) Qty: 90 2RF Rx Instructions: Take 1 tab SL every 8 hours as needed for nausea hydrocodone-acetaminophen 5-325 mg tablet 1 tab PO Q8H PRN (Reason: pain) Qty: 8 0RF Stand Alone Forms: Patient Portal/API
[2024-06-11 00:30] VITALS: BP 98/55; PULSE 95; RESP 18; O2SAT 96
[2024-06-11] MEDS: OXYCODONE/APAP 5/325 PREPACK 1 BOTTLE MISC (00:37)
[2024-06-11] MEDS: HYDROMORPHONE 1 MG INJ 0.5 MG IV (00:37)
[2024-06-11] MEDS: TRANEXAMIC ACID 1,000 MG in SODIUM CHLORIDE 0.9% 100 ML 200 MG IV (00:37)
[2024-06-11] MEDS: SODIUM CHLORIDE 0.9% 1,000 ML 1000 ML IV (00:39)
[2024-06-11 01:00] VITALS: BP 102/58; PULSE 92; RESP 18; O2SAT 92
[2024-06-11 01:20] VITALS: BP 119/65; PULSE 66; RESP 15; O2SAT 98
[2024-06-11 01:34] VITALS: BP 112/85; PULSE 85; RESP 18; TEMP 36.9; O2SAT 98
== END 2024-06-11 01:35 | disposition home or self-care (01) ==
PROVIDERS: Emergency Provider Emergency Medicine
DX: O03.6 Delayed or excessive hemorrhage following complete or unspecified spontaneous abortion (principal); G43.909 Migraine, unspecified, not intractable, without status migrainosus
CPT/HCPCS: 80048; 81003; 81015; 81025; 85025; 87077; 87086; 87147; 96361; 96365; 96375; 96376; 99283; 99284; J1170; J1885

== ENCOUNTER 2024-07-16 19:02 | Emergency (ER) | payer OTHER, MEDICAID, SELFPAY ==
[2024-05-12 08:44] VITALS: BMI 38.3
[2024-07-16 19:09] VITALS: BP 133/81; PULSE 112; RESP 16; TEMP 37.1; O2SAT 97; BMI 39.9
[2024-07-16 20:20] VITALS: BP 135/78; PULSE 66; RESP 16; O2SAT 99
--- NOTE | 2024-07-16 20:59 | ED.UPPEXIN ---
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 Can not recall lifting or pulling or fall injury or activities. No prior surgical interventions. No dislocation symptoms. Denies numbness or weakness to arm elbow forearm hands fingers. No other injuries. Denies neck pain. She is tried Tylenol, ibuprofen, Percocet, not having any relief. Related Data Home Medications Medication Instructions Recorded Confirmed cholecalciferol (vitamin D3) 25 25 mcg PO DAILY 02/01/22 06/04/24 mcg (1,000 unit) capsule ferrous sulfate 325 mg (65 mg 325 mg PO BID 04/18/23 06/04/24 iron) tablet (FeroSul) vitamin-ferrous sulfate 1 tab PO DAILY 05/19/24 06/04/24 27 mg iron-folic acid 0.8 mg tablet Previous Rx's Medication Instructions Recorded Glucometer #1 ea 08/22/21 Lancettes #100 ea 08/22/21 lancette device #1 ea 08/22/21 calcium carbonate (Calcium 600) 600 mg PO BID #180 tabs 02/01/22 blood pressure monitor (Blood #1 ea 04/18/23 Pressure Kit) glucose test strips #100 ea 05/23/23 pen needle, diabetic 32 gauge x #100 ea 06/19/23 5/32 (1st Tier Unifine Pentips Plus) valacyclovir 1 gram tablet 1,000 mg PO BID herpes #20 tabs 08/29/23 metformin 500 mg tablet,extended 1,000 mg (2 x 500 mg) PO BID #120 12/23/23 release 24 hr tabs ondansetron 8 mg disintegrating 8 mg PO TID PRN nausea and 01/16/24 tablet vomiting #90 tabs empagliflozin 10 mg tablet 10 mg PO QAM #90 tabs 02/19/24 (Jardiance) tirzepatide 10 mg/0.5 mL 10 mg (0.5 mL) SUBCUT QWEEK #2 mL 04/09/24 subcutaneous pen injector tirzepatide 7.5 mg/0.5 mL 7.5 mg (0.5 mL) SUBCUT QWEEK #2 mL 04/09/24 subcutaneous pen injector hydrocodone 5 mg-acetaminophen 325 1 tab PO Q8H PRN pain #8 tabs 05/31/24 mg tablet norgestimate 0.25 mg-ethinyl See Rx Instructions .Route 06/11/24 estradiol 35 mcg tablet (Sprintec .COMPLEX #28 tabs (28)) oxycodone-acetaminophen 5 mg-325 1 tab PO Q6H PRN pain #14 tabs 06/11/24 mg tablet Allergies Allergy/AdvReac Type Severity Reaction Status Date / Time kiwi Allergy Mild ITCHING Verified 06/04/24 09:22 propofol AdvReac Severe Difficulty Verified 06/04/24 09:22 Breathing Review of Systems Review of Systems Narrative: see HPI Patient History Medical History (Updated 07/16/24 @ 21:18 by Dejuan García MD) Missed (~05/2024) Sepsis Incomplete miscarriage Incomplete miscarriage with blood clot Mixed hyperlipidemia due to type 2 diabetes mellitus Pelvic pain Blood per rectum Sciatic nerve pain Hemorrhoids Tonsillitis Strep pharyngitis Surgical History [place] teeth extracted H/O ovarian cystectomy History of Hx of dilation and curettage Family History Grandmother Cancer Hypertension Hyperlipidemia Grandfather Diabetes mellitus Stroke Grandmother Stroke Hypertension Aunt Schizophrenia Social History marital status: unmarried,living together number of children: 2 (one child is pt's, the other is her SO's) household members: significant other and children lives independently: Yes caregiver/support person: Yes housing: apartment pets and animals: Yes (cat) education level: college (some college) 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[employer]) current occupational exposures/hazards: No special frankie needs: No travel history: over 6 months ago seatbelt use: always water heater temp set < 120 deg: Yes working smoke detector in home: Yes fire extinguisher in home: No carbon monox detector in home: Yes firearms in home: No do you feel safe at home: Yes Smoking Status: Former smoker second hand exposure: No alcohol intake: never substance use type: does not use and marijuana (not recently, will not use while /) during the past year weight has: decreased > 10 lbs (intentional, fluctuates widely) well-balanced diet: daily or most days daily servings fruits/ve or more times/day caffeine: No Type(s) of exercise: walking and other (hiking) Smoking Status: Former smoker alcohol intake frequency: holidays/special occasions only Substance Use Type: does not use Exam Narrative Exam Narrative: GENERAL: Well-developed patient, in mild distress. HEAD: Atraumatic. Normocephalic. EYES: Pupils equal round and reactive. Extraocular motions intact. No scleral icterus. No injection or drainage. ENT: Nose without bleeding, purulent drainage. Throat without erythema, tonsillar hypertrophy or exudate. Airway patent. NECK: Trachea midline. Non tender CARDIOVASCULAR: Regular rate and rhythm without murmurs, gallops, or rubs. RESPIRATORY: Clear to auscultation. Breath sounds equal bilaterally. No wheezes, rales, or rhonchi. GASTROINTESTINAL: Abdomen soft, non-tender, nondistended. EXTREMITIES: Tenderness without gross deformity or anterior fullness to the right shoulder, no tenderness at AC joint, nor along superior trapezius or along rhomboid musculature ipsilateral side. No skin changes redness vesicles or rash. No tenderness to lateral deltoid region or posterior shoulder. No tenderness along right humerus elbow forearm wrist. BACK: Nontender without deformity or crepitance. No flank tenderness. NEURO: AOx3. Motor functions grossly nonfocal SKIN: No rash or erythema of visible areas Initial Vital Signs Initial Vital Signs: Vital Signs Temperature 98.7 F 07/16/24 19:09 Pulse Rate 112 H 07/16/24 19:09 Respiratory Rate 16 07/16/24 19:09 Blood Pressure 133/81 07/16/24 19:09 Pulse Oximetry 97 07/16/24 19:09 Oxygen Delivery Method Room Air 07/16/24 19:09 Course Orders Ordered: ED Orders 07/16/24 21:14 XR shoulder RT min 2V Stat Discontinued Medications Ketorolac Tromethamine (Ketorolac 30 Mg/Ml Vial) 30 mg IM NOW ONE Stop: 07/16/24 21:00 Last Admin: 07/16/24 21:06 Dose: 30 mg Documented By: Vital Signs Vital signs: Vital Signs - 8 hr 07/16/24 19:09 07/16/24 20:20 07/16/24 22:11 Temperature 98.7 F 98.4 F Pulse Rate 112 H 66 75 Respiratory Rate 16 16 18 Blood Pressure 133/81 135/78 133/78 Pulse Oximetry 97 99 97 Oxygen Delivery Method Room Air Room Air Room Air MDM - Extremity Injury (Upper) Imaging Data Extremity x-ray #1: My Impression: No obvious fracture or dislocation Radiologist's Impression: [address] [address] XRay Report Signed Patient: Rosalino Dinh MR#: [id number] : 1995 Acct:[id number] Age/Sex: 29 / F Date of Service: 07/16/24 Loc: ED Accession Number: [id number] Procedure: XR shoulder RT min 2V Ordering Provider: Dejuan García MD PROCEDURE: XR SHOULDER RT MIN 2V INDICATIONS: Anterior right shoulder pain for 2 weeks TECHNIQUE: 3 views of the shoulder were acquired. COMPARISON: None. FINDINGS: Bones: No acute fractures or dislocations. No suspicious bony lesions. Visualized ribs appear intact. Soft tissues: Amorphous calcifications posterior to the humeral head likely related to calcific tendinopathy. IMPRESSION: 1. No acute osseous fracture. 2. Suspected distal rotator cuff calcific tendinopathy. Approved by: Han Casey M.D. on 07/16/2024 at 23:09 [facility] Narrative Medical decision making narrative: 29-year-old right-handed female with ongoing 2 weeks duration right anterior shoulder discomfort, tenderness right anterior shoulder bicipital groove, possible tendonitis vs strain. X-ray requested. IM Toradol dose. X-ray shows no obvious fracture. Symptoms improved, placed in sling. [id number] pain medications discussed. Follow up with Orthopedic surgery if symptoms persist early next week. Return precautions discussed Discharge Plan Departure Patient Disposition: Home Clinical Impression: Right shoulder strain Activity Restrictions/Additional Instructions: Right-handed. Two weeks duration right anterior shoulder pain, no specific injury or new activities. Some tenderness anteriorly along the biceps groove, possible shoulder strain, possible biceps tendinitis versus other. X-ray without any obvious bony underlying injuries or dislocation or separation patterns. Sling. [id number] pain medications, cold packs as needed. Follow up with Orthopedic surgery. If symptoms persist sometimes advanced imaging such as MRI of the shoulder to look for soft tissue structures injuries might be needed, sometimes physical therapy modalities can be helpful as well. Keep moving right shoulder is much as he can tolerate to the limit of pain, so that it does not become frozen. Call for Orthopedic appointment tomorrow in close follow up. Return to this/nearest emergency department for any change worsening symptoms or any concerns prior Prescriptions: No Action (DME) pen needle, diabetic [1st Tier Unifine Pentips Plus] 32 gauge x 5/32 needle See Rx Instructions .Route Qty: 100 12RF Rx Instructions: Use to check BG levels QID valacyclovir 1 gram tablet 1,000 mg PO BID Qty: 20 3RF metformin 500 mg tablet extended release 24 hr 1,000 mg PO BID Qty: 120 2RF Jardiance 10 mg tablet 10 mg PO QAM Qty: 90 3RF Patient Comments: per pt, not taken in months Rx Instructions: Take 1 tab daily with meal calcium carbonate [Calcium 600] 600 mg calcium (1,500 mg) tablet 600 mg PO BID Qty: 180 0RF cholecalciferol (vitamin D3) 25 mcg (1,000 unit) capsule 25 mcg PO DAILY tirzepatide 7.5 mg/0.5 mL pen injector 7.5 mg SUBCUT QWEEK Qty: 2 0RF Rx Instructions: Week 9-12 tirzepatide 10 mg/0.5 mL pen injector 10 mg SUBCUT QWEEK Qty: 2 0RF Rx Instructions: Week 13-16 vit-ferrous sulfat-FA 27 mg iron- 0.8 mg tablet 1 tab PO DAILY (DME) Glucometer See Rx Instructions .Route .MEDSUPPLY Qty: 1 0RF Rx Instructions: Check FSBG daily and as needed. [place] [place] lancette device See Rx Instructions .Route .MEDSUPPLY Qty: 1 0RF Rx Instructions: Check blood glucose daily and as needed. BRAND PER INSURANCE (DME) Lancettes See Rx Instructions .Route .MEDSUPPLY Qty: 100 3RF Rx Instructions: Check FSBG daily and as needed. BRAND PER INSURANCE ferrous sulfate [FeroSul] 325 mg (65 mg iron) tablet 325 mg PO BID (DME) blood pressure monitor [Blood Pressure Kit] Kit See Rx Instructions .Route Qty: 1 0RF Rx Instructions: As directed (DME) glucose test strips See Rx Instructions .Route .MEDSUPPLY Qty: 100 3RF Rx Instructions: Check FSBG daily and as needed. BRAND PER INSURANCE ondansetron 8 mg tablet,disintegrating 8 mg PO TID PRN (Reason: nausea and vomiting) Qty: 90 2RF Rx Instructions: Take 1 tab SL every 8 hours as needed for nausea hydrocodone-acetaminophen 5-325 mg tablet 1 tab PO Q8H PRN (Reason: pain) Qty: 8 0RF oxycodone-acetaminophen 5-325 mg tablet 1 tab PO Q6H PRN (Reason: pain) Qty: 14 0RF norgestimate-ethinyl estradiol [Sprintec (28)] 0.25-35 mg-mcg tablet See Rx Instructions .ROUTE .COMPLEX Qty: 28 0RF Rx Instructions: 1 tab orally ;take 3 pills 06/11,20,21take 2 pills 06/14,23,24 then take 1 pill daily until gone Referrals: Miscellaneous,DoctorMD [Primary Care Provider] - Swapnil Lee MD [Physician] - Stand Alone Forms: Patient Portal/API
[2024-07-16] MEDS: KETOROLAC 30 MG/ML VIAL IM (21:06)
--- NOTE | 2024-07-16 21:14 | DI.RAD.S_ITS ---
PROCEDURE: XR SHOULDER RT MIN 2V INDICATIONS: Anterior right shoulder pain for 2 weeks TECHNIQUE: 3 views of the shoulder were acquired. COMPARISON: None. FINDINGS: Bones: No acute fractures or dislocations. No suspicious bony lesions. Visualized ribs appear intact. Soft tissues: Amorphous calcifications posterior to the humeral head likely related to calcific tendinopathy. IMPRESSION: 1. No acute osseous fracture. 2. Suspected distal rotator cuff calcific tendinopathy. Approved by: Han Casey M.D. on 07/16/2024 at 23:09
[2024-07-16 22:11] VITALS: BP 133/78; PULSE 75; RESP 18; TEMP 36.9; O2SAT 97
== END 2024-07-16 22:12 | disposition home or self-care (01) ==
PROVIDERS: Emergency Provider Emergency Medicine
DX: S46.911A Strain of unspecified muscle, fascia and tendon at shoulder and upper arm level, right arm, initial encounter (principal)
CPT/HCPCS: 73030; 96372; 99283; J1885

== ENCOUNTER → 2024-07-31 14:56 | Outpatient (CLI) | payer OTHER, MEDICAID, SELFPAY ==
[2024-05-12 08:44] VITALS: BMI 38.3
[2024-08-03 10:17] LABS: Candida species Positive (Negative); Gardnerella vaginalis Positive (Negative); Trichomoas vaginalis Negative (Negative)
== END ==
PROVIDERS: Visit Provider Student in an Organized Health Care Education/Training Program
DX: B37.31 Acute candidiasis of vulva and vagina (principal)
CPT/HCPCS: 87480; 87510; 87660

== ENCOUNTER → 2025-01-01 18:33 | Outpatient (CLI) | payer OTHER, SELFPAY ==
[2024-05-12 08:44] VITALS: BMI 38.3
[2025-01-01 20:00] LABS: Influenza A - CEPHEID Flu A NEGATIVE (NEGATIVE); Influenza B - CEPHEID Flu B NEGATIVE (NEGATIVE); Respiratory Syncytial Virus Negative (Negative)
[2025-01-01 20:04] LABS: COVID-19 CEPHEID 4-PLEX PCR Negative (Negative)
== END ==
PROVIDERS: Visit Provider Physician Assistant
DX: J02.9 Acute pharyngitis, unspecified (principal); R05.1 Acute cough
CPT/HCPCS: 0241U; 87070

== ENCOUNTER 2025-01-01 18:47 | Emergency (ER) | payer OTHER, SELFPAY ==
[2024-05-12 08:44] VITALS: BMI 38.3
[2025-01-01 18:55] VITALS: BP 153/106; PULSE 104; RESP 20; TEMP 36.5; O2SAT 97; BMI 38.4
--- NOTE | 2025-01-01 21:48 | PC.NURSE ---
No answer when pt called to be placed in exam room.
== END 2025-01-01 22:02 | disposition left against medical advice (07) ==
PROVIDERS: Emergency Provider Emergency Medicine
DX: R05.9 Cough, unspecified (principal); J02.9 Acute pharyngitis, unspecified
CPT/HCPCS: 0241U; 87070; 87147; 99281

== ENCOUNTER 2025-09-16 15:20 | Emergency (ER) | payer MEDICAID, SELFPAY ==
[2024-05-12 08:44] VITALS: BMI 38.3
[2025-09-16] VITALS (10 sets, daily range): BP systolic 113–132; BP diastolic 75–84; PULSE 96–106; RESP 15; TEMP 36.8; O2SAT 94–97; BMI 38.4
--- OUTSIDE RECORDS SUMMARY | 2025-09-16 15:23 | XMS_ITS | Encounter Summary ---
Author Organization [facility] Address [address] [place] [address] Care Team Providers Care Data Processing Specialist Name Role Phone Selected, No Pcp Primary Care Provider Unavailab Stephany Ngo RN Unavailable Unavailab Steph Arias MD Primary Care Provider eLvi Morales MD Primary Care Provider Dougie Whitaker DMD Unavailable [phone] Bykalie Vaughn DDS Unavailable Bykalie, Vaughn DDS Unavailable Pebbles Garber DDS Unavailable [phone] Dougie Whitaker DMD Unavailable Vaughn Zepeda DDS Unavailable Duane, Vaughn DDS Unavailable Pebbles Garber DDS Unavailable [phone] Pebbles Garber DDS Unavailable [phone] Encounter Details Date Type Department Care Team (Late st Contact Info) Description 11/28/2017 Orders Only [facility] [address] [place] [address] Glucometer, Interface Social History Tobacco Use Types Packs/Day Years Used Date Smoking Tobacco: Never Smokeless Tobacco: Never Alcohol Use Standard Drinks/Week Comments Yes 0 (1 standard drink = 0.6 oz pur e alcohol) occ/prior to Comments Yes Sex and Gender Information Value Date Recorded Sex Assigned at Female 04/10/2021 9:37 AM PDT Legal Sex Female 1:40 PM PDT Gender Identity Female 04/10/2021 9:37 AM PDT Sexual Orientation Straight 04/10/2021 9: 37 AM PDT documented as of this encounter Plan of Treatment Not on file documented as of this encounter Procedures Procedure Name Priority Date/Time Associated Diagnosis Comments O HOME GLUCOSE Routine 11/28/2017 10:07 AM PST documented in this encounter Results * HOME GLUCOSE (11/28/2017 10:07 AM PST) 11/28/2017 10:0 7 AM PST us Interface Glucometer OTHER ORDERABLES Final Resu lt [facility] [address] [place] [id number] [phone] documented in this encounter Visit Diagnoses Not on filedocumented in this encounter Care Teams Data Processing Specialist Relationship Specialty Start Date End Date Selected, No Pcp PCP - General PCP 04/04/17 07/16/18 Steph Yoon MD [address] [facility] [address] [place] [phone] PCP - General Family Medicine 07/17/18 02/10/20 Levi Morales MD [address] [place] [address] PCP - General 02/11/20 Dougie Whitaker DMD [address] [place] [address] PCP - Dental Dentistry 11/03/20 07/17/22 Vaughn Zepeda DDS [id number] [place] [address] PCP - Dental Dentistry 07/18/22 08/20/22 Vaughn Zepeda DDS [address] [address] PCP - Dental Dentistry 08/21/22 07/21/23 Pebbles Garber DDS [address] [place] [address] PCP - Dental Dentistry 07/22/23 09/02/24 Pebbles Garber DDS [address] [place] [address] PCP - Dental 09/03/24 09/03/24 Stephany Yip, IMANI Driver/Guide 05/30/17 Dougie Whitaker DMD [address] [address] Dentist Dentistry 11/03/20 07/17/22 Vaughn Zepeda DDS [address] [place], [place] [id number] Dentist Dentistry 07/18/22 08/20/22 Vaughn Zepeda DDS [address] [place] [address] Dentist Dentistry 08/21/22 07/21/23 Pebbles Garber DDS [address] [place] [address] Dentist Dentistry 07/22/23 documented as of this encounter
--- NOTE | 2025-09-16 17:56 | ED_ITS ---
HPI - Neck Pain/Injury General Chief Complaint: Neck Pain/Injury Stated Complaint: Neck Pain, Stiffness, x1 week Time Seen by Provider: 09/16/25 17:46 Mode of arrival: Ambulatory History of Present Illness HPI Narrative: 30-year-old female who presents to ED tonight with progressively worsening neck pain and stiffness over the past 10 days. Past medical history significant for diabetes, hypertension, PCOS. Patient states that 10 days ago she bought a new mattress and had to dispose of her old mattress on her own. Since then, she has had persistent neck stiffness, but denies headaches, vision changes, fevers, chills, nausea, vomiting. No prior similar epiosodes. She denies any falls or trauma. Denies any focal neurologic deficits. Related Data Home Medications ?Medication ?Instructions ?Recorded ?Confirmed cholecalciferol (vitamin D3) 25 25 mcg PO DAILY 03/16/25 mcg (1,000 unit) capsule Previous Rx's ?Medication ?Instructions ?Recorded Glucometer #1 ea 08/22/21 Lancettes #100 ea 08/22/21 lancette device #1 ea 08/22/21 calcium carbonate (Calcium 600) 600 mg PO BID #180 tab s 02/01/22 glucose test strips #100 ea 05/23/23 pen needle, diabetic 32 gauge x #100 ea 06/19/23 (1st Tier Unifine Pentips Plus) ondansetron 8 mg disintegrating 8 mg PO TID PRN nausea and 01/16/24 tablet vomiting #90 tabs empagliflozin 10 mg tablet 10 mg PO QAM #90 tabs 02/18 (Jardiance) tirzepatide 10 mg/0.5 mL 10 mg (0.5 mL) SUBCUT QWEEK #2 mL 04/09/24 subcutaneous pen injector tirzepatide 7.5 mg/0.5 mL 7.5 mg (0.5 mL) SUBCUT QWEEK #2 mL 04/09/24 subcutaneous pen injector hydrocodone 5 mg-acetaminophen 325 1 tab PO Q8H PRN pa in #8 tabs 05/31/24 mg tablet oxycodone-acetaminophen 5 mg-325 1 tab PO Q6H PRN pain #14 tabs 06/11/24 mg tablet fluconazole 150 mg tablet 150 mg PO .COMPLEX #30 tabs 07/31/24 buspirone 10 mg tablet 10 mg PO BID anxiety #60 tab s 03/16/25 metformin 500 mg tablet,extended 1,000 mg (2 x 500 mg) PO BID #120 03/16/25 release 24 hr tabs valacyclovir 1 gram tablet 1,000 mg PO BID herpes #90 tabs 06/10/25 cyclobenzaprine 5 mg tablet 5 mg PO TID PRN muscle spa sm #14 09/16/25 tabs Allergies Allergy/AdvReac Type Severity Reaction Status Date / Time kiwi Allergy Mild ITCHING Verified 03/16/25 11:14 propofol AdvReac Severe Difficulty Verified 03/16/25 11:14 Breathing Review of Systems Review of Systems Narrative: See HPI. Patient History Medical History (Updated 09/16/25 @ 20:31 by Miriam Rodriguez MD) AURA (generalized anxiety disorder) Flu-like symptoms Missed (~05/2024) Sepsis Incomplete miscarriage Incomplete miscarriage with blood clot Mixed hyperlipidemia due to type 2 diabetes mellitus Pelvic pain Blood per rectum Sciatic nerve pain Hemorrhoids Tonsillitis Strep pharyngitis Surgical History [place] teeth extracted H/O ovarian cystectomy History of Hx of dilation and curettage Family History Grandmother Cancer Hypertension Hyperlipidemia Grandfather Diabetes mellitus Stroke Grandmother Stroke Hypertension Aunt Schizophrenia Social History marital status: unmarried,living together number of children: 2 (one child is pt's, the other is her SO's) household members: significant other and children lives independently: Yes caregiver/support person: Yes housing: apartment pets and animals: Yes (cat) education level: college (some college) 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[employer]) current occupational exposures/hazards: No special frankie needs: No travel history: over 6 months ago seatbelt use: always water heater temp set < 120 deg: Yes working smoke detector in home: Yes fire extinguisher in home: No carbon monox detector in home: Yes firearms in home: No do you feel safe at home: Yes Smoking Status: Former smoker second hand exposure: No alcohol intake: never substance use type: does not use and marijuana (not recently, will not use while /) during the past year weight has: decreased > 10 lbs (intentional, fluctuates widely) well-balanced diet: daily or most days daily servings fruits/ve or more times/day caffeine: No Type(s) of exercise: walking and other (hiking) Smoking Status: Former smoker alcohol intake frequency: holidays/special occasions only Exam Narrative Exam Narrative: Vitals: Afebrile, tachycardic (HR 103F) all other vitals normal. Gen: Well developed, well nourished, in no acute distress. Neck: No midline tenderness to palpation alone the c-, t- l-spine. Flexion at neck limited to increase soft tissue mass, ROM with lateral rotation and extension limited due to pain. Kernig/Brudzinki's negative. Cards: Regular, no murmurs, rubs, or gallops. Pulm: Normal work of breathing. Clear to auscultation bilaterally. Abd: Obese, nondistended, nontender to palpation. Ext: No peripheral edema in bilaterally lower extremity. Neuro: A&Ox4, cranial nerved grossly intact, moving all 4 extremities spontaneously. Psych: Appropriate. Initial Vital Signs Initial Vital Signs: Vital Signs Temperature 98.2 F 09/16/25 15:24 Pulse Rate 103 H 09/16/25 15:24 Respiratory Rate 15 09/16/25 15:24 Blood Pressure 121/77 09/16/25 15:24 Pulse Oximetry 97 09/16/25 15:24 Oxygen Delivery Method Room Air 09/16/25 15:24 Course Orders Ordered: Discontinued Medications Cyclobenzaprine HCl (Cyclobenzaprine 10 Mg Tablet) 5 mg PO NOW ONE Stop: 09/16/25 18:42 Last Admin: 09/16/25 19:12 Dose: 5 mg Documented By: ROSEMARY Ketorolac Tromethamine (Ketorolac 30 Mg/Ml Vial) 30 mg IV NOW ONE Stop: 09/16/25 19:05 Last Admin: 09/16/25 19:14 Dose: 30 mg Documented By: ROSEMARY Lidocaine (Lidocaine 5% Patch) 1 each TOP NOW ONE Stop: 09/16/25 20:02 Last Admin: 09/16/25 20:18 Dose: 1 each Documented By: ROSEMARY Reevaluation(s) Reevaluation #1: Patient re-evaluated. She states that her symptoms have improved but not significant enough for her to be comfortable going home. Vital Signs Vital signs: Vital Signs - 8 hr 09/16/25 15:24 09/16/25 17:50 09/16/25 17:50 Temperature 98.2 F Pulse Rate 103 H 101 H Respiratory Rate 15 Blood Pressure 121/77 113/77 Pulse Oximetry 97 95 Oxygen Delivery Method Room Air MDM - Neck Pain/Injury MDM Narrative Medical decision making narrative: 30-year-old obese female with hypertension, hyperlipidemia, diabetes presents with 10 day history of progressively worsening neck pain. Differential diagnosis: Fractures, dislocation, muscle strain/sprain, pinched, nerve, less likley meningitis. Labs: None indicated. Imaging: HPI without trauma therefore imaging not ordered. EKG: Not indicated. Consults: None. ED course: The patient presented to the ED tachycardic and in pain, with all other vital signs within normal limits. Physical examination was most consistent with a cervical strain, with low suspicion for meningitis or traumatic cervical injury based on history and exam findings. Initial management included cyclobenzaprine and a lidocaine patch. On reevaluation, the patient reported minimal relief from the lidocaine patch and stated she needed to return to her family. I reviewed symptoms that would warrant immediate return to the ED, including worsening neck pain, neurologic deficits, fever, or inability to tolerate oral intake. Given persistent discomfort, the patient was advised she may increase cyclobenzaprine to 10 mg, and potential adverse effects including sedation and impaired coordination were discussed. She was discharged with a prescription for cyclobenzaprine. Supportive care measures were reviewed, including gentle stre tching, heat therapy, and activity modification. Written and verbal resources were provided. The patient remained hemodynamically stable and was discharged in improved condition with appropriate return precautions. Discharge Plan Departure Patient Disposition: Home Clinical Impression: Muscle strain Instructions: Neck Sprain Activity Restrictions/Additional Instructions: You were seen in the emergency department for neck pain. In the ER: - Your evaluation was not consistent with meningitis. If you start developing fevers, chills, nausea, vomiting or change in your personality or increased sleepiness, please return to the ER to be re-evaluated. - Your story is consistent with muscle strain and/or pinched nerve. You were given ibuprofen and flexeril for pain relief. - Lidocaine patch was also applied. - Imaging was not obtained given there was no trauma involved. Plan: - Take 600mg Ibuprofen every 6 hours as needed for pain or discomfort - Take 5-10 mg of flexeril every 8 hours as needed as a muscle relaxant - Look up on Youtube exercises for upper back and neck stretches - Continue to utilize these stretches Prescriptions: New cyclobenzaprine 5 mg tablet 5 mg PO TID PRN (Reason: muscle spasm) Qty: 14 0RF No Action (DME) pen needle, diabetic [1st Tier Unifine Pentips Plus] 32 gauge x 5/32 needle See Rx Instructions .Route Qty: 100 12RF Rx Instructions: Use to check BG levels QID Jardiance 10 mg tablet 10 mg PO QAM Qty: 90 3RF Patient Comments: per pt, not taken in months Rx Instructions: Take 1 tab daily with meal valacyclovir 1 gram tablet 1,000 mg PO BID Qty: 90 3RF calcium carbonate [Calcium 600] 600 mg calcium (1,500 mg) tablet 600 mg PO BID Qty: 180 0RF cholecalciferol (vitamin D3) 25 mcg (1,000 unit) capsule 25 mcg PO DAILY tirzepatide 7.5 mg/0.5 mL pen injector 7.5 mg SUBCUT QWEEK Qty: 2 0RF Rx Instructions: Week 9-12 tirzepatide 10 mg/0.5 mL pen injector 10 mg SUBCUT QWEEK Qty: 2 0RF Rx Instructions: Week 13-16 metformin 500 mg tablet extended release 24 hr 1,000 mg PO BID Qty: 120 11RF buspirone 10 mg tablet 10 mg PO BID Qty: 60 11RF (DME) Glucometer See Rx Instructions .Route .MEDSUPPLY Qty: 1 0RF Rx Instructions: Check FSBG daily and as needed. BRAND PER INSURANCE ([facility] [place]) lancette device See Rx Instructions .Route .MEDSUPPLY Qty: 1 0RF Rx Instructions: Check blood glucose daily and as needed. BRAND PER INSURANCE ([facility] [place]) Lancettes See Rx Instructions .Route .MEDSUPPLY Qty: 100 3RF Rx Instructions: Check FSBG daily and as needed. BRAND PER INSURANCE ([facility] [place]) glucose test strips See Rx Instructions .Route .MEDSUPPLY Qty: 100 3RF Rx Instructions: Check FSBG daily and as needed. BRAND PER INSURANCE ondansetron 8 mg tablet,disintegrating 8 mg PO TID PRN (Reason: nausea and vomiting) Qty: 90 2RF Rx Instructions: Take 1 tab SL every 8 hours as needed for nausea fluconazole 150 mg tablet 150 mg PO .COMPLEX Qty: 30 0RF Rx Instructions: take 1 tab by mouth every 72hrs for three doses, then take 1 tab weekly for 6 months hydrocodone-acetaminophen 5-325 mg tablet 1 tab PO Q8H PRN (Reason: pain) Qty: 8 0RF oxycodone-acetaminophen 5-325 mg tablet 1 tab PO Q6H PRN (Reason: pain) Qty: 14 0RF Referrals: August Dhaliwal DO [Primary Care Provider, Family Practice] Stand Alone Forms: Patient Portal/API
[2025-09-16] MEDS: CYCLOBENZAPRINE 10 MG TABLET 5 MG PO (19:12)
[2025-09-16] MEDS: KETOROLAC 30 MG/ML VIAL IV (19:14)
[2025-09-16] MEDS: LIDOCAINE 5% PATCH 1 EACH TOP (20:18)
== END 2025-09-16 20:43 | disposition home or self-care (01) ==
PROVIDERS: Emergency Provider Student in an Organized Health Care Education/Training Program; PCP Family Medicine
DX: S16.1XXA Strain of muscle, fascia and tendon at neck level, initial encounter (principal); M43.6 Torticollis; E11.9 Type 2 diabetes mellitus without complications; I10 Essential (primary) hypertension; X58.XXXA Exposure to other specified factors, initial encounter
CPT/HCPCS: 96372; 99283; J1885